=== PATIENT | female | born 1940 | race Caucasian/White ===

== ENCOUNTER 2017-03-30 12:37 | Emergency (ER) | payer MEDICARE, BC ==
[~2017-03-30] VITALS: Ht 172.7 cm; Wt 75.0 kg
[~2017-03-30 12:37] MED LIST: CALC200S; CALC500 PO; CARB200T16 PO; FLUR30CA12 PO; KCL10C PO; LACT PO; METR-1 PO; PREG25 PO; SYNT25TA PO; VITA20003 PO
[2017-03-30 12:43] VITALS: BP 139/84; PULSE 91; RESP 16; TEMP 97.7; O2SAT 99
--- NOTE | 2017-03-30 13:33 | PD ---
HPI Chief Complaint: Dizziness Time Seen by Provider: 12:55 Travel History International Travel<30 days: No Contact w/Intl Traveler<30days: No Traveled to known affect area: No History of Present Illness HPI This 76-year-old female is complaining of some pain in her neck. She says that she feels like the blood in her neck is not getting to her brain. He has been evaluated for blockage in her neck in the past. She has a history of dystonia and at the age of 21 had brain surgery for the dystonia. She had some left- sided headache earlier. She feels like her left ear is blocked. There is no history of trauma PFSH Past Medical History Arthritis: Yes Asthma: No Blood Disorders: No Cancer: No Cardiovascular Problems: Yes (CHF) High Cholesterol: Yes Congestive Heart Failure: Yes COPD: Yes Cerebrovascular Accident: No Diabetes: No Diminished Hearing: No Endocrine: Yes Gastrointestinal Disorders: Yes (GERD) GERD: No Glaucoma: No Genitourinary: No Headaches: No Hepatitis: No Hiatal Hernia: Yes Hypertension: No Immune Disorder: No Implanted Vascular Access Dvce: Yes Musculoskeletal: Yes (OA, NECK PAIN) Neurologic: Yes (DYSTONIA, NEUROPATHY FINGERS, RIGHT ARM & LEFT FOOT, VERTIGO) Psychiatric: No Reproductive: No Respiratory: Yes (COPD) Migraines: No Seizures: No Sleep Apnea: No Thyroid Disease: Yes Ulcer: No Past Surgical History Abdominal Surgery: Yes (APPY 63 years ago) AICD: No Appendectomy: Yes Arteriovenous Shunt: No Body Medical Devices: HARDWARE LEFT HAND, LEFT FOOT Cardiac Surgery: No Cholecystectomy: Yes Ear Surgery: No Endocrine Surgery: No Eye Surgery: No Genitourinary Surgery: No Gynecologic Surgery: Yes (C SECTION) Insulin Pump: No Joint Replacement: Yes (RIGHT AND LEFT HIP, RIGHTT SHOULDER) Neurologic Surgery: Yes (BRAIN SURGERY FOR DYSTONIA X 2) Oral Surgery: No Pacemaker: No Thoracic Surgery: No Tonsillectomy: Yes Other Surgery: Yes Social History Alcohol Use: No Tobacco Use: No Substance Use: No Allergies-Medications (Allergen,Severity, Reaction): Coded Allergies: Penicillin (Verified Allergy, Severe, , 03/30/17) ANAPHYLAXIS Reported Meds & Prescriptions Reported Meds & Active Scripts Active Active Prescriptions or Reported Medications Unobtainable Review of Systems General / Constitutional: No: Fever, Chills Eyes: No: Diploplia, Blurred Vision HENT: Positive: Headaches, No: Lightheadedness Cardiovascular: No: Chest Pain or Discomfort, Palpitations Respiratory: No: Shortness of Breath Gastrointestinal: No: Nausea, Vomiting Genitourinary: No: Urgency Musculoskeletal: No: Myalgias Neurologic: No: Focal Abnormalities Hematologic/Lymphatic: No: Easy Bruising Physical Exam Narrative GENERAL: Well-developed female SKIN: Focused skin assessment warm/dry. HEAD: Atraumatic. Normocephalic. EYES: Pupils equal and round. No scleral icterus. No injection or drainage. ENT: No nasal bleeding or discharge. Mucous membranes pink and moist. NECK: Trachea midline. No JVD. There are no carotid bruits. She complains of some pain with palpation on the left side of the neck CARDIOVASCULAR: Regular rate and rhythm. No murmur appreciated. RESPIRATORY: No accessory muscle use. Clear to auscultation. Breath sounds equal bilaterally. GASTROINTESTINAL: Abdomen soft, non-tender, nondistended. Hepatic and splenic margins not palpable. MUSCULOSKELETAL: No obvious deformities. No clubbing. No cyanosis. No edema. NEUROLOGICAL: Awake and alert. No obvious cranial nerve deficits. Motor grossly within normal limits. Normal speech. PSYCHIATRIC: Appropriate mood and affect; insight and judgment normal. Data Data Last Documented VS Vital Signs Date Time Temp Pulse Resp B/P Pulse Ox O2 Delivery O2 Flow Rate FiO2 03/30/17 15:32 63 20 146/67 99 03/30/17 14:45 Room Air 03/30/17 12:43 97.7 Orders Complete Blood Count With Diff (03/30/17 13:18) Basic Metabolic Panel (Bmp) (03/30/17 13:18) Ct Brain W/O Iv Contrast(Rout) (03/30/17 13:18) Cta Neck W Iv Contrast W 3d (03/30/17 ) Iohexol 350 Inj (Omnipaque 350 Inj) (03/30/17 14:33) Labs Laboratory Tests Test 03/30/17 13:30 White Blood Count 6.3 TH/MM3 Red Blood Count 4.31 MIL/MM3 Hemoglobin 13.8 GM/DL Hematocrit 40.2 % Mean Corpuscular Volume 93.3 FL Mean Corpuscular Hemoglobin 31.9 PG Mean Corpuscular Hemoglobin 34.2 % Concent Red Cell Distribution Width 13.2 % Platelet Count 236 TH/MM3 Mean Platelet Volume 8.6 FL Neutrophils (%) (Auto) 63.7 % Lymphocytes (%) (Auto) 22.5 % Monocytes (%) (Auto) 8.3 % Eosinophils (%) (Auto) 1.2 % Basophils (%) (Auto) 4.3 % Neutrophils # (Auto) 4.0 TH/MM3 Lymphocytes # (Auto) 1.4 TH/MM3 Monocytes # (Auto) 0.5 TH/MM3 Eosinophils # (Auto) 0.1 TH/MM3 Basophils # (Auto) 0.3 TH/MM3 CBC Comment DIFF FINAL Differential Comment Sodium Level 142 MEQ/L Potassium Level 5.0 MEQ/L Chloride Level 107 MEQ/L Carbon Dioxide Level 28.2 MEQ/L Anion Gap 7 MEQ/L Blood Urea Nitrogen 18 MG/DL Creatinine 0.79 MG/DL Estimat Glomerular Filtration 71 ML/MIN Rate Random Glucose 98 MG/DL Calcium Level 9.0 MG/DL MDM Medical Decision Making Medical Screen Exam Complete: Yes Emergency Medical Condition: Yes Medical Record Reviewed: Yes Differential Diagnosis Patient had had some left-sided headache and says that she feels like her blood vessel on the left side of the neck is blocked. I don't find any acute neurologic findings and will do a CT of the brain and CTA of the neck. Narrative Course CT scan of the brain shows postoperative changes which are stable when compared with previous scans. There is no acute intracranial abnormality. CTA of the carotids was obtained. He is noted to have critical stenosis at the origin of the left internal carotid string sign throughout the remainder of the internal carotid. There is reconstitution at the level of the skull base. The left vertebral originates directly from the arch. There is minimal atherosclerotic plaquing of the bifurcation on the right but no hemodynamically significant stenosis. I have reviewed previous charts. In 2002 there is a carotid ultrasound which suggests that she has total occlusion of the left internal carotid. She has seen Dr. Galdamez in the past and said she had seen Dr. Carrera at one time. Dr. Galdamez had told her that the stenosis was too severe for surgery. My plan was to discuss the case with vascular surgery. I discussed this with the patient and she does not wish to have surgery as she is aware of the risk of stroke. I have stressed to her the importance that she take aspirin. She will be released and she says she will probably follow-up with Dr. Carrera. Diagnosis Primary Impression: Carotid stenosis Qualified Code: I65.22 - Stenosis of left carotid artery Additional Instructions: take aspirin daily Scripts Unable to Obtain Active Prescriptions or Reported Meds Disposition: 01 DISCHARGE HOME Condition: Stable Lion Sage MD Mar 30, 2017 13:33
[2017-03-30 13:35] VITALS: BP 147/74; PULSE 73; RESP 20; O2SAT 97
[2017-03-30 13:44] LABS: BASOPHIL # 0.3 TH/MM3 (0-0.2); BASOPHIL % 4.3 % (0.0-2.0); EOSINOPHIL # 0.1 TH/MM3 (0-0.4); EOSINOPHIL % 1.2 % (0.0-4.0); HEMATOCRIT 40.2 % (35.0-46.0); HEMO FLAGS DIFF FINAL; LYMPH % 22.5 % (9.0-44.0); LYMPHOCYTE # 1.4 TH/MM3 (1.0-4.8); MEAN CELL VOLUME 93.3 FL (80.0-100.0); MEAN CORPUSCULAR HEMOGLOBIN 31.9 PG (27.0-34.0); MEAN CORPUSCULAR HGB CONC 34.2 % (32.0-36.0); MONO % 8.3 % (0.0-8.0); NEUT % 63.7 % (16.0-70.0); PLATELET COUNT 236 TH/MM3 (150-450); RED BLOOD COUNT 4.31 MIL/MM3 (4.00-5.30); RED CELL DISTRIBUTION WIDTH 13.2 % (11.6-17.2); WHITE BLOOD COUNT 6.3 TH/MM3 (4.0-11.0)
[2017-03-30 13:53] LABS: BICARBONATE 28.2 MEQ/L (21.0-32.0)
[2017-03-30] MEDS ORDERED: IOHEXOL 350 MG/ML 10 ML VIAL (for RAD DIAG) IV ONE (14:33)
[2017-03-30 14:45] VITALS: BP 140/74; PULSE 74; RESP 16; O2SAT 99
--- NOTE | 2017-03-30 14:46 | RADRPT ---
EXAM DATE/TIME: 03/30/2017 14:12 [facility] COMPARISON: CT BRAIN W/O CONTRAST, November 20, 2010, 13:45. INDICATIONS : Cephalgia. Dizziness. RADIATION DOSE: 59.65 CTDIvol (mGy) MEDICAL HISTORY : Chronic obstructive pulmonary disease. Congestive heart failure. Gastroesophageal reflux disease.Dyst onia. SURGICAL HISTORY : Appendectomy. Cholecystectomy. section.Brain surgery for dystonia. ENCOUNTER: Initial ACUITY: 1 day PAIN SCALE: 4/10 LOCATION: cranial TECHNIQUE: Multiple contiguous axial images were obtained of the head. Using automated exposure control and adj ustment of the mA and/or kV according to patient size, radiation dose was kept as low as reasonably a chievable to obtain optimal diagnostic quality images. FINDINGS: CEREBRUM: Postsurgical features with clips noted near the left frontal horn along the left midbrain perimesence phalic region. Left frontoparietal insufflation defect or with bilateral basal ganglia lacunar infarc ts unchanged from prior exam. Winston-white matter differentiation is otherwise maintained. The ventricl es are stable and slightly asymmetrical. No evidence of midline shift, mass lesion, hemorrhage or ac [place] infarction. No extra-axial fluid collections are seen. POSTERIOR FOSSA: The cerebellum and brainstem are intact. The 4th ventricle is midline. The cerebellopontine angle i s unremarkable. EXTRACRANIAL: The visualized portion of the orbits is intact. SKULL: Stable postsurgical changes of left high parietal craniectomy. CONCLUSION: 1. Stable postoperative changes, as above. 2. No acute intracranial abnormality. Luis Enrique Weaver MD on March 30, 2017 at 14:37 Board Certified Radiologist. This report was verified electronically.
--- NOTE | 2017-03-30 15:28 | RADRPT ---
EXAM DATE/TIME: 03/30/2017 14:12 [facility] COMPARISON: CT BRAIN W/O CONTRAST, March 30, 2017, 14:12. CT ABDOMEN & PELVIS W CONTRAST, November 03, 2015, 12:20 . INDICATIONS : Left neck pain. Evaluate for occlusion. IV CONTRAST: 75 cc Omnipaque 350 (iohexol) IV RADIATION DOSE: 42.89 CTDIvol (mGy) MEDICAL HISTORY : Chronic obstructive pulmonary disease. Congestive heart failure. Gastroesophageal reflux disease. Dys jamaal. SURGICAL HISTORY : Appendectomy. Cholecystectomy. section. Brain surgery for dystonia. ENCOUNTER: Initial ACUITY: 4 - 6 days PAIN SCALE: 4/10 LOCATION: Left neck Elevated flow velocities and ICA/CCA ratios have been found to correlate with increased degrees of vessel stenosis, calculated as percentage of diameter relative to a normal segment of distal ICA/CCA. TECHNIQUE: Volumetric scanning was performed using a multirow detector CT scanner. The data was post processed with a variety of visualization algorithms including full-volume maximum intensity projection, multip lanar sliding thin-slab reformation, curved-planar reformation, and surface-rendering techniques. Us ing automated exposure control and adjustment of the mA and/or kV according to patient size, radiatio n dose was kept as low as reasonably achievable to obtain optimal diagnostic quality images. FINDINGS: AORTIC ARCH: The left vertebral originates directly from the arch. The origins of the great vessels are widely pat ent. RIGHT CAROTID: The common carotid is widely patent. There is mild atherosclerotic plaquing at the bifurcation. The i nternal carotid is widely patent throughout its course. LEFT CAROTID: The common carotid is widely patent. The examination demonstrates a critical stenosis at the origin o f the left internal carotid. There is essentially a string sign throughout the entire remainder of th e internal carotid. There is reconstitution at the level the skull base. VERTEBRALS: The left vertebral originates directly from the arch and is somewhat smaller than the right. The righ t is a sizable vessel. Both are widely patent. CONCLUSION: 1. Left carotid: 2. There is critical stenosis at the origin of the left internal carotid. The entire left internal ca rotid up to the skull base is diminutive in size. There is reconstitution at the level of the skull b ase with a patent left MCA. 3. The left vertebral originates directly from the arch. 4. Minimal atherosclerotic plaquing of the bifurcation on the right with no hemodynamically significa nt stenosis. Harpreet Melchor MD on March 30, 2017 at 15:17 Board Certified Radiologist. This report was verified electronically.
[2017-03-30 15:32] VITALS: BP 146/67; PULSE 63; RESP 20; O2SAT 99
[2017-03-30] MEDS ORDERED: ASPIRIN 325 MG TAB PO ONE (16:00)
== END 2017-03-30 17:01 | disposition home or self-care (01) ==
LOC: PHED 12:37
DX: I65.22 Occlusion and stenosis of left carotid artery (principal); R51 Headache; E78.00 Pure hypercholesterolemia, unspecified; I50.9 Heart failure, unspecified; J44.9 Chronic obstructive pulmonary disease, unspecified; K21.9 Gastro-esophageal reflux disease without esophagitis
CPT/HCPCS: 70450; 70498; 80048; 85025; 99285; Q9967

== ENCOUNTER 2018-01-23 18:22 | Inpatient (IN) | payer MEDICARE, BC ==
[~2018-01-23] VITALS: Ht 177.8 cm; Wt 78.0 kg
[2018-01-23] VITALS (12 sets, daily range): BP systolic 138–210; BP diastolic 60–110; PULSE 68–115; RESP 16–20; TEMP 98.9; O2SAT 95–100
[2018-01-23] MEDS ORDERED: IODIXANOL 320 MG/ML 10 ML VIAL (for Rad CT) IVCONTRAST ONE (18:23)
[2018-01-23] MEDS ORDERED: SODIUM CHLOR 0.9% 1000 ML INJ 1,000 ML IV ONE (18:27)
[2018-01-23 18:47] LABS: AUTOMATED NEUTROPHIL # 6.4 TH/MM3 (1.8-7.7); BASOPHIL # 0.1 TH/MM3 (0-0.2); BASOPHIL % 1.1 % (0.0-2.0); EOSINOPHIL # 0.3 TH/MM3 (0-0.4); EOSINOPHIL % 2.2 % (0.0-4.0); HEMATOCRIT 39.5 % (35.0-46.0); HEMOGLOBIN 13.7 GM/DL (11.6-15.3); LYMPH % 36.6 % (9.0-44.0); LYMPHOCYTE # 4.5 TH/MM3 (1.0-4.8); MEAN CELL VOLUME 96.1 FL (80.0-100.0); MEAN CORPUSCULAR HEMOGLOBIN 33.3 PG (27.0-34.0); MEAN CORPUSCULAR HGB CONC 34.7 % (32.0-36.0); MEAN PLATELET VOLUME 9.5 FL (7.0-11.0); MONO % 8.1 % (0.0-8.0); PLATELET COUNT 256 TH/MM3 (150-450); RED BLOOD COUNT 4.11 MIL/MM3 (4.00-5.30); RED CELL DISTRIBUTION WIDTH 14.3 % (11.6-17.2); WHITE BLOOD COUNT 12.3 TH/MM3 (4.0-11.0)
--- NOTE | 2018-01-23 18:48 | PD ---
HPI Chief Complaint: Stroke Alert Time Seen by Provider: 18:27 Travel History International Travel<30 days: No Contact w/Intl Traveler<30days: No Traveled to known affect area: No History of Present Illness HPI 77-year-old female was brought to the emergency room by EMS for a stroke alert emergently. She was last seen normal at 5:15 PM. The son noticed after that that she was having some slurred speech. When this did not get better he called 911. EMS arrived and noticed dysarthria as well. Blood pressure was 170 /70. Patient was complaining of headache. She is awake and GCS is 15. Patient was also noticed to have a left-sided facial droop but as per the patient she has had a facial droop in the past. Patient is following commands. Headache is generalized. Patient is not on any blood thinners. PFSH Past Medical History Narrative Medical List of her past medical, surgical, social and family history reviewed from the nursing note. Arthritis: Yes Asthma: No Blood Disorders: No Cancer: No Cardiovascular Problems: Yes (CHF) High Cholesterol: Yes Congestive Heart Failure: Yes COPD: Yes Cerebrovascular Accident: No Diabetes: No Diminished Hearing: No Endocrine: Yes Gastrointestinal Disorders: Yes (GERD) GERD: No Glaucoma: No Genitourinary: No Headaches: No Hepatitis: No Hiatal Hernia: Yes Hypertension: No Immune Disorder: No Implanted Vascular Access Dvce: Yes Musculoskeletal: Yes (OA, NECK PAIN) Neurologic: Yes (DYSTONIA, NEUROPATHY FINGERS, RIGHT ARM & LEFT FOOT, VERTIGO) Psychiatric: No Reproductive: No Respiratory: Yes (COPD) Migraines: No Seizures: No Sleep Apnea: No Thyroid Disease: Yes Ulcer: No Past Surgical History Abdominal Surgery: Yes (APPY 63 years ago) AICD: No Appendectomy: Yes Arteriovenous Shunt: No Body Medical Devices: HARDWARE LEFT HAND, LEFT FOOT Cardiac Surgery: No Cholecystectomy: Yes Ear Surgery: No Endocrine Surgery: No Eye Surgery: No Genitourinary Surgery: No Gynecologic Surgery: Yes (C SECTION) Insulin Pump: No Joint Replacement: Yes (RIGHT AND LEFT HIP, RIGHTT SHOULDER) Neurologic Surgery: Yes (BRAIN SURGERY FOR DYSTONIA X 2) Oral Surgery: No Pacemaker: No Thoracic Surgery: No Tonsillectomy: Yes Other Surgery: Yes Social History Alcohol Use: No Tobacco Use: No Substance Use: No Allergies-Medications (Allergen,Severity, Reaction): Coded Allergies: penicillin G (Unverified Allergy, Severe, , 05/24/17) ANAPHYLAXIS Comments List of her allergies reviewed from the nursing note. Reported Meds & Prescriptions Reported Meds & Active Scripts Active Reported Tramadol (Tramadol HCl) 50 Mg Tab 50 Mg PO Q8H PRN Temazepam 15 Mg Cap 15 Mg PO HS PRN Prednisone 2.5 Mg Tab 2.5 Mg PO DAILY Narrative Medication List of her home medications reviewed from the nursing note. Review of Systems Except as stated in HPI: all other systems reviewed are Neg Neurologic: Positive: Weakness, Headache Physical Exam Narrative GENERAL: Awake, alert, anxious, elderly, moderate to SKIN: Focused skin assessment warm/dry. HEAD: Atraumatic. Normocephalic. EYES: Pupils equal and round. No scleral icterus. No injection or drainage. ENT: No nasal bleeding or discharge. Mucous membranes pink and moist. NECK: Trachea midline. No JVD. CARDIOVASCULAR: Regular rate and rhythm. No murmur appreciated. RESPIRATORY: No accessory muscle use. Clear to auscultation. Breath sounds equal bilaterally. GASTROINTESTINAL: Abdomen soft, non-tender, nondistended. Hepatic and splenic margins not palpable. MUSCULOSKELETAL: No obvious deformities. No clubbing. No cyanosis. No edema. NEUROLOGICAL: Awake and alert. No obvious cranial nerve deficits. NIH stroke score of 5 for left-sided facial droop and left lower extremity weakness. Patient also has dysarthria. PSYCHIATRIC: Appropriate mood and affect; insight and judgment normal. Data Data Last Documented VS Vital Signs Date Time Temp Pulse Resp B/P (MAP) Pulse Ox O2 Delivery O2 Flow Rate FiO2 01/23/18 18:46 69 16 155/72 (99) 99 Room Air 01/23/18 18:38 21 Orders Orders Diet Npo (01/23/18 Dinner) Activity Bed Rest (01/23/18 ) Electrocardiogram (01/23/18 ) I-Stat Profile (01/23/18 18:27) Prothrombin Time / Inr (Pt) (01/23/18 18:27) Act Partial Throm Time (Ptt) (01/23/18 18:27) Complete Blood Count With Diff (01/23/18 18:27) Fibrinogen (01/23/18 18:27) Creatine Kinase (Cpk) (01/23/18 18:27) Troponin I (01/23/18 18:27) Ua Includes Microscopic (01/23/18 18:27) Drug Screen, Random Urine (01/23/18:) Type And Screen (01/23/18:) Ct Brain W/O Iv Contrast(Rout) (01/23/18 ) Cta Brain W Iv Contrast W 3d (01/23/18 18:27) Beta Hcg (Quant/Titer) (01/23/18 18:) Consult Neurology (01/23/18 ) Blood Glucose (01/23/18 18:) Ecg Monitoring (01/23/18:) Neuro Checks Q2HX12,Q4H (01/23/18 18:) Nursing Bedside Swallow Assess .ONCE (01/23/18:) Iv Access Insert/Monitor (01/23/18:) NPO (01/23/18 18:) Oximetry (01/23/18 18:) Resp Oxygen Nc Stroke (01/23/18 ) Sodium Chlor 0.9% 1000 Ml Inj (Ns 1000 M (01/23/18 18:27) Cath For Specimen (01/23/18 18:) Nicardipine Inj (Cardene Inj) (01/23/18 18:45) (Hub Use Only)Inp Phy Cons/Ref (01/23/18 ) Ondansetron Inj (Zofran Inj) (01/23/18 19:00) Ondansetron Inj (Zofran Inj) (01/23/18 19:00) Propofol 1000 Mg/100 Ml Inj (Diprivan 10 (01/23/18 19:00) Succinylcholine Inj (Quelicin Inj) (01/23/18 19:00) Etomidate Inj (Amidate Inj) (01/23/18 19:00) Etomidate Inj (Amidate Inj) (01/23/18 19:02) Propofol 500 Mg/50 Ml Inj (Diprivan 500 (01/23/18 19:03) Rebecca-Gastric Tube Insert/Mon (01/23/18 19:02) Urinary Catheter Insert/Apply (01/23/18 19:02) Admit Order (Ed Use Only) (01/23/18 19:02) Labs Laboratory Tests Test 01/23/18 18:30 White Blood Count 12.3 TH/MM3 Red Blood Count 4.11 MIL/MM3 Hemoglobin 13.7 GM/DL Bedside Hemoglobin 13.3 G/DL Hematocrit 39.5 % Bedside Hematocrit 39.0 % Mean Corpuscular Volume 96.1 FL Mean Corpuscular Hemoglobin 33.3 PG Mean Corpuscular Hemoglobin Concent 34.7 % Red Cell Distribution Width 14.3 % Platelet Count 256 TH/MM3 Mean Platelet Volume 9.5 FL Neutrophils (%) (Auto) 52.0 % Lymphocytes (%) (Auto) 36.6 % Monocytes (%) (Auto) 8.1 % Eosinophils (%) (Auto) 2.2 % Basophils (%) (Auto) 1.1 % Neutrophils # (Auto) 6.4 TH/MM3 Lymphocytes # (Auto) 4.5 TH/MM3 Monocytes # (Auto) 1.0 TH/MM3 Eosinophils # (Auto) 0.3 TH/MM3 Basophils # (Auto) 0.1 TH/MM3 CBC Comment AUTO DIFF Differential Comment AUTO DIFF CONFIRMED Platelet Estimate NORMAL Platelet Morphology Comment NORMAL Prothrombin Time 9.9 SEC Prothromb Time International Ratio 1.0 RATIO Activated Partial Thromboplast Time 21.4 SEC Fibrinogen 361 mg/dL Bedside Sodium 140 MMOL/L Bedside Potassium 3.7 MMOL/L Bedside Chloride 108 MMOL/L Bedside Blood Urea Nitrogen 22 MG/DL Bedside Creatinine 0.7 MG/DL Bedside Glucose 130 MG/DL Total Creatine Kinase 47 U/L Troponin I LESS THAN 0.02 NG/ML Human Chorionic Gonadotropin, Quant 3 MIU/ML MDM Medical Decision Making Medical Screen Exam Complete: Yes Emergency Medical Condition: Yes Medical Record Reviewed: Yes Differential Diagnosis Acute CVA, intracranial bleed Narrative Course 6:45 PM I discussed with the case with Dr. Mirza after the stroke alert was called. He wanted me to call him back after the CT scan report. I was just told that patient is in the CT scanner and she has a large head bleed. She is getting a CT angiogram of the brain as well. I put a call out for the geographic information system surveyor and the neurosurgeon. The nurse told me that patient had a large emesis in the CT scan. 6:53 PM I discussed the case with Dr. Johns from neurosurgery. Awaiting for the geographic information system surveyor to call back. 7:37 PM I decided to intubate the patient when she came back from the CT since she continues to be nauseous and I was concerned off a possibility of declining GCS and aspiration. Please refer to my procedure note. Patient tolerated the procedure well. Her son was in the room and I discussed the case with her son and let him know about the test results and the plan. I discussed the case with the radiologist and as per him he does not see any aneurysmal bleed on the CTA. There is some metal in the brain that he can see which he does not think is aneurysm coils. I discussed it with her son who is here and he said she had a vein surgery for her dystonia when she was 19 or 20 years old at [facility]. He does not know any details more than that about it. I have let Dr. Frederick know about the CTA findings. Patient has a blood pressure 158/60 at this point on Cardene drip. Critical Care Narrative Aggregate critical care time was 75 minutes. Time to perform other separately billable procedures was not included in the critical care time. My time did not include minutes spent treating any other patients simultaneously or on activities that did not directly contribute to the patient's treatment. The services I provided to this patient were to treat and/or prevent clinically significant deterioration that could result in: Neurologic deficit, intracranial bleed, nicardipine drip I provided critical care services requiring my management, as noted below: Chart data review, documentation time, medication orders and management, vital sign assessments/reviewing monitor data, ordering and reviewing lab tests, ordering and interpreting/reviewing x-rays and diagnostic studies, care of the patient and discussion of the patient with the admitting physicians. Procedures Procedure Narrative After the risks and benefits were discussed the following procedure was performed: INTUBATION: The patient was put in optimal position for the procedure. Rapid sequence intubation was initiated by me using 20 milligrams of etomidate IV and 100 milligrams of succinylcholine IV. The patient was intubated with a 7.5 cuffed endotracheal tube. Tube placement was confirmed by visualization of the tube and balloon passing through the cords, capnometry and subsequent chest x-ray. Breath sounds were equal and well aerated bilaterally postintubation. No breath sounds over stomach. Patient tolerated procedure well. EKG Prior to Arrival: No Physician Communication Physician Communication Dr. Mirza Diagnosis Primary Impression: Intracranial bleed Additional Impression: Hypertensive emergency Admitting Information Admitting Physician Requests: it Cristiano Zhao MD Jan 23, 2018 18:48
--- NOTE | 2018-01-23 18:52 | RADRPT ---
EXAM DATE/TIME: 01/23/2018 18:33 [facility] COMPARISON: CT BRAIN W/O CONTRAST, March 30, 2017, 14:12. INDICATIONS : Slurred speech RADIATION DOSE: 56.35 CTDIvol (mGy) This report was called to Dr. Zhao at 1845 MEDICAL HISTORY : Unable to obtain SURGICAL HISTORY : Unable to obtain ENCOUNTER: Initial ACUITY: 1 day PAIN SCALE: 0/10 LOCATION: cranial TECHNIQUE: Multiple contiguous axial images were obtained of the head. Using automated exposure control and adj ustment of the mA and/or kV according to patient size, radiation dose was kept as low as reasonably a chievable to obtain optimal diagnostic quality images. DICOM format image data is available electro nically for review and comparison. FINDINGS: There is parenchymal hemorrhage in the nasal cisterns involving the vermis of the cerebellum. The bl ood is combined to the subdural space, subarachnoid space and some parenchymal. This is suspicious f or a vascular bleed . Hemorrhagic stroke is the consideration. CT is pending to exclude avascular s ource. The fourth ventricle is midline. In the supratentorial brain there are some surgical clips evident. There is mild central and cortica l atrophy. CONCLUSION: Vermian Hemorrhage midline posterior fossa as described above without blood in the fourth ventricle. This could be hemorrhagic stroke. Vascular bleed is another consideration. CTA is pending. Juan Melchor MD FACR on January 23, 2018 at 18:44 Board Certified Radiologist. This report was verified electronically.
[2018-01-23] MEDS ORDERED: ETOMIDATE 20 MG/10 ML VIAL IV PUSH ONE (19:00)
[2018-01-23] MEDS ORDERED: PROPOFOL 1000 MG/100 ML INJ 100 ML IV PRN (19:00)
[2018-01-23] MEDS ORDERED: ONDANSETRON HCL 4 MG/2 ML VIAL ONE (19:00)
[2018-01-23] MEDS ORDERED: ONDANSETRON HCL 4 MG/2 ML VIAL IV PUSH ONE (19:00)
[2018-01-23] MEDS ORDERED: SUCCINYLCHOLINE CHLORIDE 100 MG/5 ML SYRINGE IV PUSH ONE (19:00)
[2018-01-23] MEDS ORDERED: ETOMIDATE 40 MG/20 ML VIAL ONE (19:02)
[2018-01-23] MEDS ORDERED: PROPOFOL 500 MG/50 ML INJ 50 ML ONE (19:03)
[2018-01-23 19:04] LABS: TROPONIN I LESS THAN 0.02 NG/ML (0.02-0.05)
[2018-01-23 19:06] LABS: PROTHROMBIN TIME - PATIENT 9.9 SEC (9.8-11.6)
--- NOTE | 2018-01-23 19:38 | RADRPT ---
EXAM DATE/TIME: 01/23/2018 18:47 [facility] COMPARISON: CT BRAIN W/O CONTRAST, March 30, 2017, 14:12. CT BRAIN W/O CONTRAST, January 23, 2018, 18:33. INDICATIONS : Slurred speech IV CONTRAST: 99 cc Visipaque (iodixanol) IV ; Cumulative dose for multiple exams. RADIATION DOSE: 9.94 CTDIvol (mGy) ; Combined studies MEDICAL HISTORY : Unable to obtain SURGICAL HISTORY : Unable to obtain ENCOUNTER: Initial ACUITY: 1 day PAIN SCALE: 0/10 LOCATION: CTA brai TECHNIQUE: Volumetric scanning was performed using a multi-row detector CT scanner. The data was post processed with a variety of visualization algorithms including full volume maximum intensity projection, multi -planar sliding thin slab reformation, curved planar reformation, and surface rendering techniques. Using automated exposure control and adjustment of the mA and/or kV according to patient size, radiat ion dose was kept as low as reasonably achievable to obtain optimal diagnostic quality images. DICO M format image data is available electronically for review and comparison. FINDINGS: There is occlusion of the left internal carotid artery. The right internal carotid artery is patent. There is a patent anterior communicating artery. The anterior and middle cerebral arteries on the lef t are filled via collaterals. There is asymmetry to the vertebral arteries with the right vertebral a rtery being the dominant vertebral artery. The basilar artery is seen to normally bifurcate into the posterior cerebral arteries. There is patent posterior communicating artery on the left. An aneurysm is not seen. CONCLUSION: Occlusion of the left internal carotid artery. An aneurysm is not seen. Brayan Marion MD on January 23, 2018 at 19:28 Board Certified Radiologist. This report was verified electronically.
[2018-01-23] MEDS: niCARdipine INJ 25 MG in SODIUM CHLOR 0.9% 250 ML INJ 240 ML IV PRN (19:43)
[2018-01-23] MEDS ORDERED: GLUCAGON 1 MG/ML VIAL OTHER PRN (19:45)
[2018-01-23] MEDS ORDERED: CHLORHEXIDINE GLUCONATE 2 % 1 PACK (2 CLOTHS) TOP PRN (20:00)
[2018-01-23] MEDS ORDERED: LACTULOSE SYRUP 20 GM/30 ML CUP PO PRN (20:00)
[2018-01-23] MEDS ORDERED: MAGNESIUM HYDROXIDE SUSP 30 ML CUP PO PRN (20:00)
[2018-01-23] MEDS ORDERED: SENNOSIDES 8.6 MG TAB PO PRN (20:00)
[2018-01-23] MEDS ORDERED: SODIUM CHLORIDE 0.9% FLUSH 10 ML FLUSH IV FLUSH PRN (20:00)
[2018-01-23] MEDS ORDERED: BISACODYL 10 MG SUPP RECTAL PRN (20:00)
[2018-01-23] MEDS ORDERED: NURSING INFORMATION XX SCH (20:00)
[2018-01-23] MEDS ORDERED: ACETAMINOPHEN 325 MG TAB NG PRN (20:00)
[2018-01-23] MEDS: CHLORHEXIDINE 0.12% (ORAL KIT) 15 ML CUP MT SCH (20:00)
--- NOTE | 2018-01-23 20:05 | RADRPT ---
EXAM DATE/TIME: 01/23/2018 18:47 [facility] COMPARISON: CTA CAROTID ARTERIES W 3D RECON, January 23, 2018, 14:30. INDICATIONS : Stroke alert. IV CONTRAST: 99 cc Visipaque (iodixanol) IV ; Cumulative dose for multiple exams. RADIATION DOSE: 9.89 CTDIvol (mGy) ; Combined studies MEDICAL HISTORY : Non-responsive. SURGICAL HISTORY : Non-responsive. ENCOUNTER: Initial ACUITY: 1 day PAIN SCALE: Non-responsive LOCATION: Bilateral neck Elevated flow velocities and ICA/CCA ratios have been found to correlate with increased degrees of vessel stenosis, calculated as percentage of diameter relative to a normal segment of distal ICA/CCA. TECHNIQUE: Volumetric scanning was performed using a multirow detector CT scanner. The data was post processed with a variety of visualization algorithms including full-volume maximum intensity projection, multip lanar sliding thin-slab reformation, curved-planar reformation, and surface-rendering techniques. Us ing automated exposure control and adjustment of the mA and/or kV according to patient size, radiatio n dose was kept as low as reasonably achievable to obtain optimal diagnostic quality images. DICOM f ormat image data is available electronically for review and comparison. FINDINGS: AORTIC ARCH: There is a three-vessel origin of the great vessels from the aorta. No evidence of ostial narrowing. Calcifications are seen aortic arch. The left vertebral artery arises from the base of the left subc lavian artery. RIGHT CAROTID: The common carotid artery is intact. There is calcifications in the carotid bulb region. The internal carotid artery lumen is smooth without stenosis. The external carotid artery is intact. LEFT CAROTID: The common carotid artery is intact. There is plaque at the carotid bulb region. There is occlusion of the left internal carotid artery. The external carotid artery is intact. VERTEBRALS: The vertebral arteries have a symmetric diameter. No stenotic lesions are seen. CONCLUSION: Occlusion of the left internal carotid artery. Brayan Marion MD on January 23, 2018 at 19:58 Board Certified Radiologist. This report was verified electronically.
--- NOTE | 2018-01-23 20:14 | RADRPT ---
EXAM DATE/TIME: 01/23/2018 19:17 [facility] COMPARISON: CHEST SINGLE AP, November 05, 2015, 11:05. INDICATIONS : Post intubation. MEDICAL HISTORY : Unobtainable. SURGICAL HISTORY : Unobtainable. ENCOUNTER: Initial ACUITY: 1 day PAIN SCORE: Non-responsive. LOCATION: Bilateral chest FINDINGS: The patient is intubated with the tip of ET tube 1 cm from the gordon. NG tube tip is directed into t he stomach. The heart size is normal. The lungs are grossly clear. There is a right shoulder prosthes is. CONCLUSION: ET tube 1 cm from the gordon. Brayan Marion MD on January 23, 2018 at 20:10 Board Certified Radiologist. This report was verified electronically.
--- NOTE | 2018-01-23 20:16 | HHI.HP ---
[facility] Service Critical Care Medicine Primary Care Physician Shant Stringer MD Admission Diagnosis Intracranial bleed, hypertensive crisis Diagnosis: (1) Acute respiratory failure Diagnosis: Principal (2) Intracranial hemorrhage Diagnosis: Principal (3) Hypertensive emergency Diagnosis: Principal (4) Hypothyroidism Diagnosis: Secondary (5) Dystonia Diagnosis: Secondary (6) Leukocytosis Diagnosis: Secondary Chief Complaint: Altered mental status a stroke alert with left-sided weakness and aphasia Travel History International Travel<30 Days: No Contact w/Intl Traveler <30 Da: No Traveled to Known Affected Are: No History of Present Illness This is a 77-year-old female. Date of admission 01/23/2018. Past medical history includes dystonia status post brain surgery 2, chronic left carotid stenosis since 2004, hypertension, sciatica, hypothyroidism, depression , dyslipidemia, IBS, peripheral neuropathy, gastroesophageal disease, COPD with no history of tobaccoism? chronic pericardial effusion?, Osteoarthritis with chronic respiratory weakness due to dystonia. She presents to [facility] as a stroke alert. She was last seen normal at 5:15 PM. Her son noticed slurred speech. EMS was called. Dysarthria and left-sided weakness was noted as well. She was hypertensive with systolic blood pressure in the 170s. She is complaining of generalized headache. Initially, awake and GCS is 15. Patient was also noticed to have a left-sided facial droop but as per the patient she has had a facial droop in the past. Patient is following commands. Headache is generalized. Patient is not on any blood thinners. But occasionally takes ibuprofen CT brain revealed midline posterior hemorrhage involving the vermis/cerebellar bleed. This involves the subdural, subarachnoid and intra-parenchymal space. CT angiogram of the brain revealed no signs of aneurysm. Chronic left internal carotid occlusion. Patient had decline in mental status/was not protecting her airway due to secretions and was emergently intubated by the ED physician using etomidate and succinylcholine. She is currently hypertensive in spontaneously moving her right upper extremity and lower extremity on the ventilator on 50 mg/ mg/min of propofol. Discussed with Dr. Anderson. Recommended systolic blood pressure between 110-140. No hypertonic saline. No seizure prophylaxis. Repeat brain CT in a.m. Review of Systems ROS Limitations: Intubated Past Family Social History Allergies: Coded Allergies: penicillin G (Unverified Allergy, Severe, , 8/15/17) ANAPHYLAXIS Past Medical History Dystonia Chronic left carotid stenosis since 2004 complete occlusion Sciatica Hyperlipidemia Hypothyroidism Osteoporosis/osteoarthritis peripheral neuropathy Chronic right upper extremity weakness/chronic due to her dystonia Depression History of rheumatoid fevers childhood Chronic pericardial effusion Insomnia Allergic rhinitis Past Surgical History T&A Appendectomy Left ankle ORIF Right total hip replacement Left total hip replacement Right rotator cuff repair Right carpal tunnel release Brain surgery 2 clippings for dystonia at [place] Left arm unknown type Reported Medications Unknown. Active Ordered Medications Reviewed in EMR Family History Because her father with hypertension. Mother with osteoarthritis, asthma and cataracts, diverticulosis, COPD, hemorrhoids, dyslipidemia, anxiety, osteoporosis ulcer disease stroke and hypothyroidism. Social History . 2 sons. Does not use alcohol use. No tobacco use ever. No illicit drug use Physical Exam Vital Signs Vital Signs Date Time Temp Pulse Resp B/P (MAP) Pulse Ox O2 Delivery O2 Flow Rate FiO2 01/23/18 19:45 98.9 89 16 155/67 (96) 100 Ventilator 50 01/23/18 19:43 100 01/23/18 19:37 92 20 158/60 (92) 100 Ventilator 50 01/23/18 19:10 115 20 210/110 (143) 98 Ventilator 50 01/23/18 18:46 69 16 155/72 (99) 99 Room Air 01/23/18 18:45 99 Room Air 01/23/18 18:38 95 Room Air 21 01/23/18 18:33 98 21 01/23/18 18:26 68 18 148/72 (97) 99 Room Air Physical Exam GENERAL: 77-year-old female currently orotracheally intubated SKIN: Warm and dry. No rash HEAD: Atraumatic. Normocephalic. EYES: Pupils equal and round about 3 mm bilaterally and reactive. No scleral icterus. No injection or drainage. ENT: No nasal bleeding or discharge. Mucous membranes pink and moist. NECK: Trachea midline. No JVD. CARDIOVASCULAR: Regular rate and rhythm. S1, S2 no S4. Without murmurs, clicks gallops or rubs RESPIRATORY: No accessory muscle use. Clear to auscultation. Breath sounds equal bilaterally. GASTROINTESTINAL: Abdomen soft, non-tender, nondistended. Hypoactive bowel sounds are appreciated MUSCULOSKELETAL: Extremities without significant peripheral edema. No obvious deformities. NEUROLOGICAL: Arousable on the ventilator. Pointing to ET tube. Strength is 5 out of 5 right upper lobe 30. 3 out of 5 left upper lower extremity. Prior to admission positive for aphasia/dysarthria. Laboratory Laboratory Tests Test 01/23/18 18:30 White Blood Count 12.3 Red Blood Count 4.11 Hemoglobin 13.7 Bedside Hemoglobin 13.3 Hematocrit 39.5 Bedside Hematocrit 39.0 Mean Corpuscular Volume 96.1 Mean Corpuscular Hemoglobin 33.3 Mean Corpuscular Hemoglobin Concent 34.7 Red Cell Distribution Width 14.3 Platelet Count 256 Mean Platelet Volume 9.5 Neutrophils (%) (Auto) 52.0 Lymphocytes (%) (Auto) 36.6 Monocytes (%) (Auto) 8.1 Eosinophils (%) (Auto) 2.2 Basophils (%) (Auto) 1.1 Neutrophils # (Auto) 6.4 Lymphocytes # (Auto) 4.5 Monocytes # (Auto) 1.0 Eosinophils # (Auto) 0.3 Basophils # (Auto) 0.1 CBC Comment AUTO DIFF Differential Comment AUTO DIFF CONFIRMED Platelet Estimate NORMAL Platelet Morphology Comment NORMAL Prothrombin Time 9.9 Prothromb Time International Ratio 1.0 Activated Partial Thromboplast Time 21.4 Fibrinogen 361 Bedside Sodium 140 Bedside Potassium 3.7 Bedside Chloride 108 Bedside Blood Urea Nitrogen 22 Bedside Creatinine 0.7 Bedside Glucose 130 Total Creatine Kinase 47 Troponin I LESS THAN 0.02 Human Chorionic Gonadotropin, Quant 3 Result Diagram: 01/23/18 1830 Imaging Last Impressions Head CTA 01/23/18 1827 Signed Impressions: Service Date/Time: Tuesday, January 23, 2018 18:47 - CONCLUSION: Occlusion of the left internal carotid artery. An aneurysm is not seen. Brayan Marion MD Head CT 01/23/18 0000 Signed Impressions: Service Date/Time: Tuesday, January 23, 2018 18:33 - CONCLUSION: Vermian Hemorrhage midline posterior fossa as described above without blood in the fourth ventricle. This could be hemorrhagic stroke. Vascular bleed is another consideration. CTA is pending. Juan Melchor MD FACR Septic Shock Reassessment Septic shock perfusion: reassessment completed Caprini VTE Risk Assessment Caprini VTE Risk Assessment: Mod/High Risk (score >= 2) VTE Pharm Contraindication: Hemorrhage Caprini Risk Assessment Model Point Value = 1 Point Value = 2 Point Value = 3 Point Value = 5 Age 41-60 Minor surgery BMI > 25 kg/m2 Swollen legs Varicose veins or History of unexplained or recurrent spontaneous Oral contraceptives or hormone replacement Sepsis (< 1 month) Serious lung disease, including pneumonia (< 1 month) Abnormal pulmonary function Acute myocardial infarction Congestive heart failure (< 1 month) History of inflammatory bowel disease Medical patient at bed rest Age 61-74 Arthroscopic surgery Major open surgery (> 45 min) Laparoscopic surgery (> 45 min) Malignancy Confined to bed (> 72 hours) Immobilizing plaster cast Central venous access Age >= 75 History of VTE Family history of VTE Factor V Leiden Prothrombin [id number] Lupus anticoagulant Anticardiolipin antibodies Elevated serum homocysteine Heparin-induced thrombocytopenia Other congenital or acquired thrombophilia Stroke (< 1 month) Elective arthroplasty Hip, pelvis, or leg fracture Acute spinal cord injury (< 1 month) Prophylaxis Regimen Total Risk Factor Score Risk Level Prophylaxis Regimen 0-1 Low Early ambulation 2 Moderate Order ONE of the following: *Sequential Compression Device (SCD) *Heparin 5000 units SQ BID 3-4 Higher Order ONE of the following medications: *Heparin 5000 units SQ TID *Enoxaparin/Lovenox 40 mg SQ daily (WT < 150 kg, CrCl > 30 mL/min) *Enoxaparin/Lovenox 30 mg SQ daily (WT < 150 kg, CrCl > 10-29 mL/min) *Enoxaparin/Lovenox 30 mg SQ BID (WT < 150 kg, CrCl > 30 mL/min) AND/OR *Sequential Compression Device (SCD) 5 or more Highest Order ONE of the following medications: *Heparin 5000 units SQ TID (Preferred with Epidurals) *Enoxaparin/Lovenox 40 mg SQ daily (WT < 150 kg, CrCl > 30 mL/min) *Enoxaparin/Lovenox 30 mg SQ daily (WT < 150 kg, CrCl > 10-29 mL/min) *Enoxaparin/Lovenox 30 mg SQ BID (WT < 150 kg, CrCl > 30 mL/min) AND *Sequential Compression Device (SCD) Assessment and Plan Assessment and Plan Neuro/Psych: 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 CT angiogram of the brain revealed a chronically occluded left internal carotid artery with appropriate collateralization. Keep SPB 110-[address] in a.m. NSRG consultation - Dr. Johns Continue home medications. Previously on pregabalin and carbamazepine and tramadol Acetaminophen 650 mg by tube every 6 hours. Fever CV: Hypertensive emergency History of dyslipidemia Currently on nicardipine drip with as needed labetalol to keep systolic blood pressure between 110 140 Arterial line will be placed Currently on normal saline at 84 cc an hour Unknown home medication Check 2D echocardiogram and lipid panel Resp: Acute respiratory failure secondary to altered mental status COPD? No history of tobaccoism [facility] / Ventilator bundle Albuterol/ipratropium aerosols every 6 hours with albuterol aerosols every 2 hours as needed dyspnea Spontaneous breathing trials when clinically indicated Follow-up on postintubation ABG/chest x-ray GI: N.p.o. NGT to LIWS Pantoprazole for GI prophylaxis Docusate sodium/senna 1 tablet twice daily for bowel regimen : George catheter for accurate I's and O's in a critically ill patient Endo: History of hypothyroidism Sliding scale insulin with Accu-Cheks to maintain euglycemia/medium regimen of Novulin R Accu-Cheks every 6 hours Check TSH. Previously on levothyroxine 25 mcg daily. Obtain home medications prior to initiation Renal: Monitor urine output Accurate I's and O's Follow-up follow up on BMP in AM Heme: Leukocytosis Likely leukemoid type stress related. Recheck CBC in a.m. Coags within normal limits ID: Monitor for infection MSK: PT evaluate and treat FEN: Replace electrolytes as clinically indicated per ICU electrolyte protocol Access -Utilize peripheral IV. Central line if indicated Prophylaxis -GI -pantoprazole -DVT -SCD/no pharmacologic prophylaxis with acute intracerebral hemorrhage until okayed with neurosurgery Critical Care: The total critical care time was 35 minutes. Time to perform other separately billable procedures was not included in the critical care time. Code Status Full code Discussed Condition With Dr. Zhao/ED physician. Son. Dr. Johns/neurosurgery. Care plan discussed and all questions answered. Problem Qualifiers (1) Acute respiratory failure: Qualified Codes: J96.00 - Acute respiratory failure, unspecified whether with hypoxia or hypercapnia (2) Hypothyroidism: Qualified Codes: E03.9 - Hypothyroidism, unspecified (3) Leukocytosis: Qualified Codes: D72.829 - Elevated white blood cell count, unspecified Audi Frederick MD Jan 23, 2018 20:16
[2018-01-23] MEDS: RESP: ALBUTEROL 2.5 MG/IPRATROPIUM 0.5 MG NEB (SCH) INH (20:25)
[2018-01-23] MEDS ORDERED: fentaNYL DRIP 250 ML ONE (20:43)
[2018-01-23] MEDS ORDERED: MIDAZOLAM 100 MG/100 ML INJ 100 ML ONE (20:43)
[2018-01-23] MEDS ORDERED: POTASSIUM PHOSPHATE INJ 30 MMOL in SODIUM CHLOR 0.9% 250 ML INJ 250 ML IV PRN (20:45)
[2018-01-23] MEDS ORDERED: POTASSIUM CHLORIDE 25 MEQ EFFERVESCENT TAB PO PRN (20:45)
[2018-01-23] MEDS ORDERED: POTASSIUM CHLOR 20 MEQ PREMIX 100 ML IV PRN (20:45)
[2018-01-23] MEDS ORDERED: MAGNESIUM OXIDE 400 MG TAB PO PRN (20:45)
[2018-01-23] MEDS ORDERED: POTASSIUM CHLOR 40 MEQ PREMIX 100 ML IV PRN ×2 (20:45)
[2018-01-23] MEDS ORDERED: MAGNESIUM SULFATE INJ 2 GM in SODIUM CHLORIDE 0.9% INJ 96 ML IV PRN (20:45)
[2018-01-23] MEDS ORDERED: MAGNESIUM SULFATE INJ 4 GM in SODIUM CHLORIDE 0.9% INJ 92 ML IV PRN (20:45)
[2018-01-23] MEDS ORDERED: POTASSIUM PHOSPHATE MONOBASIC 500 MG TAB PO PRN (20:45)
[2018-01-23] MEDS ORDERED: POTASSIUM PHOSPHATE MONOBASIC 500 MG TAB PO/TUBE PRN (20:45)
[2018-01-23] MEDS ORDERED: SODIUM PHOSPHATE INJ 30 MMOL in SODIUM CHLOR 0.9% 250 ML INJ 240 ML IV PRN (20:45)
--- NOTE | 2018-01-23 20:49 | RADRPT ---
EXAM DATE/TIME: 01/23/2018 20:19 [facility] COMPARISON: CT ABDOMEN & PELVIS W CONTRAST, November 03, 2015, 12:20. INDICATIONS : Evaluate oral gastric tube MEDICAL HISTORY : None. SURGICAL HISTORY : None. ENCOUNTER: Initial ACUITY: 1 day PAIN SCORE: 0/10 LOCATION: chest FINDINGS: The NG tube tip is in the upper stomach. Examination of the abdomen demonstrates a normal bowel gas p attern. No free air is identified. No organomegaly is evident. Surgical screws are seen in the left pelvis. Contrast is seen in the kidneys and ureters. CONCLUSION: No evidence of obstruction. NG tube tip in the proximal stomach. Brayan Marion MD on January 23, 2018 at 20:45 Board Certified Radiologist. This report was verified electronically.
[2018-01-23] MEDS: MIDAZOLAM 100 MG/100 ML INJ 100 ML IV PRN (20:50)
[2018-01-23] MEDS: PROPOFOL 1000 MG/100 ML INJ 100 ML IV PRN (20:50)
[2018-01-23] MEDS: fentaNYL DRIP 250 ML IV PRN (20:50)
[2018-01-23] MEDS: SODIUM CHLORIDE 0.9% FLUSH 10 ML FLUSH IV FLUSH SCH (21:00)
[2018-01-23] MEDS: DOCUSATE SODIUM 50 MG/SENNA 8.6 MG TAB PO SCH (21:00)
[2018-01-23] MEDS ORDERED: TRAM50TA PO (21:09)
[2018-01-23] MEDS ORDERED: TEMA15CA PO (21:09)
[2018-01-23] MEDS ORDERED: PRED2.5T PO (21:09)
[2018-01-23] MEDS ORDERED: SODIUM CHLOR 0.9% 250 ML INJ 250 ML ONE (23:40)
--- NOTE | 2018-01-23 23:52 | PD.CONS ---
History of Present Illness Service Neurosurgery Consult Requested By Emergency room-Dr. Zhao Reason for Consult Intracranial hemorrhage Primary Care Physician Shant Stringer MD Diagnoses: History of Present Illness The patient is a 77-year-old female who was found earlier this evening with slurred speech and altered mental status by her family. She was brought to the emergency room by EMS as a stroke alert. Initial blood pressure in the 170s. Systolic blood pressure has been up as high as 210. No definite seizure activity reported. No emesis. Patient intubated in the emergency room. The patient has a history of dystonia, previous brain surgery 2 in [place]. Review of Systems Unable to obtain review of systems from the patient. Her son indicates that she has had no recent medical complaints. 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 History of carotid stenosis Osteoporosis Depression Past Surgical History Brain surgery 2 Bilateral hip arthroplasty Right rotator cuff surgery Left ankle surgery Right carpal tunnel release Reported Medications Current Medications Medications (Trade) Dose Ordered Sig/Vicente Route Start Time Stop Time Status Last Admin Nicardipine HCl 25 mg/Sodium Chloride 250 ml @ 50 mls/hr TITRATE PRN IV 01/23/18 18:45 01/24/18 00:00 (D50w (Vial) Inj) 50 ml UNSCH PRN IV PUSH 01/23/18 19:45 01/25/18 04:16 (Glucagon Inj) 1 mg UNSCH PRN OTHER 01/23/18 19:45 (NovoLIN R SUPPLEMENTAL SCALE) 1 Q6HR SQ 01/24/18 00:00 (Peridex 0.12% Liq) 15 ml BID@08,20 MT 01/23/18 20:00 01/25/18 20:00 Propofol 100 ml @ 0 mls/hr TITRATE PRN IV 01/23/18 19:45 01/25/18 16:58 Midazolam HCl 100 ml @ 2 mls/hr TITRATE PRN IV 01/23/18 19:45 01/24/18 11:50 Fentanyl Citrate 250 ml @ 0 mls/hr TITRATE PRN IV 01/23/18 19:45 01/24/18 11:49 (Trandate Inj) 10 mg Q1HR PRN IV PUSH 01/23/18 20:00 01/25/18 14:04 Sodium Chloride 1,000 ml @ 84 mls/hr [id number] IV 01/23/18 20:00 01/25/18 19:40 (NS Flush) 2 ml UNSCH PRN IV FLUSH 01/23/18 20:00 (NS Flush) 2 ml BID IV FLUSH 01/23/18 21:00 01/25/18 21:00 (Tylenol) 650 mg Q6H PRN NG 01/23/18 20:00 (Protonix Inj) 40 mg DAILY IV PUSH 01/24/18 09:00 01/25/18 08:18 (Tears Naturale Opth Soln) 1 drop TID EACH EYE 01/24/18 09:00 01/25/18 18:00 (Zofran Inj) 4 mg Q6H PRN IV PUSH 01/23/18 20:00 (Duoneb Neb) 1 ampule Q6HR NEB INH 01/23/18 22:00 01/25/18 19:31 (Albuterol Neb) 2.5 mg Q2HR NEB PRN INH 01/23/18 20:00 Miscellaneous Information 1 Q361D XX 01/23/18 20:00 (Chlorhexidine 2% Cloth) 3 pack Taper DAILY@04 TOP 01/24/18 04:00 01/20/19 03:59 (Chlorhexidine 2% Cloth) 3 pack UNSCH PRN TOP 01/23/18 20:00 (Mary-Colace) 1 tab BID PO 01/23/18 21:00 01/25/18 21:00 (Milk Of Magnesia Liq) 30 ml Q12H PRN PO 01/23/18 20:00 (Senokot) 17.2 mg Q12H PRN PO 01/23/18 20:00 (Dulcolax Supp) 10 mg DAILY PRN RECTAL 01/23/18 20:00 (Lactulose Liq) 30 ml DAILY PRN PO 01/23/18 20:00 Potassium Chloride 100 ml @ 50 mls/hr Q2H PRN IV 01/23/18 20:45 Potassium Chloride 100 ml @ 50 mls/hr Q2H PRN IV 01/23/18 20:45 (K-Lyte Cl Eff) 50 meq UNSCH PRN PO 01/23/18 20:45 Potassium Chloride 100 ml @ 25 mls/hr UNSCH PRN IV 01/23/18 20:45 Potassium Chloride 100 ml @ 50 mls/hr Q2H PRN IV 01/23/18 20:45 Magnesium Sulfate 4 gm/Sodium Chloride 100 ml @ 50 mls/hr UNSCH PRN IV 01/23/18 20:45 (Mag-Ox) 800 mg UNSCH PRN PO 01/23/18 20:45 Magnesium Sulfate 2 gm/Sodium Chloride 100 ml @ 50 mls/hr UNSCH PRN IV 01/23/18 20:45 (K-Phos) 2,000 mg Q4H PRN PO 01/23/18 20:45 Sodium Phosphate 30 mmol/Sodium Chloride 250 ml @ 42 mls/hr UNSCH PRN IV 01/23/18 20:45 (K-Phos) 2,000 mg UNSCH PRN PO/TUBE 01/23/18 20:45 Potassium Phosphate 30 mmol/ Sodium Chloride 260 ml @ 42 mls/hr UNSCH PRN IV 01/23/18 20:45 Family History According to patient's son, positive stroke in the patient's mother. Social History Does not smoke cigarettes No alcohol use Physical Exam Vital Signs Vital Signs Date Time Temp Pulse Resp B/P (MAP) Pulse Ox O2 Delivery O2 Flow Rate FiO2 01/23/18 22:45 82 01/23/18 22:43 100 100 01/23/18 22:15 01/23/18 21:07 82 16 138/72 (94) 100 Ventilator 40 01/23/18 20:47 89 16 158/72 (100) 100 Ventilator 35 01/23/18 20:45 100 35 01/23/18 19:45 98.9 89 16 155/67 (96) 100 Ventilator 50 01/23/18 19:43 100 01/23/18 19:37 92 20 158/60 (92) 100 Ventilator 50 01/23/18 19:10 115 20 210/110 (143) 98 Ventilator 50 01/23/18 19:10 100 50 01/23/18 19:08 50 01/23/18 18:46 69 16 155/72 (99) 99 Room Air 01/23/18 18:45 99 Room Air 01/23/18 18:38 95 Room Air 21 01/23/18 18:33 98 21 01/23/18 18:26 68 18 148/72 (97) 99 Room Air Physical Exam GENERAL: This is a well-nourished, well-developed patient, intubated. SKIN: No rashes, ecchymoses or lesions. Cool and dry. HEAD: Atraumatic. Normocephalic. EYES: Pupils equal round and reactive. Extraocular motions intact. No scleral icterus. ENT: No facial edema or contusion NECK: No nuchal rigidity. CARDIOVASCULAR: Regular rate and rhythm without murmurs, gallops, or rubs. RESPIRATORY: Clear to auscultation. Breath sounds equal bilaterally. No wheezes , rales, or rhonchi. GASTROINTESTINAL: Abdomen soft, nondistended. No hepato-splenomegaly, or palpable masses. No guarding. MUSCULOSKELETAL: Extremities without clubbing, cyanosis, or edema. No joint effusion, or edema noted. No calf tenderness. Negative Homans sign bilaterally. NEUROLOGICAL: Intubated and sedated. Pupils are 2 mm nonreactive. Mildly disconjugate oculocephalic movements. Does not track with her eyes or focus. Mild eye opening to sternal rub. Does not follow commands Withdraws upper and lower extremities moderate to deep pain response. Lezama's response absent bilateral No ankle clonus Laboratory Laboratory Tests Test 01/23/18 18:30 01/23/18 20:00 01/23/18 20:31 01/23/18 22:30 White Blood Count 12.3 Red Blood Count 4.11 Hemoglobin 13.7 Bedside Hemoglobin 13.3 Hematocrit 39.5 Bedside Hematocrit 39.0 Mean Corpuscular Volume 96.1 Mean Corpuscular Hemoglobin 33.3 Mean Corpuscular Hemoglobin Concent 34.7 Red Cell Distribution Width 14.3 Platelet Count 256 Mean Platelet Volume 9.5 Neutrophils (%) (Auto) 52.0 Lymphocytes (%) (Auto) 36.6 Monocytes (%) (Auto) 8.1 Eosinophils (%) (Auto) 2.2 Basophils (%) (Auto) 1.1 Neutrophils # (Auto) 6.4 Lymphocytes # (Auto) 4.5 Monocytes # (Auto) 1.0 Eosinophils # (Auto) 0.3 Basophils # (Auto) 0.1 CBC Comment AUTO DIFF Differential Comment AUTO DIFF CONFIRMED Platelet Estimate NORMAL Platelet Morphology Comment NORMAL Prothrombin Time 9.9 Prothromb Time International Ratio 1.0 Activated Partial Thromboplast Time 21.4 Fibrinogen 361 Bedside Sodium 140 Bedside Potassium 3.7 Bedside Chloride 108 Bedside Blood Urea Nitrogen 22 Bedside Creatinine 0.7 Bedside Glucose 130 Total Creatine Kinase 47 Troponin I LESS THAN 0.02 Human Chorionic Gonadotropin, Quant 3 Urine Opiates Screen NEG Urine Barbiturates Screen NEG Urine Amphetamines Screen NEG Urine Benzodiazepines Screen NEG Urine Cocaine Screen NEG Urine Cannabinoids Screen NEG Blood Gas Puncture Site RT RADIAL Blood Gas Patient Temperature 98.6 Blood Gas HCO3 22 Blood Gas Base Excess -1.4 Blood Gas Oxygen Saturation 98 Arterial Blood pH 7.45 Arterial Blood Partial Pressure CO2 32 Arterial Blood Partial Pressure O2 214 Arterial Blood Oxygen Content 19.5 Arterial Blood Carboxyhemoglobin 0.8 Arterial Blood Methemoglobin 0.8 Blood Gas Hemoglobin 13.8 Oxygen Delivery Device VENTILATOR Blood Gas Ventilator Setting PRVC / AC / Blood Gas Inspired Oxygen 50 Result Diagram: 01/23/18 1830 Imaging 01/23/2018 CT scan head images are reviewed and reveal moderate cerebellar vermis extending towards the right perimesencephalic cistern and fourth ventricle. No significant overall mass-effect. No hydrocephalus. 01/23/2018 CT angiogram of the head and neck reveals complete left carotid occlusion. No aneurysm or vascular malformation noted. Assessment and Plan Assessment and Plan Spontaneous ICH cerebellar vermis. No evidence aneurysm on CTA HTN Plan: Discussed with son on ED Discussed with floral department specialist. ISC HTN control-nicardipine drip as needed Vent support F/U CT Head Henok Johns MD Jan 23, 2018 23:52
[2018-01-24] VITALS (18 sets, daily range): BP systolic 108–128; BP diastolic 56–68; PULSE 60–74; RESP 16–21; TEMP 97.6–98.6; O2SAT 100
[2018-01-24] MEDS: niCARdipine INJ 25 MG in SODIUM CHLOR 0.9% 250 ML INJ 240 ML IV PRN ×2
[2018-01-24] MEDS: SODIUM CHLOR 0.9% 1000 ML INJ 1,000 ML IV SCH ×2 (00:08→09:04)
[2018-01-24] MEDS: PROPOFOL 1000 MG/100 ML INJ 100 ML IV PRN ×4 (00:59→17:54)
[2018-01-24 01:46] LABS: BILIRUBIN, URINE NEG (NEG); BLOOD, URINE NEG (NEG); GLUCOSE,URINE NEG (NEG); KETONE, URINE TRACE mg/dL (NEG); MUCUS URINE FEW /lpf (OCC); NITRITE,URINE NEG (NEG); PH, URINE 8.5 (5.0-8.5); URINE COLOR LIGHT-YELLOW (YELLW/STRAW); URINE LEUKOCYTE ESTERASE NEG (NEG)
[2018-01-24 03:27] LABS: AUTOMATED NEUTROPHIL # 8.7 TH/MM3 (1.8-7.7); BASOPHIL # 0.1 TH/MM3 (0-0.2); BASOPHIL % 0.8 % (0.0-2.0); EOSINOPHIL % 0.4 % (0.0-4.0); HEMOGLOBIN 14.1 GM/DL (11.6-15.3); LYMPH % 11.5 % (9.0-44.0); LYMPHOCYTE # 1.2 TH/MM3 (1.0-4.8); MEAN CELL VOLUME 96.2 FL (80.0-100.0); MEAN CORPUSCULAR HEMOGLOBIN 32.4 PG (27.0-34.0); MEAN CORPUSCULAR HGB CONC 33.7 % (32.0-36.0); MEAN PLATELET VOLUME 8.2 FL (7.0-11.0); MONO % 6.2 % (0.0-8.0); MONOCYTE # 0.7 TH/MM3 (0-0.9); NEUT % 81.1 % (16.0-70.0); PLATELET COUNT 200 TH/MM3 (150-450); RED BLOOD COUNT 4.36 MIL/MM3 (4.00-5.30); RED CELL DISTRIBUTION WIDTH 14.2 % (11.6-17.2); WHITE BLOOD COUNT 10.7 TH/MM3 (4.0-11.0)
[2018-01-24 03:40] LABS: ALBUMIN 3.3 GM/DL (3.4-5.0); AST (GOT) 30 U/L (15-37); BICARBONATE 24.1 MEQ/L (21.0-32.0); BLOOD UREA NITROGEN 15 MG/DL (7-18); CALCIUM 8.3 MG/DL (8.5-10.1); CHLORIDE 109 MEQ/L (98-107); CHOLESTEROL 211 MG/DL (120-200); CREATININE 0.66 MG/DL (0.50-1.00); GLOMERULAR FILTRATION RATE 87 ML/MIN (>89); GLUCOSE,RANDOM 114 MG/DL (74-106); MAGNESIUM 2.2 MG/DL (1.5-2.5); SODIUM (NA) 141 MEQ/L (136-145)
[2018-01-24 03:49] LABS: ALKALINE PHOSPHATASE 158 U/L (45-117); ALT (GPT) 24 U/L (10-53); CHOLESTEROL/ HDL RATIO 3.45 RATIO; HDL CHOLESTEROL 61.1 MG/DL (40.0-60.0); LDL CHOLESTEROL 128 MG/DL (0-99); TOTAL BILIRUBIN ADULT 0.2 MG/DL (0.2-1.0); TOTAL PROTEIN 6.4 GM/DL (6.4-8.2); TRIGLYCERIDES 108 MG/DL (42-150)
[2018-01-24] MEDS: CHLORHEXIDINE GLUCONATE 2 % 1 PACK (2 CLOTHS) TOP SCH (04:00)
[2018-01-24] MEDS: RESP: ALBUTEROL 2.5 MG/IPRATROPIUM 0.5 MG NEB (SCH) INH ×4 (04:55→22:45)
--- NOTE | 2018-01-24 05:28 | RADRPT ---
EXAM DATE/TIME: 01/24/2018 03:27 [facility] COMPARISON: 01/23/2018. INDICATIONS : Respiratory distress. MEDICAL HISTORY : None. SURGICAL HISTORY : None. ENCOUNTER: Subsequent ACUITY: 2 days PAIN SCORE: Non-responsive. LOCATION: Bilateral chest FINDINGS: Mild consolidation of the left mid and lower lung again noted, not significantly changed. Right lung remains clear. No pneumothorax. Normal, stable heart size. Endotracheal tube tip is approximately 1.3 cm above the gordon, unchanged. Nasogastric tube courses i nto the stomach. CONCLUSION: No significant change mild patchy airspace opacities of the left mid and lower lung. Brayan Ann MD on January 24, 2018 at 5:25 Board Certified Radiologist. This report was verified electronically.
--- NOTE | 2018-01-24 05:42 | RADRPT ---
EXAM DATE/TIME: 01/24/2018 04:36 [facility] COMPARISON: CTA BRAIN W 3D RECON, January 23, 2018, 18:47. CT BRAIN W/O CONTRAST, January 23, 2018, 18:33. INDICATIONS : Follow up hemorrhage. RADIATION DOSE: 70.12 CTDIvol (mGy) ; Tabletop CT Head MEDICAL HISTORY : Cardiovascular disease. Hypercholesterolemia. Chronic obstructive pulmonary disease.GERD SURGICAL HISTORY : Appendectomy. Cholecystectomy. ENCOUNTER: Subsequent ACUITY: 1 day PAIN SCALE: Non-responsive LOCATION: cranial TECHNIQUE: Multiple contiguous axial images were obtained of the head. Using automated exposure control and adj ustment of the mA and/or kV according to patient size, radiation dose was kept as low as reasonably a chievable to obtain optimal diagnostic quality images. DICOM format image data is available electro nically for review and comparison. FINDINGS: Posterior fossa hemorrhage again noted that involves the fourth ventricle and the vermis region of th e cerebellum. The amount of blood is not significantly changed. There remains no ventricular dilatati on. No supratentorial blood. No mass, mass effect or midline shift is seen. There are apparent vascular c lips in the basal cistern and near the left lateral ventricle. CONCLUSION: No significant change posterior fossa blood as described. No supratentorial blood. No midline shift. Brayan Ann MD on January 24, 2018 at 5:37 Board Certified Radiologist. This report was verified electronically.
[2018-01-24] MEDS: INSULIN NovoLIN REGULAR SUPPLEMENTAL SCALE SQ SCH ×4 (06:00→17:07)
[2018-01-24] MEDS: DOCUSATE SODIUM 50 MG/SENNA 8.6 MG TAB PO SCH ×2 (09:05→21:00)
[2018-01-24] MEDS: SODIUM CHLORIDE 0.9% FLUSH 10 ML FLUSH IV FLUSH SCH ×2 (09:05→21:00)
[2018-01-24] MEDS: PANTOPRAZOLE SODIUM 40 MG VIAL IV PUSH SCH (09:05)
[2018-01-24] MEDS: CHLORHEXIDINE 0.12% (ORAL KIT) 15 ML CUP MT SCH ×2 (09:05→20:00)
[2018-01-24] MEDS: ARTIFICIAL TEARS OPTH SOLN 15 ML BTL EACH EYE SCH ×3 (09:05→17:07)
--- NOTE | 2018-01-24 09:34 | HHI.CCPN ---
Subjective Remarks/Hospital Course 01/23: This is a 77-year-old female. Date of admission 01/23/2018. Past medical history includes dystonia status post brain surgery 2, chronic left carotid stenosis since 2005, hypertension, sciatica, hypothyroidism, depression , dyslipidemia, IBS, peripheral neuropathy, gastroesophageal disease, COPD with no history of tobaccoism? chronic pericardial effusion?, Osteoarthritis with chronic respiratory weakness due to dystonia. She presents to [facility] as a stroke alert. She was last seen normal at 5:15 PM. Her son noticed slurred speech. EMS was called. Dysarthria and left-sided weakness was noted as well. She was hypertensive with systolic blood pressure in the 170s. She is complaining of generalized headache. Initially, awake and GCS is 15. Patient was also noticed to have a left-sided facial droop but as per the patient she has had a facial droop in the past. Patient is following commands. Headache is generalized. Patient is not on any blood thinners. But occasionally takes ibuprofen CT brain revealed midline posterior hemorrhage involving the vermis/cerebellar bleed. This involves the subdural, subarachnoid and intra-parenchymal space. CT angiogram of the brain revealed no signs of aneurysm. Chronic left internal carotid occlusion. Patient had decline in mental status/was not protecting her airway due to secretions and was emergently intubated by the ED physician using etomidate and succinylcholine. She is currently hypertensive in spontaneously moving her right upper extremity and lower extremity on the ventilator on 50 mg/ mg/min of propofol. Dr. Johns recommended systolic blood pressure between 110-140. No hypertonic saline. No seizure prophylaxis. Repeat brain CT in a.m. 01/24: Remains sedated, orally intubated on mechanical ventilation. Objective Vital Signs Date Time Temp Pulse Resp B/P (MAP) Pulse Ox O2 Delivery O2 Flow Rate FiO2 01/24/18 08:50 100 40 01/24/18 06:00 69 01/24/18 04:00 98.6 16 115/65 (82) 01/23/18 21:07 Ventilator Intake and Output 01/24/18 01/24/18 01/25/18 08:00 16:00 00:00 Intake Total 100 ml Output Total 1150 ml Balance -1050 ml Result Diagram: 01/24/18 0314 01/24/18 0314 Other Results Laboratory Tests Test 01/23/18 20:31 Blood Gas Puncture Site RT RADIAL Blood Gas Patient Temperature 98.6 Blood Gas HCO3 22 mmol/L (22-26) Blood Gas Base Excess -1.4 mmol/L (-2-2) Blood Gas Oxygen Saturation 98 % (90-100) Arterial Blood pH 7.45 (7.380-7.420) Arterial Blood Partial Pressure CO2 32 mmHg (38-42) Arterial Blood Partial Pressure O2 214 mmHG (61-120) Arterial Blood Oxygen Content 19.5 Vol % (12.0-20.0) Arterial Blood Carboxyhemoglobin 0.8 % (0-4) Arterial Blood Methemoglobin 0.8 % (0-2) Blood Gas Hemoglobin 13.8 G/DL (12.0-16.0) Oxygen Delivery Device VENTILATOR Blood Gas Ventilator Setting PRVC / AC / Blood Gas Inspired Oxygen 50 % Imaging Last Impressions Head CTA 01/23/18 1827 Signed Impressions: Service Date/Time: Tuesday, January 23, 2018 18:47 - CONCLUSION: Occlusion of the left internal carotid artery. An aneurysm is not seen. Brayan Marion MD Head CT 01/23/18 0000 Signed Impressions: Service Date/Time: Tuesday, January 23, 2018 18:33 - CONCLUSION: Vermian Hemorrhage midline posterior fossa as described above without blood in the fourth ventricle. This could be hemorrhagic stroke. Vascular bleed is another consideration. CTA is pending. Juan Melchor MD FACR Objective Remarks GENERAL: 77-year-old female currently orotracheally intubated SKIN: Warm and dry. No rash HEAD: Atraumatic. Normocephalic. EYES: Pupils equal and round about 3 mm bilaterally and reactive. No scleral icterus. No injection or drainage. ENT: No nasal bleeding or discharge. Mucous membranes pink and moist. NECK: Trachea midline. No JVD. CARDIOVASCULAR: Regular rate and rhythm. S1, S2 no S4. Without murmurs, clicks gallops or rubs RESPIRATORY: No accessory muscle use. Clear to auscultation. Breath sounds equal bilaterally. GASTROINTESTINAL: Abdomen soft, non-tender, nondistended. Hypoactive bowel sounds are appreciated MUSCULOSKELETAL: Extremities without significant peripheral edema. No obvious deformities. NEUROLOGICAL: Sedated, orally intubated on mechanical ventilation. Arouses off sedation. Strength is 5 out of 5 right upper extremity. 3 out of 5 left upper lower extremity. Prior to admission positive for aphasia/dysarthria. 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 CT angiogram of the brain revealed a chronically occluded left internal carotid artery with appropriate collateralization. Keep SPB 110-[address] in a.m. NSRG consultation - Dr. Johns Continue home medications. Previously on pregabalin and carbamazepine and tramadol Acetaminophen 650 mg by tube every 6 hours. Fever CV: Hypertensive emergency History of dyslipidemia nicardipine drip, with as needed labetalol to keep systolic blood pressure between 110 140 Currently on normal saline at 84 cc an hour Unknown home medication Check 2D echocardiogram and lipid panel Resp: Acute respiratory failure secondary to altered mental status COPD? No history of tobaccoism [facility] 16/ Ventilator bundle Albuterol/ipratropium aerosols every 6 hours with albuterol aerosols every 2 hours as needed dyspnea Spontaneous breathing trials when clinically indicated GI: Start tube feeds and advance to goal as tolerated if okay with neurosurgery Pantoprazole for GI prophylaxis Docusate sodium/senna 1 tablet twice daily for bowel regimen : George catheter for accurate I's and O's in a critically ill patient Endo: History of hypothyroidism Sliding scale insulin with Accu-Cheks to maintain euglycemia/medium regimen of Novulin R Accu-Cheks every 6 hours Check TSH. Previously on levothyroxine 25 mcg daily. Obtain home medications prior to initiation Renal: Strict intake output, monitor and replete electrolytes, follow BUN/creatinine Heme: Leukocytosis Likely leukemoid type stress related. Follow CBC. Coags within normal limits ID: Monitor for infection MSK: PT evaluate and treat FEN: Replace electrolytes as clinically indicated per ICU electrolyte protocol Access -Utilize peripheral IV. Central line if indicated Prophylaxis -GI -pantoprazole -DVT -SCD/no pharmacologic prophylaxis with acute intracerebral hemorrhage until okayed with neurosurgery Critical Care: The total critical care time was 35 minutes. Time to perform other separately billable procedures was not included in the critical care time. Robert Gibson MD Jan 24, 2018 09:34
[2018-01-24] MEDS: DEXTROSE 50% IN WATER 50 ML VIAL(D50) IV PUSH PRN (11:31)
--- NOTE | 2018-01-24 11:44 | HHI.NSPN ---
(Walter San) History Chief Complaint: Unable to obtain due to patient's clinical condition. (Walter San) Interval History 01/23: Patient admitted with midline posterior haemorrhage involving the vermis/ cerebellar subdural, subarachnoid & intraparenchymal spaces. No aneurysm. Neurosurgery consulted and evaluated patient. No indication for neurosurgical intervention. 01/24: The patient is intubated and mechanically ventilated. She is sedated with propofol and midazolam. She did partially open the right eye to voice and weakly followed commands with all extremities. A repeat CT brain this morning demonstrated a stable haemorrhage. Nursing does report that the patient's propofol was increased this morning due to agitation. (Waletr San) System Review Comments Unable to obtain due to patient's clinical condition. (Walter San) Exam Results 01/22/18 01/22/18 01/23/18 01/23/18 01/24/18 01/24/18 06:00 18:00 06:00 18:00 06:00 18:00 Intake Total 350 ml Output Total 2250 ml Balance -1900 ml Intake IV Total 350 ml Output Urine Total 2150 ml Stool Total 0 ml Gastric Drainage Total 0 ml Emesis 100 ml # Bowel Movements 0 Vital Signs Date Time Temp Pulse Resp B/P (MAP) Pulse Ox O2 Delivery O2 Flow Rate FiO2 01/24/18 10:00 68 01/24/18 08:50 100 40 01/24/18 08:00 60 01/24/18 08:00 97.6 60 16 108/59 (75) 100 01/24/18 08:00 40 01/24/18 07:00 100 Mechanical Ventilator 01/24/18 06:00 69 01/24/18 06:00 40 01/24/18 04:55 100 40 01/24/18 04:00 50 01/24/18 04:00 98.6 65 16 115/65 (82) 100 01/24/18 04:00 65 01/24/18 02:00 65 01/24/18 01:01 100 50 01/24/18 00:00 100 01/24/18 00:00 97.6 74 16 128/60 (82) 100 01/24/18 00:00 74 01/24/18 00:00 74 124/58 01/23/18 22:45 82 01/23/18 22:45 100 01/23/18 22:45 82 01/23/18 22:43 100 100 01/23/18 22:15 01/23/18 21:07 82 16 138/72 (94) 100 Ventilator 40 01/23/18 20:47 89 16 158/72 (100) 100 Ventilator 35 01/23/18 20:45 100 35 01/23/18 19:45 98.9 89 16 155/67 (96) 100 Ventilator 50 01/23/18 19:43 100 01/23/18 19:37 92 20 158/60 (92) 100 Ventilator 50 01/23/18 19:10 115 20 210/110 (143) 98 Ventilator 50 01/23/18 19:10 100 50 01/23/18 19:08 50 01/23/18 18:46 69 16 155/72 (99) 99 Room Air 01/23/18 18:45 99 Room Air 01/23/18 18:38 95 Room Air 21 01/23/18 18:33 98 21 01/23/18 18:26 68 18 148/72 (97) 99 Room Air (Walter San) Physical Examination GENERAL: The patient is drowsy when seen. She is intubated & mechanically ventilated. She is sedated w/propofol 50 mcg/kg/min and midazolam 3 mg/hr infusing. She has fentanyl 90 mcg/hr infusing for pain control. She is in no apparent distress. HEENT: Normocephalic, atraumatic. PERRLA 2 mm brisk. Orally intubated. OGT. MUSCULOSKELETAL: She moves all extremities to command although weakly. No evident clubbing or deformity. NEUROLOGICAL: Drowsy, sedated w/propofol & midazolam. Partial right eye opening to voice. Nonverbal, intubated. Follows simple commands & weakly moves all extremities. (Walter San) Lab, Micro, Other Results Recent Impressions Head CT 01/24/18 0600 Signed Impressions: Service Date/Time: Wednesday, January 24, 2018 04:36 - CONCLUSION: No significant change posterior fossa blood as described. No supratentorial blood. No midline shift. Brayan Ann MD Chest X-Ray 01/24/18 0000 Signed Impressions: Service Date/Time: Wednesday, January 24, 2018 03:27 - CONCLUSION: No significant change mild patchy airspace opacities of the left mid and lower lung. Brayan Ann MD Neck CTA 01/23/18 1933 Signed Impressions: Service Date/Time: Tuesday, January 23, 2018 18:47 - CONCLUSION: Occlusion of the left internal carotid artery. Brayan Marion MD Head CTA 01/23/18 1827 Signed Impressions: Service Date/Time: Tuesday, January 23, 2018 18:47 - CONCLUSION: Occlusion of the left internal carotid artery. An aneurysm is not seen. Brayan Marion MD Head CT 01/23/18 0000 Signed Impressions: Service Date/Time: Tuesday, January 23, 2018 18:33 - CONCLUSION: Vermian Hemorrhage midline posterior fossa as described above without blood in the fourth ventricle. This could be hemorrhagic stroke. Vascular bleed is another consideration. CTA is pending. Juan Melchor MD FACR Chest X-Ray 01/23/18 0000 Signed Impressions: Service Date/Time: Tuesday, January 23, 2018 19:17 - CONCLUSION: ET tube 1 cm from the gordon. Brayan Marion MD Abdomen X-Ray 01/23/18 0000 Signed Impressions: Service Date/Time: Tuesday, January 23, 2018 20:19 - CONCLUSION: No evidence of obstruction. NG tube tip in the proximal stomach. Brayan Marion MD Laboratory Tests Test 01/23/18 18:30 01/23/18 20:00 01/23/18 20:31 01/23/18 22:30 White Blood Count 12.3 TH/MM3 Red Blood Count 4.11 MIL/MM3 Hemoglobin 13.7 GM/DL Bedside Hemoglobin 13.3 G/DL Hematocrit 39.5 % Bedside Hematocrit 39.0 % Mean Corpuscular Volume 96.1 FL Mean Corpuscular Hemoglobin 33.3 PG Mean Corpuscular Hemoglobin Concent 34.7 % Red Cell Distribution Width 14.3 % Platelet Count 256 TH/MM3 Mean Platelet Volume 9.5 FL Neutrophils (%) (Auto) 52.0 % Lymphocytes (%) (Auto) 36.6 % Monocytes (%) (Auto) 8.1 % Eosinophils (%) (Auto) 2.2 % Basophils (%) (Auto) 1.1 % Neutrophils # (Auto) 6.4 TH/MM3 Lymphocytes # (Auto) 4.5 TH/MM3 Monocytes # (Auto) 1.0 TH/MM3 Eosinophils # (Auto) 0.3 TH/MM3 Basophils # (Auto) 0.1 TH/MM3 CBC Comment AUTO DIFF Differential Comment AUTO DIFF CONFIRMED Platelet Estimate NORMAL Platelet Morphology Comment NORMAL Prothrombin Time 9.9 SEC Prothromb Time International Ratio 1.0 RATIO Activated Partial Thromboplast Time 21.4 SEC Fibrinogen 361 mg/dL Bedside Sodium 140 MMOL/L Bedside Potassium 3.7 MMOL/L Bedside Chloride 108 MMOL/L Bedside Blood Urea Nitrogen 22 MG/DL Bedside Creatinine 0.7 MG/DL Bedside Glucose 130 MG/DL Total Creatine Kinase 47 U/L Troponin I LESS THAN 0.02 NG/ML Human Chorionic Gonadotropin, Quant 3 MIU/ML Urine Color LIGHT-YELLOW Urine Turbidity CLEAR Urine pH 8.5 Urine Specific [place] 1.047 Urine Protein 30 mg/dL Urine Glucose (UA) NEG mg/dL Urine Ketones TRACE mg/dL Urine Occult Blood NEG Urine Nitrite NEG Urine Bilirubin NEG Urine Urobilinogen LESS THAN 2.0 MG/DL Urine Leukocyte Esterase NEG Urine RBC 12 /hpf Urine WBC LESS THAN 1 /hpf Urine Mucus FEW /lpf Microscopic Urinalysis Comment CULT NOT INDICATED Urine Opiates Screen NEG Urine Barbiturates Screen NEG Urine Amphetamines Screen NEG Urine Benzodiazepines Screen NEG Urine Cocaine Screen NEG Urine Cannabinoids Screen NEG Blood Gas Puncture Site RT RADIAL Blood Gas Patient Temperature 98.6 Blood Gas HCO3 22 mmol/L Blood Gas Base Excess -1.4 mmol/L Blood Gas Oxygen Saturation 98 % Arterial Blood pH 7.45 Arterial Blood Partial Pressure CO2 32 mmHg Arterial Blood Partial Pressure O2 214 mmHG Arterial Blood Oxygen Content 19.5 Vol % Arterial Blood Carboxyhemoglobin 0.8 % Arterial Blood Methemoglobin 0.8 % Blood Gas Hemoglobin 13.8 G/DL Oxygen Delivery Device VENTILATOR Blood Gas Ventilator Setting PRVC / AC / Blood Gas Inspired Oxygen 50 % Nasal Screen MRSA (PCR) MRSA NOT DETECTED Test 01/24/18 03:14 White Blood Count 10.7 TH/MM3 Red Blood Count 4.36 MIL/MM3 Hemoglobin 14.1 GM/DL Hematocrit 42.0 % Mean Corpuscular Volume 96.2 FL Mean Corpuscular Hemoglobin 32.4 PG Mean Corpuscular Hemoglobin Concent 33.7 % Red Cell Distribution Width 14.2 % Platelet Count 200 TH/MM3 Mean Platelet Volume 8.2 FL Neutrophils (%) (Auto) 81.1 % Lymphocytes (%) (Auto) 11.5 % Monocytes (%) (Auto) 6.2 % Eosinophils (%) (Auto) 0.4 % Basophils (%) (Auto) 0.8 % Neutrophils # (Auto) 8.7 TH/MM3 Lymphocytes # (Auto) 1.2 TH/MM3 Monocytes # (Auto) 0.7 TH/MM3 Eosinophils # (Auto) 0.0 TH/MM3 Basophils # (Auto) 0.1 TH/MM3 CBC Comment DIFF FINAL Differential Comment Blood Urea Nitrogen 15 MG/DL Creatinine 0.66 MG/DL Random Glucose 114 MG/DL Total Protein 6.4 GM/DL Albumin 3.3 GM/DL Calcium Level 8.3 MG/DL Phosphorus Level 3.0 MG/DL Magnesium Level 2.2 MG/DL Alkaline Phosphatase 158 U/L Aspartate Amino Transf (AST/SGOT) 30 U/L Alanine Aminotransferase (ALT/SGPT) 24 U/L Total Bilirubin 0.2 MG/DL Sodium Level 141 MEQ/L Potassium Level 4.1 MEQ/L Chloride Level 109 MEQ/L Carbon Dioxide Level 24.1 MEQ/L Anion Gap 8 MEQ/L Estimat Glomerular Filtration Rate 87 ML/MIN Lactic Acid Level 1.8 mmol/L Triglycerides Level 108 MG/DL Cholesterol Level 211 MG/DL LDL Cholesterol 128 MG/DL HDL Cholesterol 61.1 MG/DL Cholesterol/HDL Ratio 3.45 RATIO Thyroid Stimulating Hormone 3rd Gen 2.720 uIU/ML (Walter San) Medical Decision Making Impression and Plan Impression: Spontaneous ICH cerebellar vermis. No evidence aneurysm on CTA HTN The patient is sedated when seen but does open her eyes to voice. She follows commands, although weakly, with all extremities. Reviewed labs for today. Resolution of leukocytosis. Sodium 141. Mild renal insufficiency. Elevated alk phos. Lactic acid WNL. CT brain w/o significant change in posterior fossa haemorrhage, no supratentorial blood or midline shift. Per Dr Johns mild increase in cerebellum bleed. Plan: Primary & critical care management per [employer]. Neuro checks. Stat CT brain for any decline in neuro status. Maintain SBP between 110 and 150 mm Hg. Try to avoid any straining or excessive coughing. Wean ventilatory support & sedation as tolerated. Hold pharmacologic DVT prophylaxis. Mechanical DVT prophylaxis. Stress ulcer prophylaxis. (Walter San) Attending Statement The exam, history, and the medical decision-making described in the above note were completed with the assistance of the mid-level provider. I reviewed and agree with the findings presented. I attest that I had a [id number] encounter with the patient on the same day, and personally performed and documented my assessment and findings in the medical record. On my examination 01/24/2018, the patient is intubated and on propofol. She is off Cardene drip. She opens her eyes and moves all extremities with mild to moderate agitation with decreased sedation. 01/24/2018 CT scan head images are reviewed. There is slight increased hemorrhage in the anterior cerebellar vermis extending towards the right CP angle. No hydrocephalus. Stable neurologic exam. Minimal increase in posterior fossa hemorrhage compared to initial CT scan. May wean sedation cautiously, monitor systolic blood pressure closely, 110-140 systolic range goal. (Henok Johns MD) Walter San Jan 24, 2018 11:44 Henok Johns MD Jan 25, 2018 22:17
[2018-01-24] MEDS: fentaNYL DRIP 250 ML IV PRN (11:49)
[2018-01-24] MEDS: MIDAZOLAM 100 MG/100 ML INJ 100 ML IV PRN (11:50)
--- NOTE | 2018-01-24 15:38 | EKG ---
Date Performed: 01/23/2018 Time Performed: 19:31:46 PTAGE: 77 years EKG: SINUS TACHYCARDIA POSSIBLE LEFT ATRIAL ENLARGEMENT NONSPECIFIC ST & T-WAVE ABNORMALITY ABNO RMAL RHYTHM ECG PREVIOUS TRACING : 03/30/2013 09.59 Consider anterolateral ischemia. DOCTOR: Marcellus Romero Interpretating Date/Time 01/24/2018 15:28:52
--- NOTE | 2018-01-24 17:07 | MB ---
cc: Sejal Condon MD, Dalia MD DATE: 01/24/2018 REASON FOR CONSULTATION: Intracerebral hemorrhage HISTORY OF PRESENT ILLNESS: This a 77-year-old woman admitted on 01/23 with a history of brain surgery, has dystonia, chronic left carotid stenosis, hypertension, sciatica, hypothyroidism, depression, hyperlipidemia, IBS, peripheral neuropathy, reflux, COPD. She presented as a stroke alert, seen normal at 5:15 p.m., some slurred speech, left-sided weakness. She was hypertensive with a blood pressure 170 systolic, headache, GCS of 15. They noted a facial droop on the left. She is intubated on the ventilator, on Diprivan but is following commands undergoing a 2-D echo currently. She is not on any blood thinners. CT of the head did reveal midline posterior hemorrhage involving the vermis cerebellum with some subdural subarachnoid intraparenchymal space involvement. CT angiogram of the brain revealed no signs of an aneurysm. She has a chronic left internal carotid occlusion. Neurosurgery already saw the patient. PHYSICAL EXAMINATION: VITAL SIGNS: Temperature 98.5, pulse 66, respiratory rate 18, blood pressure 110/56, saturating at 100, FIO2 40%. NEUROLOGIC: She is intubated on the ventilator, following commands. Pupils are reactive. Facial asymmetry difficult to test at this time. Withdraws to pain, squeezes my hand, wiggles her toes on commands. Gait and cerebellar cannot be assessed. LABORATORY DATA: Reviewed. Cholesterol was 211 with triglycerides of 108, LDL 128, HDL 61.1. TSH 2.720. UDS was negative for any substances. Urine showed a protein of 30. Culture was not indicated. Other bottle shows MRSA was not detected. IMAGING STUDIES: She did have a CT of the head this morning that shows no change in the posterior fossa bleed. No supratentorial blood, no midline shift. She had a neck CTA with occlusion of left ICA. Head CTA without any aneurysm. It just showed the occlusion of the left ICA above the neck. IMPRESSION: A 77-year-old woman with an intracerebral hemorrhage involving the cerebellar vermis. Continue to monitor her neuro status. Avoid any antiplatelets, anticoagulants, sequential compression devices for deep vein thrombosis prophylaxis, stress ulcer prophylaxis. Maintain her blood pressure per neurosurgical recommendation. No other testing at this time neurology. Her echo has been done and that is pending report. She will need to be extubated when she meets criteria with followup evaluation by speech, occupational and physical therapy. MD BOOGIE Ramirez/ , 04:48 PM , 05:07 PM
--- NOTE | 2018-01-24 18:07 | ECHRPT ---
Indication: Hypertensive Heart Disease CONCLUSIONS The left ventricular systolic function is normal with an estimated ejection fraction in the range of 55-60%. Mild concentric left ventricular hypertrophy. Normal left ventricular size. The left atrial size is mildly dilated. Mitral annular calcification is present. Mild mitral valve regurgitation. Diffuse calcification of the aortic valve. Mild aortic valve stenosis. There is trace tricuspid valve regurgitation. The estimated pulmonary arterial pressure is 37 mmHg. BP: 115 / 65 HR: 78 Rhythm: Sinus MEASUREMENTS (Male / Female) Normal Values Technical Quality:Fair 2D ECHO LV Diastolic Diameter PLAX 4.9 cm 4.2 - 5.9 / 3.9 - 5.3 cm LV Systolic Diameter PLAX 3.4 cm IVS Diastolic Thickness 1.0 cm 0.6 - 1.0 / 0.6 - 0.9 cm LVPW Diastolic Thickness 1.0 cm 0.6 - 1.0 / 0.6 - 0.9 cm LV Relative Wall Thickness 0.4 RV Internal Dim ED PLAX 3.2 cm LVOT Diameter 1.7 cm LA Systolic Diameter LX 4.1 cm 3.0 - 4.0 / 2.7 - 3.8 cm M-MODE Aortic Root Diameter MM 2.4 cm LA Systolic Diameter MM 4.4 cm LA Ao Ratio MM 1.9 AV Cusp Separation MM 1.0 cm DOPPLER AV Peak Velocity 267.0 cm/s AV Peak Gradient 28.5 mmHg AV Mean Gradient 12.0 mmHg AV Velocity Time Integral 47.6 cm LVOT Peak Velocity 115.0 cm/s LVOT Peak Gradient 5.3 mmHg LVOT Velocity Time Integral 26.4 cm LVOT Cardiac Index 2395.1 cm/minm AV Area Cont Eq vti 1.3 cm AV Area Cont Eq pk 1.0 cm MV Area PHT 2.9 cm Mitral E Point Velocity 91.8 cm/s Mitral A Point Velocity 125.0 cm/s Mitral E to A Ratio 0.7 LV E' Lateral Velocity 10.5 cm/s Mitral E to LV E' Lateral Ratio 8.7 LV E' Septal Velocity 5.1 cm/s Mitral E to LV E' Septal Ratio 18.1 TR Peak Velocity 258.0 cm/s TR Peak Gradient 26.6 mmHg Right Atrial Pressure 10.0 mmHg Pulmonary Artery Systolic Pressu 36.6 mmHg Right Ventricular Systolic Press 36.6 mmHg FINDINGS LEFT VENTRICLE The left ventricular systolic function is normal with an estimated ejection fraction in the range of 55-60%. Mild concentric left ventricular hypertrophy. Normal left ventricular size. RIGHT VENTRICLE Normal right ventricular size and systolic function. LEFT ATRIUM The left atrial size is mildly dilated. RIGHT ATRIUM The right atrial size is normal. ATRIAL SEPTUM Normal atrial septal thickness without atrial level shunting by limited color doppler interrogation. AORTA The aortic root and proximal ascending aorta are normal in size on limited imaging. MITRAL VALVE Mitral annular calcification is present. Mild mitral valve regurgitation. AORTIC VALVE Trileaflet aortic valve. Diffuse calcification of the aortic valve. Mild aortic valve stenosis. Aortic valve area is 1.3 cm. Aortic valve mean gradient is 12 mmHg. TRICUSPID VALVE Structurally normal tricuspid valve. There is trace tricuspid valve regurgitation. The estimated pulmonary arterial pressure is 36.6 mmHg. PULMONARY VALVE No pulmonary valve regurgitation or stenosis. VESSELS The inferior vena cava is normal in size. PERICARDIUM No pericardial effusion. Steven Betancourt MD, FACC (Electronically Signed) Final Date:24 January 2018 18:06
[2018-01-25] VITALS (19 sets, daily range): BP systolic 108–167; BP diastolic 53–72; PULSE 62–94; RESP 16; TEMP 98.1–100; O2SAT 97–100
[2018-01-25] MEDS: SODIUM CHLOR 0.9% 1000 ML INJ 1,000 ML IV SCH ×3 (00:49→19:40)
[2018-01-25] MEDS: CHLORHEXIDINE GLUCONATE 2 % 1 PACK (2 CLOTHS) TOP SCH (04:00)
[2018-01-25] MEDS: RESP: ALBUTEROL 2.5 MG/IPRATROPIUM 0.5 MG NEB (SCH) INH ×4 (04:00→19:31)
[2018-01-25] MEDS: DEXTROSE 50% IN WATER 50 ML VIAL(D50) IV PUSH PRN (04:16)
[2018-01-25] MEDS: PROPOFOL 1000 MG/100 ML INJ 100 ML IV PRN ×3 (04:31→16:58)
[2018-01-25] MEDS: INSULIN NovoLIN REGULAR SUPPLEMENTAL SCALE SQ SCH ×4 (06:00→18:00)
[2018-01-25] MEDS: CHLORHEXIDINE 0.12% (ORAL KIT) 15 ML CUP MT SCH ×2 (08:09→20:00)
[2018-01-25] MEDS: ARTIFICIAL TEARS OPTH SOLN 15 ML BTL EACH EYE SCH ×3 (08:09→18:00)
[2018-01-25] MEDS: SODIUM CHLORIDE 0.9% FLUSH 10 ML FLUSH IV FLUSH SCH ×2 (08:09→21:00)
[2018-01-25] MEDS: PANTOPRAZOLE SODIUM 40 MG VIAL IV PUSH SCH (08:18)
[2018-01-25] MEDS: DOCUSATE SODIUM 50 MG/SENNA 8.6 MG TAB PO SCH ×2 (08:18→21:00)
--- NOTE | 2018-01-25 10:01 | HHI.NSPN ---
(Walter San) History Chief Complaint: Unable to obtain due to patient's clinical condition. (Walter San) Interval History 01/23: Patient admitted with midline posterior haemorrhage involving the vermis/ cerebellar subdural, subarachnoid & intraparenchymal spaces. No aneurysm. Neurosurgery consulted and evaluated patient. No indication for neurosurgical intervention. 01/24: The patient is intubated and mechanically ventilated. She is sedated with propofol and midazolam. She did partially open the right eye to voice and weakly followed commands with all extremities. A repeat CT brain this morning demonstrated a stable haemorrhage. Nursing does report that the patient's propofol was increased this morning due to agitation. 01/25: This morning the patient remains intubated and mechanically ventilated. She continues to be sedated with propofol and midazolam. With her sedation held she did follow commands with all extremities and opened her eyes. (Walter San) System Review Comments Unable to obtain due to patient's clinical condition. (Walter San) Exam Results 01/23/18 01/23/18 01/24/18 01/24/18 01/25/18 01/25/18 06:00 18:00 06:00 18:00 06:00 18:00 Intake Total 350 ml 1450 ml 1100 ml 1100 ml Output Total 2250 ml 350 ml 400 ml Balance -1900 ml 1100 ml 700 ml 1100 ml Intake IV Total 350 ml 1450 ml 1100 ml 1100 ml Output Urine Total 2150 ml 350 ml 400 ml Stool Total 0 ml Gastric Drainage Total 0 ml 0 ml Emesis 100 ml # Bowel Movements 0 0 0 Vital Signs Date Time Temp Pulse Resp B/P (MAP) Pulse Ox O2 Delivery O2 Flow Rate FiO2 01/25/18 08:37 100 40 01/25/18 08:00 40 01/25/18 08:00 98.4 64 16 108/53 (71) 100 01/25/18 08:00 89 01/25/18 07:00 100 Mechanical Ventilator 40 01/25/18 06:00 73 01/25/18 04:00 73 4/18/18 04:00 40 1818 04:00 98.6 77 16 142/60 (87) 100 1818 04:00 100 40 18/18 02:00 73 18 01:23 100 40 18/18 00:00 40 18/18 00:00 73 1818 00:00 98.7 71 16 112/56 (74) 100 18 22:46 100 40 01/24/18 22:00 73 01/24/18 20:00 73 17/18 20:00 40 18 20:00 98.4 72 16 123/58 (79) 100 01/24/18 19:00 100 Mechanical Ventilator 01/24/18 18:00 70 01/24/18 16:00 72 18 16:00 98.6 72 21 125/68 (87) 100 18 16:00 40 18 15:29 100 40 18 14:00 66 18 12:13 100 40 01/24/18 12:00 98.5 68 18 110/56 (74) 100 18 12:00 40 18 12:00 68 18 10:00 68 18 08:50 100 40 01/24/18 08:00 60 18 08:00 97.6 60 16 108/59 (75) 100 18 08:00 40 18 07:00 100 Mechanical Ventilator 01/24/18 06:00 69 18 06:00 40 18 04:55 100 40 01/24/18 04:00 50 18 04:00 98.6 65 16 115/65 (82) 100 18 04:00 65 01/24/18 02:00 65 18 01:01 100 50 01/24/18 00:00 100 18 00:00 97.6 74 16 128/60 (82) 100 01/24/18 00:00 74 18 00:00 74 124/58 16/18 22:45 82 16/18 22:45 100 4/16/18 22:45 82 18 22:43 100 100 18 22:15 18 21:07 82 16 138/72 (94) 100 Ventilator 40 18 20:47 89 16 158/72 (100) 100 Ventilator 35 18 20:45 100 35 18 19:45 98.9 89 16 155/67 (96) 100 Ventilator 50 01/23/18 19:43 100 18 19:37 92 20 158/60 (92) 100 Ventilator 50 18 19:10 115 20 210/110 (143) 98 Ventilator 50 18 19:10 100 50 01/23/18 19:08 50 18 18:46 69 16 155/72 (99) 99 Room Air 01/23/18 18:45 99 Room Air 01/23/18 18:38 95 Room Air 21 01/23/18 18:33 98 21 01/23/18 18:26 68 18 148/72 (97) 99 Room Air (Walter San) Physical Examination GENERAL: The patient is drowsy when seen. She is intubated & mechanically ventilated. She is sedated w/propofol 30 mcg/kg/min and midazolam 3 mg/hr infusing. She has fentanyl 80 mcg/hr infusing for pain control. She is in no apparent distress. Sedation held for assessment. HEENT: Normocephalic, atraumatic. PERRLA 3 mm brisk. Orally intubated. OGT. MUSCULOSKELETAL: She moves all extremities to command although weakly. No evident clubbing or deformity. NEUROLOGICAL: Drowsy, sedation held for assessment. Partial eye opening to voice. PERRLA 3 mm brisk. Nonverbal, intubated. Follows simple commands & weakly moves all extremities. (Walter San) Lab, Micro, Other Results Recent Impressions Head CT 01/24/18 0600 Signed Impressions: Service Date/Time: Wednesday, January 24, 2018 04:36 - CONCLUSION: No significant change posterior fossa blood as described. No supratentorial blood. No midline shift. Brayan Ann MD Chest X-Ray 01/24/18 0000 Signed Impressions: Service Date/Time: Wednesday, January 24, 2018 03:27 - CONCLUSION: No significant change mild patchy airspace opacities of the left mid and lower lung. Brayan Ann MD Neck CTA 01/23/18 1933 Signed Impressions: Service Date/Time: Tuesday, January 23, 2018 18:47 - CONCLUSION: Occlusion of the left internal carotid artery. Brayan Marion MD Head CTA 01/23/18 1827 Signed Impressions: Service Date/Time: Tuesday, January 23, 2018 18:47 - CONCLUSION: Occlusion of the left internal carotid artery. An aneurysm is not seen. Brayan Marion MD Head CT 01/23/18 0000 Signed Impressions: Service Date/Time: Tuesday, January 23, 2018 18:33 - CONCLUSION: Vermian Hemorrhage midline posterior fossa as described above without blood in the fourth ventricle. This could be hemorrhagic stroke. Vascular bleed is another consideration. CTA is pending. Juan Melchor MD FACR Chest X-Ray 01/23/18 0000 Signed Impressions: Service Date/Time: Tuesday, January 23, 2018 19:17 - CONCLUSION: ET tube 1 cm from the gordon. Brayan Marion MD Abdomen X-Ray 01/23/18 0000 Signed Impressions: Service Date/Time: Tuesday, January 23, 2018 20:19 - CONCLUSION: No evidence of obstruction. NG tube tip in the proximal stomach. Brayan Marion MD Laboratory Tests Test 01/23/18 18:30 01/23/18 20:00 01/23/18 20:31 01/23/18 22:30 White Blood Count 12.3 TH/MM3 Red Blood Count 4.11 MIL/MM3 Hemoglobin 13.7 GM/DL Bedside Hemoglobin 13.3 G/DL Hematocrit 39.5 % Bedside Hematocrit 39.0 % Mean Corpuscular Volume 96.1 FL Mean Corpuscular Hemoglobin 33.3 PG Mean Corpuscular Hemoglobin Concent 34.7 % Red Cell Distribution Width 14.3 % Platelet Count 256 TH/MM3 Mean Platelet Volume 9.5 FL Neutrophils (%) (Auto) 52.0 % Lymphocytes (%) (Auto) 36.6 % Monocytes (%) (Auto) 8.1 % Eosinophils (%) (Auto) 2.2 % Basophils (%) (Auto) 1.1 % Neutrophils # (Auto) 6.4 TH/MM3 Lymphocytes # (Auto) 4.5 TH/MM3 Monocytes # (Auto) 1.0 TH/MM3 Eosinophils # (Auto) 0.3 TH/MM3 Basophils # (Auto) 0.1 TH/MM3 CBC Comment AUTO DIFF Differential Comment AUTO DIFF CONFIRMED Platelet Estimate NORMAL Platelet Morphology Comment NORMAL Prothrombin Time 9.9 SEC Prothromb Time International Ratio 1.0 RATIO Activated Partial Thromboplast Time 21.4 SEC Fibrinogen 361 mg/dL Bedside Sodium 140 MMOL/L Bedside Potassium 3.7 MMOL/L Bedside Chloride 108 MMOL/L Bedside Blood Urea Nitrogen 22 MG/DL Bedside Creatinine 0.7 MG/DL Bedside Glucose 130 MG/DL Total Creatine Kinase 47 U/L Troponin I LESS THAN 0.02 NG/ML Human Chorionic Gonadotropin, Quant 3 MIU/ML Urine Color LIGHT-YELLOW Urine Turbidity CLEAR Urine pH 8.5 Urine Specific [place] 1.047 Urine Protein 30 mg/dL Urine Glucose (UA) NEG mg/dL Urine Ketones TRACE mg/dL Urine Occult Blood NEG Urine Nitrite NEG Urine Bilirubin NEG Urine Urobilinogen LESS THAN 2.0 MG/DL Urine Leukocyte Esterase NEG Urine RBC 12 /hpf Urine WBC LESS THAN 1 /hpf Urine Mucus FEW /lpf Microscopic Urinalysis Comment CULT NOT INDICATED Urine Opiates Screen NEG Urine Barbiturates Screen NEG Urine Amphetamines Screen NEG Urine Benzodiazepines Screen NEG Urine Cocaine Screen NEG Urine Cannabinoids Screen NEG Blood Gas Puncture Site RT RADIAL Blood Gas Patient Temperature 98.6 Blood Gas HCO3 22 mmol/L Blood Gas Base Excess -1.4 mmol/L Blood Gas Oxygen Saturation 98 % Arterial Blood pH 7.45 Arterial Blood Partial Pressure CO2 32 mmHg Arterial Blood Partial Pressure O2 214 mmHG Arterial Blood Oxygen Content 19.5 Vol % Arterial Blood Carboxyhemoglobin 0.8 % Arterial Blood Methemoglobin 0.8 % Blood Gas Hemoglobin 13.8 G/DL Oxygen Delivery Device VENTILATOR Blood Gas Ventilator Setting PRVC / AC / Blood Gas Inspired Oxygen 50 % Nasal Screen MRSA (PCR) MRSA NOT DETECTED Test 01/24/18 03:14 White Blood Count 10.7 TH/MM3 Red Blood Count 4.36 MIL/MM3 Hemoglobin 14.1 GM/DL Hematocrit 42.0 % Mean Corpuscular Volume 96.2 FL Mean Corpuscular Hemoglobin 32.4 PG Mean Corpuscular Hemoglobin Concent 33.7 % Red Cell Distribution Width 14.2 % Platelet Count 200 TH/MM3 Mean Platelet Volume 8.2 FL Neutrophils (%) (Auto) 81.1 % Lymphocytes (%) (Auto) 11.5 % Monocytes (%) (Auto) 6.2 % Eosinophils (%) (Auto) 0.4 % Basophils (%) (Auto) 0.8 % Neutrophils # (Auto) 8.7 TH/MM3 Lymphocytes # (Auto) 1.2 TH/MM3 Monocytes # (Auto) 0.7 TH/MM3 Eosinophils # (Auto) 0.0 TH/MM3 Basophils # (Auto) 0.1 TH/MM3 CBC Comment DIFF FINAL Differential Comment Blood Urea Nitrogen 15 MG/DL Creatinine 0.66 MG/DL Random Glucose 114 MG/DL Total Protein 6.4 GM/DL Albumin 3.3 GM/DL Calcium Level 8.3 MG/DL Phosphorus Level 3.0 MG/DL Magnesium Level 2.2 MG/DL Alkaline Phosphatase 158 U/L Aspartate Amino Transf (AST/SGOT) 30 U/L Alanine Aminotransferase (ALT/SGPT) 24 U/L Total Bilirubin 0.2 MG/DL Sodium Level 141 MEQ/L Potassium Level 4.1 MEQ/L Chloride Level 109 MEQ/L Carbon Dioxide Level 24.1 MEQ/L Anion Gap 8 MEQ/L Estimat Glomerular Filtration Rate 87 ML/MIN Lactic Acid Level 1.8 mmol/L Triglycerides Level 108 MG/DL Cholesterol Level 211 MG/DL LDL Cholesterol 128 MG/DL HDL Cholesterol 61.1 MG/DL Cholesterol/HDL Ratio 3.45 RATIO Thyroid Stimulating Hormone 3rd Gen 2.720 uIU/ML (Walter San) Medical Decision Making Impression and Plan Impression: Spontaneous ICH cerebellar vermis. No evidence aneurysm on CTA HTN The patient is sedated which was held for her assessment. She opens her eyes to voice and follows commands, although weakly, with all extremities. SBP occasionally below desired range CT brain w/o significant change in posterior fossa haemorrhage, no supratentorial blood or midline shift. Per Dr Johns mild increase in cerebellum bleed. Plan: Primary & critical care management per [employer]. Neuro checks. Stat CT brain for any decline in neuro status. Maintain SBP between 110 and 150 mm Hg. Try to avoid any straining or excessive coughing. Wean ventilatory support & sedation as tolerated. Hold pharmacologic DVT prophylaxis. Mechanical DVT prophylaxis. Stress ulcer prophylaxis. (Walter San) Attending Statement The exam, history, and the medical decision-making described in the above note were completed with the assistance of the mid-level provider. I reviewed and agree with the findings presented. I attest that I had a [id number] encounter with the patient on the same day, and personally performed and documented my assessment and findings in the medical record. On examination 01/25/2018, patient remains sedated, on ventilator. She opens her eyes spontaneous and moves all extremities with moderate strength , upper extremity to command. Sodium satisfactory Continue to wean sedation and ventilator as tolerated. Continue systolic blood pressure 110-140 Follow-up CT scan head towards the end of the week depending on clinical course (Henok Johns MD) Walter San Jan 25, 2018 10:01 Henok Johns MD Jan 25, 2018 22:19
[2018-01-25 10:32] LABS: AUTOMATED NEUTROPHIL # 7.2 TH/MM3 (1.8-7.7); BASOPHIL % 0.4 % (0.0-2.0); EOSINOPHIL # 0.1 TH/MM3 (0-0.4); EOSINOPHIL % 0.7 % (0.0-4.0); HEMATOCRIT 39.3 % (35.0-46.0); HEMOGLOBIN 13.2 GM/DL (11.6-15.3); LYMPHOCYTE # 1.8 TH/MM3 (1.0-4.8); MEAN CELL VOLUME 96.3 FL (80.0-100.0); MEAN CORPUSCULAR HEMOGLOBIN 32.3 PG (27.0-34.0); MEAN CORPUSCULAR HGB CONC 33.5 % (32.0-36.0); MEAN PLATELET VOLUME 8.7 FL (7.0-11.0); MONOCYTE # 0.8 TH/MM3 (0-0.9); NEUT % 72.9 % (16.0-70.0); PLATELET COUNT 217 TH/MM3 (150-450); RED BLOOD COUNT 4.08 MIL/MM3 (4.00-5.30); WHITE BLOOD COUNT 9.9 TH/MM3 (4.0-11.0)
[2018-01-25 10:57] LABS: ALBUMIN 2.8 GM/DL (3.4-5.0); AST (GOT) 23 U/L (15-37); BLOOD UREA NITROGEN 16 MG/DL (7-18); CALCIUM 8.1 MG/DL (8.5-10.1); CHLORIDE 113 MEQ/L (98-107); CREATININE 0.64 MG/DL (0.50-1.00); GLOMERULAR FILTRATION RATE 90 ML/MIN (>89); GLUCOSE,RANDOM 76 MG/DL (74-106); SODIUM (NA) 143 MEQ/L (136-145)
[2018-01-25 11:00] LABS: ALKALINE PHOSPHATASE 137 U/L (45-117); ALT (GPT) 20 U/L (10-53); TOTAL BILIRUBIN ADULT 0.4 MG/DL (0.2-1.0); TOTAL PROTEIN 6.1 GM/DL (6.4-8.2)
[2018-01-25] MEDS: LABETALOL HCL 100 MG/20 ML VIAL IV PUSH PRN (14:04)
--- NOTE | 2018-01-25 14:55 | HHI.CCPN ---
Subjective Remarks/Hospital Course 01/23: This is a 77-year-old female. Date of admission 01/23/2018. Past medical history includes dystonia status post brain surgery 2, chronic left carotid stenosis since 2005, hypertension, sciatica, hypothyroidism, depression , dyslipidemia, IBS, peripheral neuropathy, gastroesophageal disease, COPD with no history of tobaccoism? chronic pericardial effusion?, Osteoarthritis with chronic respiratory weakness due to dystonia. She presents to [facility] as a stroke alert. She was last seen normal at 5:15 PM. Her son noticed slurred speech. EMS was called. Dysarthria and left-sided weakness was noted as well. She was hypertensive with systolic blood pressure in the 170s. She is complaining of generalized headache. Initially, awake and GCS is 15. Patient was also noticed to have a left-sided facial droop but as per the patient she has had a facial droop in the past. Patient is following commands. Headache is generalized. Patient is not on any blood thinners. But occasionally takes ibuprofen CT brain revealed midline posterior hemorrhage involving the vermis/cerebellar bleed. This involves the subdural, subarachnoid and intra-parenchymal space. CT angiogram of the brain revealed no signs of aneurysm. Chronic left internal carotid occlusion. Patient had decline in mental status/was not protecting her airway due to secretions and was emergently intubated by the ED physician using etomidate and succinylcholine. She is currently hypertensive in spontaneously moving her right upper extremity and lower extremity on the ventilator on 50 mg/ mg/min of propofol. Dr. Johns recommended systolic blood pressure between 110-140. No hypertonic saline. No seizure prophylaxis. Repeat brain CT in a.m. 01/24: Remains sedated, orally intubated on mechanical ventilation. 01/25: Remains sedated, orally intubated on mechanical ventilation. Arouses unenlightening sedation. Objective Vital Signs Date Time Temp Pulse Resp B/P (MAP) Pulse Ox O2 Delivery O2 Flow Rate FiO2 01/25/18 14:00 94 01/25/18 13:14 100 40 01/25/18 12:00 98.1 16 155/72 (99) 01/25/18 07:00 Mechanical Ventilator Intake and Output 01/25/18 01/25/18 01/25/18 07:59 15:59 23:59 Intake Total 1100 ml 1100 ml Output Total 400 ml Balance 700 ml 1100 ml Result Diagram: 01/25/18 0852 01/25/18 0852 Imaging Last Impressions Head CTA 01/23/18 1827 Signed Impressions: Service Date/Time: Tuesday, January 23, 2018 18:47 - CONCLUSION: Occlusion of the left internal carotid artery. An aneurysm is not seen. Brayan Marion MD Head CT 01/23/18 0000 Signed Impressions: Service Date/Time: Tuesday, January 23, 2018 18:33 - CONCLUSION: Vermian Hemorrhage midline posterior fossa as described above without blood in the fourth ventricle. This could be hemorrhagic stroke. Vascular bleed is another consideration. CTA is pending. Juan Melchor MD FACR Objective Remarks GENERAL: 77-year-old female currently orotracheally intubated SKIN: Warm and dry. No rash HEAD: Atraumatic. Normocephalic. EYES: Pupils equal and round about 3 mm bilaterally and reactive. No scleral icterus. No injection or drainage. ENT: No nasal bleeding or discharge. Mucous membranes pink and moist. NECK: Trachea midline. No JVD. CARDIOVASCULAR: Regular rate and rhythm. S1, S2 no S4. Without murmurs, clicks gallops or rubs RESPIRATORY: No accessory muscle use. Clear to auscultation. Breath sounds equal bilaterally. GASTROINTESTINAL: Abdomen soft, non-tender, nondistended. Hypoactive bowel sounds are appreciated MUSCULOSKELETAL: Extremities without significant peripheral edema. No obvious deformities. NEUROLOGICAL: Sedated, orally intubated on mechanical ventilation. Arouses off sedation. Strength is 5 out of 5 right upper extremity. 3 out of 5 left upper lower extremity. Prior to admission positive for aphasia/dysarthria. A/P Assessment and Plan Neuro/Psych: Posterior intracerebral hemorrhage involving the vermis/cerebellum Depression disorder NOS History of dystonia status post surgery 2 at [facility] Lumbar sciatica Right upper extremity chronic peripheral neuropathy secondary dystonia Currently on propofol midazolam and fentanyl drips for sedation/analgesia while intubated Goal of RASS -[address] brain revealed a midline posterior hemorrhage along the vermis/cerebellum which developed a subdural, subarachnoid and rectal space. CT angiogram of the brain revealed a chronically occluded left internal carotid artery with appropriate collateralization. Keep SPB 110-[address] in a.m. 01/24 with slight worsening of bleed per neurosurgery NSRG consultation - Dr. Johns Continue home medications. Previously on pregabalin and carbamazepine and tramadol Acetaminophen 650 mg by tube every 6 hours. Fever CV: Hypertensive emergency History of dyslipidemia nicardipine drip as needed, with as needed labetalol to keep systolic blood pressure between 110 140 Currently on normal saline at 84 cc an hour Unknown home medication Check 2D echocardiogram and lipid panel Resp: Acute respiratory failure secondary to altered mental status COPD? No history of tobaccoism [facility] 16/500/40 Ventilator bundle Albuterol/ipratropium aerosols every 6 hours with albuterol aerosols every 2 hours as needed dyspnea Spontaneous breathing trials to decide extubation GI: Start tube feeds and advance to goal as tolerated Pantoprazole for GI prophylaxis Docusate sodium/senna 1 tablet twice daily for bowel regimen : George catheter for accurate I's and O's in a critically ill patient Endo: History of hypothyroidism Sliding scale insulin with Accu-Cheks to maintain euglycemia/medium regimen of Novulin R Accu-Cheks every 6 hours Check TSH. Previously on levothyroxine 25 mcg daily. Obtain home medications prior to initiation Renal: Strict intake output, monitor and replete electrolytes, follow BUN/creatinine Heme: Leukocytosis Likely leukemoid type stress related. Follow CBC. Coags within normal limits ID: Monitor for infection MSK: PT evaluate and treat FEN: Replace electrolytes as clinically indicated per ICU electrolyte protocol Access -Utilize peripheral IV. Central line if indicated Prophylaxis -GI -pantoprazole -DVT -SCD/no pharmacologic prophylaxis with acute intracerebral hemorrhage until okayed with neurosurgery Critical Care: The total critical care time was 35 minutes. Time to perform other separately billable procedures was not included in the critical care time. Robert Gibson MD Jan 25, 2018 14:55
[2018-01-26] VITALS (15 sets, daily range): BP systolic 107–165; BP diastolic 55–79; PULSE 59–93; RESP 16–22; TEMP 97.7–99; O2SAT 96–100
[2018-01-26] MEDS: PROPOFOL 1000 MG/100 ML INJ 100 ML IV PRN ×2 (00:34→07:04)
[2018-01-26] MEDS: RESP: ALBUTEROL 2.5 MG/IPRATROPIUM 0.5 MG NEB (SCH) INH ×4 (03:09→20:48)
[2018-01-26] MEDS: CHLORHEXIDINE GLUCONATE 2 % 1 PACK (2 CLOTHS) TOP SCH (04:00)
[2018-01-26] MEDS: INSULIN NovoLIN REGULAR SUPPLEMENTAL SCALE SQ SCH ×4 (06:00→18:00)
[2018-01-26] MEDS: CHLORHEXIDINE 0.12% (ORAL KIT) 15 ML CUP MT SCH ×2 (08:00→20:00)
--- NOTE | 2018-01-26 08:44 | HHI.CCPN ---
Subjective Remarks/Hospital Course 01/23: This is a 77-year-old female. Date of admission 01/23/2018. Past medical history includes dystonia status post brain surgery 2, chronic left carotid stenosis since 2005, hypertension, sciatica, hypothyroidism, depression , dyslipidemia, IBS, peripheral neuropathy, gastroesophageal disease, COPD with no history of tobaccoism? chronic pericardial effusion?, Osteoarthritis with chronic respiratory weakness due to dystonia. She presents to [facility] as a stroke alert. She was last seen normal at 5:15 PM. Her son noticed slurred speech. EMS was called. Dysarthria and left-sided weakness was noted as well. She was hypertensive with systolic blood pressure in the 170s. She is complaining of generalized headache. Initially, awake and GCS is 15. Patient was also noticed to have a left-sided facial droop but as per the patient she has had a facial droop in the past. Patient is following commands. Headache is generalized. Patient is not on any blood thinners. But occasionally takes ibuprofen CT brain revealed midline posterior hemorrhage involving the vermis/cerebellar bleed. This involves the subdural, subarachnoid and intra-parenchymal space. CT angiogram of the brain revealed no signs of aneurysm. Chronic left internal carotid occlusion. Patient had decline in mental status/was not protecting her airway due to secretions and was emergently intubated by the ED physician using etomidate and succinylcholine. She is currently hypertensive in spontaneously moving her right upper extremity and lower extremity on the ventilator on 50 mg/ mg/min of propofol. Dr. Johns recommended systolic blood pressure between 110-140. No hypertonic saline. No seizure prophylaxis. Repeat brain CT in a.m. 01/24: Remains sedated, orally intubated on mechanical ventilation. 01/25: Remains sedated, orally intubated on mechanical ventilation. Arouses on lightening sedation. 01/26: Sedated, orally intubated on mechanical ventilation. Daily CPAP trials to decide extubation. Objective Vital Signs Date Time Temp Pulse Resp B/P (MAP) Pulse Ox O2 Delivery O2 Flow Rate FiO2 01/26/18 08:13 99 Ventilator 40 01/26/18 06:00 66 01/26/18 04:00 98.1 17 164/73 (103) Intake and Output 01/26/18 01/26/18 01/27/18 08:00 16:00 00:00 Intake Total 1086 ml Output Total 550 ml Balance 536 ml Result Diagram: 01/25/18 0852 01/25/18 0852 Imaging Last Impressions Head CTA 01/23/18 1827 Signed Impressions: Service Date/Time: Tuesday, January 23, 2018 18:47 - CONCLUSION: Occlusion of the left internal carotid artery. An aneurysm is not seen. Brayan Marion MD Head CT 01/23/18 0000 Signed Impressions: Service Date/Time: Tuesday, January 23, 2018 18:33 - CONCLUSION: Vermian Hemorrhage midline posterior fossa as described above without blood in the fourth ventricle. This could be hemorrhagic stroke. Vascular bleed is another consideration. CTA is pending. Juan Melchor MD FACR Objective Remarks GENERAL: 77-year-old female currently orotracheally intubated SKIN: Warm and dry. No rash HEAD: Atraumatic. Normocephalic. EYES: Pupils equal and round about 3 mm bilaterally and reactive. No scleral icterus. No injection or drainage. ENT: No nasal bleeding or discharge. Mucous membranes pink and moist. NECK: Trachea midline. No JVD. CARDIOVASCULAR: Regular rate and rhythm. S1, S2 no S4. Without murmurs, clicks gallops or rubs RESPIRATORY: No accessory muscle use. Clear to auscultation. Breath sounds equal bilaterally. GASTROINTESTINAL: Abdomen soft, non-tender, nondistended. Hypoactive bowel sounds are appreciated MUSCULOSKELETAL: Extremities without significant peripheral edema. No obvious deformities. NEUROLOGICAL: Sedated, orally intubated on mechanical ventilation. Arouses off sedation. Strength is 5 out of 5 right upper extremity. 3 out of 5 left upper and lower extremity. Prior to admission positive for aphasia/dysarthria. A/P Assessment and Plan Neuro/Psych: Posterior intracerebral hemorrhage involving the vermis/cerebellum Depression disorder NOS History of dystonia status post surgery 2 at [place] Lumbar sciatica Right upper extremity chronic peripheral neuropathy secondary dystonia Currently on propofol midazolam and fentanyl drips for sedation/analgesia while intubated. Stop Versed and fentanyl. Goal of RASS -[address] brain revealed a midline posterior hemorrhage along the vermis/cerebellum which developed a subdural, subarachnoid and rectal space. CT angiogram of the brain revealed a chronically occluded left internal carotid artery with appropriate collateralization. Keep SPB 110-[address] in a.m. 01/24 with slight worsening of bleed per neurosurgery NSRG consultation - Dr. Johns Continue home medications. Previously on pregabalin and carbamazepine and tramadol Acetaminophen 650 mg by tube every 6 hours. Fever CV: Hypertensive emergency History of dyslipidemia nicardipine drip as needed, with as needed labetalol to keep systolic blood pressure between 110 140 Currently on normal saline at 84 cc an hour Unknown home medication Check 2D echocardiogram and lipid panel Resp: Acute respiratory failure secondary to altered mental status COPD? No history of tobaccoism [facility] /10/14/39 Ventilator bundle Albuterol/ipratropium aerosols every 6 hours with albuterol aerosols every 2 hours as needed dyspnea Spontaneous breathing trials to decide extubation GI: Start tube feeds and advance to goal as tolerated Pantoprazole for GI prophylaxis Docusate sodium/senna 1 tablet twice daily for bowel regimen : George catheter for accurate I's and O's in a critically ill patient Endo: History of hypothyroidism Sliding scale insulin with Accu-Cheks to maintain euglycemia/medium regimen of Novulin R Accu-Cheks every 6 hours Check TSH. Previously on levothyroxine 25 mcg daily. Obtain home medications prior to initiation Renal: Strict intake output, monitor and replete electrolytes, follow BUN/creatinine Heme: Leukocytosis Likely leukemoid type stress related. Follow CBC. Coags within normal limits ID: Monitor for infection MSK: PT evaluate and treat FEN: Replace electrolytes as clinically indicated per ICU electrolyte protocol Access -Utilize peripheral IV. Central line if indicated Prophylaxis -GI -pantoprazole -DVT -SCD/no pharmacologic prophylaxis with acute intracerebral hemorrhage until okayed with neurosurgery Critical Care: The total critical care time was 35 minutes. Time to perform other separately billable procedures was not included in the critical care time. Robert Gibson MD Jan 26, 2018 08:44
[2018-01-26] MEDS ORDERED: PILL SPLITTER OTHER PRN (08:45)
[2018-01-26] MEDS: SODIUM CHLORIDE 0.9% FLUSH 10 ML FLUSH IV FLUSH SCH ×2 (09:00→21:00)
[2018-01-26] MEDS: DOCUSATE SODIUM 50 MG/SENNA 8.6 MG TAB PO SCH ×2 (09:14→21:00)
[2018-01-26] MEDS: PANTOPRAZOLE SODIUM 40 MG VIAL IV PUSH SCH (09:14)
[2018-01-26] MEDS: LISINOPRIL 5 MG TAB OG-TUBE SCH (09:14)
--- NOTE | 2018-01-26 09:44 | HHI.NSPN ---
(Walter San) History Chief Complaint: Unable to obtain due to patient's clinical condition. (Walter San) Interval History 01/23: Patient admitted with midline posterior haemorrhage involving the vermis/ cerebellar subdural, subarachnoid & intraparenchymal spaces. No aneurysm. Neurosurgery consulted and evaluated patient. No indication for neurosurgical intervention. 01/24: The patient is intubated and mechanically ventilated. She is sedated with propofol and midazolam. She did partially open the right eye to voice and weakly followed commands with all extremities. A repeat CT brain this morning demonstrated a stable haemorrhage. Nursing does report that the patient's propofol was increased this morning due to agitation. 01/25: This morning the patient remains intubated and mechanically ventilated. She continues to be sedated with propofol and midazolam. With her sedation held she did follow commands with all extremities and opened her eyes. 01/26: The patient's midazolam and fentanyl have been stopped since last seen. Her propofol has also been decreased. The patient partially opened her eyes to voice and followed commands with her sedation held. (Walter San) System Review Comments Unable to obtain due to patient's clinical condition. (Walter San) Exam Results 01/24/18 01/24/18 01/25/18 01/25/18 01/26/18 01/26/18 06: 18:00 06:00 18:00 06:00 18:00 Intake Total 350 ml 1450 ml 1100 ml 2313 ml 1086 ml Output Total 2250 ml 350 ml 400 ml 350 ml 550 ml Balance -1900 ml 1100 ml 700 ml 1963 ml 536 ml Intake IV Total 350 ml 1450 ml 1100 ml 2313 ml 1086 ml Output Urine Total 2150 ml 350 ml 400 ml 350 ml 550 ml Stool Total 0 ml Gastric Drainage Total 0 ml 0 ml 0 ml Emesis 100 ml # Bowel Movements 0 0 0 0 0 Vital Signs Date Time Temp Pulse Resp B/P (MAP) Pulse Ox O2 Delivery O2 Flow Rate FiO2 01/26/18 09:34 40 4/19/18 08:13 99 Ventilator 40 18 08:13 99 40 4/18 06:00 66 18 04:00 98.1 66 17 164/73 (103) 100 18 04:00 60 4/18 04:00 40 01/26/18 03:10 100 40 01/26/18 02:00 60 01/26/18 00:00 99.0 60 16 107/55 (72) 100 18 00:00 59 18 00:00 40 18/18 23:23 100 40 18/18 22:00 62 18/18 20:00 40 18 20:00 100.0 75 16 167/72 (103) 100 18 20:00 75 01/25/18 19:25 100 40 01/25/18 19:00 100 Mechanical Ventilator 40 01/25/18 18:00 78 18 16:00 66 18 16:00 98.4 68 16 155/68 (97) 100 18 16:00 40 01/25/18 15:17 99 40 01/25/18 14:00 94 01/25/18 13:14 100 40 18 12:00 84 18 12:00 98.1 84 16 155/72 (99) 100 1818 12:00 40 01/25/18 10:00 85 18/18 08:37 100 40 18/18 08:00 40 18 08:00 98.4 64 16 108/53 (71) 100 1818 08:00 89 41818 07:00 100 Mechanical Ventilator 40 18 06:00 73 4/18/18 04:00 73 418/18 04:00 40 18/18 04:00 98.6 77 16 142/60 (87) 100 18/18 04:00 100 40 18/18 02:00 73 418/18 01:23 100 40 4/18/18 00:00 40 18/18 00:00 73 18/18 00:00 98.7 71 16 112/56 (74) 100 18 22:46 100 40 4/17/18 22:00 73 18 20:00 73 18 20:00 40 18 20:00 98.4 72 16 123/58 (79) 100 18 19:00 100 Mechanical Ventilator 01/24/18 18:00 70 18 16:00 72 18 16:00 98.6 72 21 125/68 (87) 100 18 16:00 40 18 15:29 100 40 18 14:00 66 18 12:13 100 40 18 12:00 98.5 68 18 110/56 (74) 100 01/24/18 12:00 40 18 12:00 68 18 10:00 68 18 08:50 100 40 18 08:00 60 18 08:00 97.6 60 16 108/59 (75) 100 01/24/18 08:00 40 01/24/18 07:00 100 Mechanical Ventilator 01/24/18 06:00 69 01/24/18 06:00 40 18 04:55 100 40 18 04:00 50 18 04:00 98.6 65 16 115/65 (82) 100 18 04:00 65 18 02:00 65 18 01:01 100 50 18 00:00 100 18 00:00 97.6 74 16 128/60 (82) 100 18 00:00 74 18 00:00 74 124/58 18 22:45 82 /16/18 22:45 100 16/18 22:45 82 /16/18 22:43 100 100 16/18 22:15 16/18 21:07 82 16 138/72 (94) 100 Ventilator 40 16/18 20:47 89 16 158/72 (100) 100 Ventilator 35 16/18 20:45 100 35 16/18 19:45 98.9 89 16 155/67 (96) 100 Ventilator 50 4/16/18 19:43 100 4/16/18 19:37 92 20 158/60 (92) 100 Ventilator 50 01/23/18 19:10 115 20 210/110 (143) 98 Ventilator 50 01/23/18 19:10 100 50 01/23/18 19:08 50 01/23/18 18:46 69 16 155/72 (99) 99 Room Air 01/23/18 18:45 99 Room Air 01/23/18 18:38 95 Room Air 21 01/23/18 18:33 98 21 01/23/18 18:26 68 18 148/72 (97) 99 Room Air (Walter San) Physical Examination GENERAL: The patient is drowsy when seen. She is intubated & mechanically ventilated. She is sedated w/propofol 5 mcg/kg/min. She is in no apparent distress. Sedation held for assessment. HEENT: Normocephalic, atraumatic. PERRLA 3 mm brisk. Orally intubated. OGT. MUSCULOSKELETAL: She moves all extremities to command although weakly. No evident clubbing or deformity. NEUROLOGICAL: Drowsy, sedation held for assessment. Partial eye opening to voice. PERRLA 3 mm brisk. Nonverbal, intubated. Follows simple commands & weakly moves all extremities. Was not able to give a thumbs up but appeared to try, did lift all extremities off bed and moved feet to command. (Walter San) Lab, Micro, Other Results Recent Impressions Head CT 01/24/18 0600 Signed Impressions: Service Date/Time: Wednesday, January 24, 2018 04:36 - CONCLUSION: No significant change posterior fossa blood as described. No supratentorial blood. No midline shift. Brayan Ann MD Chest X-Ray 01/24/18 0000 Signed Impressions: Service Date/Time: Wednesday, January 24, 2018 03:27 - CONCLUSION: No significant change mild patchy airspace opacities of the left mid and lower lung. Brayan Ann MD Neck CTA 01/23/18 1933 Signed Impressions: Service Date/Time: Tuesday, January 23, 2018 18:47 - CONCLUSION: Occlusion of the left internal carotid artery. Brayan Marion MD Head CTA 01/23/18 1827 Signed Impressions: Service Date/Time: Tuesday, January 23, 2018 18:47 - CONCLUSION: Occlusion of the left internal carotid artery. An aneurysm is not seen. Brayan Marion MD Laboratory Tests Test 01/23/18 18:30 01/23/18 20:00 01/23/18 20:31 01/23/18 22:30 White Blood Count 12.3 TH/MM3 Red Blood Count 4.11 MIL/MM3 Hemoglobin 13.7 GM/DL Bedside Hemoglobin 13.3 G/DL Hematocrit 39.5 % Bedside Hematocrit 39.0 % Mean Corpuscular Volume 96.1 FL Mean Corpuscular Hemoglobin 33.3 PG Mean Corpuscular Hemoglobin Concent 34.7 % Red Cell Distribution Width 14.3 % Platelet Count 256 TH/MM3 Mean Platelet Volume 9.5 FL Neutrophils (%) (Auto) 52.0 % Lymphocytes (%) (Auto) 36.6 % Monocytes (%) (Auto) 8.1 % Eosinophils (%) (Auto) 2.2 % Basophils (%) (Auto) 1.1 % Neutrophils # (Auto) 6.4 TH/MM3 Lymphocytes # (Auto) 4.5 TH/MM3 Monocytes # (Auto) 1.0 TH/MM3 Eosinophils # (Auto) 0.3 TH/MM3 Basophils # (Auto) 0.1 TH/MM3 CBC Comment AUTO DIFF Differential Comment AUTO DIFF CONFIRMED Platelet Estimate NORMAL Platelet Morphology Comment NORMAL Prothrombin Time 9.9 SEC Prothromb Time International Ratio 1.0 RATIO Activated Partial Thromboplast Time 21.4 SEC Fibrinogen 361 mg/dL Bedside Sodium 140 MMOL/L Bedside Potassium 3.7 MMOL/L Bedside Chloride 108 MMOL/L Bedside Blood Urea Nitrogen 22 MG/DL Bedside Creatinine 0.7 MG/DL Bedside Glucose 130 MG/DL Total Creatine Kinase 47 U/L Troponin I LESS THAN 0.02 NG/ML Human Chorionic Gonadotropin, Quant 3 MIU/ML Urine Color LIGHT-YELLOW Urine Turbidity CLEAR Urine pH 8.5 Urine Specific [place] 1.047 Urine Protein 30 mg/dL Urine Glucose (UA) NEG mg/dL Urine Ketones TRACE mg/dL Urine Occult Blood NEG Urine Nitrite NEG Urine Bilirubin NEG Urine Urobilinogen LESS THAN 2.0 MG/DL Urine Leukocyte Esterase NEG Urine RBC 12 /hpf Urine WBC LESS THAN 1 /hpf Urine Mucus FEW /lpf Microscopic Urinalysis Comment CULT NOT INDICATED Urine Opiates Screen NEG Urine Barbiturates Screen NEG Urine Amphetamines Screen NEG Urine Benzodiazepines Screen NEG Urine Cocaine Screen NEG Urine Cannabinoids Screen NEG Blood Gas Puncture Site RT RADIAL Blood Gas Patient Temperature 98.6 Blood Gas HCO3 22 mmol/L Blood Gas Base Excess -1.4 mmol/L Blood Gas Oxygen Saturation 98 % Arterial Blood pH 7.45 Arterial Blood Partial Pressure CO2 32 mmHg Arterial Blood Partial Pressure O2 214 mmHG Arterial Blood Oxygen Content 19.5 Vol % Arterial Blood Carboxyhemoglobin 0.8 % Arterial Blood Methemoglobin 0.8 % Blood Gas Hemoglobin 13.8 G/DL Oxygen Delivery Device VENTILATOR Blood Gas Ventilator Setting PRVC / AC / Blood Gas Inspired Oxygen 50 % Nasal Screen MRSA (PCR) MRSA NOT DETECTED Test 01/24/18 03:14 01/25/18 08:52 White Blood Count 10.7 TH/MM3 9.9 TH/MM3 Red Blood Count 4.36 MIL/MM3 4.08 MIL/MM3 Hemoglobin 14.1 GM/DL 13.2 GM/DL Hematocrit 42.0 % 39.3 % Mean Corpuscular Volume 96.2 FL 96.3 FL Mean Corpuscular Hemoglobin 32.4 PG 32.3 PG Mean Corpuscular Hemoglobin Concent 33.7 % 33.5 % Red Cell Distribution Width 14.2 % 14.0 % Platelet Count 200 TH/MM3 217 TH/MM3 Mean Platelet Volume 8.2 FL 8.7 FL Neutrophils (%) (Auto) 81.1 % 72.9 % Lymphocytes (%) (Auto) 11.5 % 18.0 % Monocytes (%) (Auto) 6.2 % 8.0 % Eosinophils (%) (Auto) 0.4 % 0.7 % Basophils (%) (Auto) 0.8 % 0.4 % Neutrophils # (Auto) 8.7 TH/MM3 7.2 TH/MM3 Lymphocytes # (Auto) 1.2 TH/MM3 1.8 TH/MM3 Monocytes # (Auto) 0.7 TH/MM3 0.8 TH/MM3 Eosinophils # (Auto) 0.0 TH/MM3 0.1 TH/MM3 Basophils # (Auto) 0.1 TH/MM3 0.0 TH/MM3 CBC Comment DIFF FINAL DIFF FINAL Differential Comment Blood Urea Nitrogen 15 MG/DL 16 MG/DL Creatinine 0.66 MG/DL 0.64 MG/DL Random Glucose 114 MG/DL 76 MG/DL Total Protein 6.4 GM/DL 6.1 GM/DL Albumin 3.3 GM/DL 2.8 GM/DL Calcium Level 8.3 MG/DL 8.1 MG/DL Phosphorus Level 3.0 MG/DL Magnesium Level 2.2 MG/DL Alkaline Phosphatase 158 U/L 137 U/L Aspartate Amino Transf (AST/SGOT) 30 U/L 23 U/L Alanine Aminotransferase (ALT/SGPT) 24 U/L 20 U/L Total Bilirubin 0.2 MG/DL 0.4 MG/DL Sodium Level 141 MEQ/L 143 MEQ/L Potassium Level 4.1 MEQ/L 3.9 MEQ/L Chloride Level 109 MEQ/L 113 MEQ/L Carbon Dioxide Level 24.1 MEQ/L 20.0 MEQ/L Anion Gap 8 MEQ/L 10 MEQ/L Estimat Glomerular Filtration Rate 87 ML/MIN 90 ML/MIN Lactic Acid Level 1.8 mmol/L Triglycerides Level 108 MG/DL Cholesterol Level 211 MG/DL LDL Cholesterol 128 MG/DL HDL Cholesterol 61.1 MG/DL Cholesterol/HDL Ratio 3.45 RATIO Thyroid Stimulating Hormone 3rd Gen 2.720 uIU/ML (Walter San) Medical Decision Making Impression and Plan Impression: Spontaneous ICH cerebellar vermis. No evidence aneurysm on CTA HTN The patient is sedated which was held for her assessment. She opens her eyes to voice and follows commands, although weakly, with all extremities. T max 100.0 yesterday evening. SBP intermittently outside desired range. CT brain w/o significant change in posterior fossa haemorrhage, no supratentorial blood or midline shift. Per Dr Johns mild increase in cerebellum bleed. Plan: Primary & critical care management per [facility]. Neuro checks. Stat CT brain for any decline in neuro status. Maintain SBP between 110 and 140 mm Hg. Try to avoid any straining or excessive coughing. Wean ventilatory support & sedation as tolerated. Hold pharmacologic DVT prophylaxis. Mechanical DVT prophylaxis. Stress ulcer prophylaxis. (Walter San) Attending Statement The exam, history, and the medical decision-making described in the above note were completed with the assistance of the mid-level provider. I reviewed and agree with the findings presented. I attest that I had a [id number] encounter with the patient on the same day, and personally performed and documented my assessment and findings in the medical record. On my examination of 01/26/2018, the patient was noted to be extubated, mild upper airway congestion. Awake, moving all extremities to command with good strength. Stable following cerebellar intracranial hemorrhage Mobilize out of bed, increase diet per speech therapy. (Henok Johns MD) Walter San Jan 26, 2018 09:44 Henok Johns MD Jan 30, 2018 17:29
[2018-01-26] MEDS: ARTIFICIAL TEARS OPTH SOLN 15 ML BTL EACH EYE SCH ×3 (10:00→18:00)
[2018-01-26] MEDS: SODIUM CHLOR 0.9% 1000 ML INJ 1,000 ML IV SCH ×2 (10:00→19:30)
[2018-01-26] MEDS: LABETALOL HCL 100 MG/20 ML VIAL IV PUSH PRN (12:00)
[2018-01-26] MEDS: RESP: ALBUTEROL 2.5 MG/3 ML NEB (PRN) INH (12:16)
[2018-01-26] MEDS: ONDANSETRON HCL 4 MG/2 ML VIAL IV PUSH PRN (21:09)
[2018-01-27] VITALS (14 sets, daily range): BP systolic 134–191; BP diastolic 58–87; PULSE 72–110; RESP 19–31; TEMP 97.8–98.4; O2SAT 93–99
[2018-01-27] MEDS: CHLORHEXIDINE GLUCONATE 2 % 1 PACK (2 CLOTHS) TOP SCH (04:00)
[2018-01-27] MEDS: RESP: ALBUTEROL 2.5 MG/IPRATROPIUM 0.5 MG NEB (SCH) INH ×4 (04:11→20:17)
[2018-01-27] MEDS: INSULIN NovoLIN REGULAR SUPPLEMENTAL SCALE SQ SCH ×4 (06:00→18:00)
[2018-01-27] MEDS: SODIUM CHLOR 0.9% 1000 ML INJ 1,000 ML IV SCH ×2 (07:25→18:04)
[2018-01-27] MEDS: CHLORHEXIDINE 0.12% (ORAL KIT) 15 ML CUP MT SCH ×2 (08:00→20:00)
[2018-01-27] MEDS: SODIUM CHLORIDE 0.9% FLUSH 10 ML FLUSH IV FLUSH SCH ×2 (08:46→21:00)
[2018-01-27] MEDS: ARTIFICIAL TEARS OPTH SOLN 15 ML BTL EACH EYE SCH ×3 (08:46→18:00)
[2018-01-27] MEDS: DOCUSATE SODIUM 50 MG/SENNA 8.6 MG TAB PO SCH ×2 (09:00→21:00)
[2018-01-27] MEDS: LISINOPRIL 5 MG TAB OG-TUBE SCH (09:00)
[2018-01-27] MEDS: PANTOPRAZOLE SODIUM 40 MG VIAL IV PUSH SCH (09:08)
--- NOTE | 2018-01-27 09:37 | HHI.NSPN ---
(Martin Sanarianna VAZQUEZ) History Chief Complaint: Dizziness (Martin Sanby HarveyLulú VAZQUEZ) Interval History 01/23: Patient admitted with midline posterior haemorrhage involving the vermis/ cerebellar subdural, subarachnoid & intraparenchymal spaces. No aneurysm. Neurosurgery consulted and evaluated patient. No indication for neurosurgical intervention. 01/24: The patient is intubated and mechanically ventilated. She is sedated with propofol and midazolam. She did partially open the right eye to voice and weakly followed commands with all extremities. A repeat CT brain this morning demonstrated a stable haemorrhage. Nursing does report that the patient's propofol was increased this morning due to agitation. 01/25: This morning the patient remains intubated and mechanically ventilated. She continues to be sedated with propofol and midazolam. With her sedation held she did follow commands with all extremities and opened her eyes. 01/26: The patient's midazolam and fentanyl have been stopped since last seen. Her propofol has also been decreased. The patient partially opened her eyes to voice and followed commands with her sedation held. 01/27: The Molecular Spectroscopist extubated the patient this morning. When seen the patient is asleep but awakens to voice. She does say she has dizziness and blurry vision. She also has pain to the neck. She denies any headache or any pain, numbness or tingling to the extremities. She states that she uses a walker for ambulation. No sensorimotor deficits noted upon examination. (Martin Sanarianna VAZQUEZ) Exam Results 01/25/18 01/25/18 01/26/18 01/26/18 01/27/18 01/27/18 06: 18:00 06:00 18:00 06:00 18:00 Intake Total 1100 ml 2313 ml 1086 ml 1100 ml Output Total 400 ml 350 ml 550 ml 1050 ml 550 ml Balance 700 ml 1963 ml 536 ml -1050 ml 550 ml Intake IV Total 1100 ml 2313 ml 1086 ml 1100 ml Output Urine Total 400 ml 350 ml 550 ml 1000 ml 550 ml Gastric Drainage Total 0 ml 0 ml 50 ml # Bowel Movements 0 0 0 0 0 Vital Signs Date Time Temp Pulse Resp B/P (MAP) Pulse Ox O2 Delivery O2 Flow Rate FiO2 01/27/18 08:00 84 01/27/18 08:00 98.4 79 28 134/66 (88) 97 01/27/18 07:00 95 Nasal Cannula 2.00 01/27/18 06:00 79 01/27/18 04:00 98.0 74 24 153/72 (99) 94 01/27/18 04:00 89 01/27/18 02:00 80 01/27/18 00:00 97.8 79 24 144/58 (86) 93 01/27/18 00:00 79 01/26/18 22:00 93 01/26/18 20:50 97 Nasal Cannula 3.00 01/26/18 20:00 81 01/26/18 20:00 97.7 81 20 154/67 (96) 96 01/26/18 19:00 97 Nasal Cannula 01/26/18 18:00 85 01/26/18 16:00 85 01/26/18 16:00 97.8 85 22 165/79 (107) 96 01/26/18 14:00 84 01/26/18 12:00 96 Nasal Cannula 4.00 01/26/18 12:00 82 01/26/18 12:00 98.4 82 18 160/71 (100) 99 01/26/18 10:00 86 01/26/18 09:34 Nasal Cannula 40 01/26/18 09:25 40 01/26/18 08:13 99 Ventilator 40 01/26/18 08:13 99 40 01/26/18 08:00 98.8 93 16 159/68 (98) 100 01/26/18 08:00 93 01/26/18 08:00 40 01/26/18 07:00 100 Mechanical Ventilator 40 01/26/18 06:00 66 01/26/18 04:00 98.1 66 17 164/73 (103) 100 01/26/18 04:00 60 01/26/18 04:00 40 01/26/18 03:10 100 40 01/26/18 02:00 60 01/26/18 00:00 99.0 60 16 107/55 (72) 100 01/26/18 00:00 59 01/26/18 00:00 40 4/18/18 23:23 100 40 1818 22:00 62 1818 20:00 40 18 20:00 100.0 75 16 167/72 (103) 100 18 20:00 75 18 19:25 100 40 18/18 19:00 100 Mechanical Ventilator 40 01/25/18 18:00 78 18 16:00 66 18 16:00 98.4 68 16 155/68 (97) 100 18 16:00 40 18 15:17 99 40 18 14:00 94 18 13:14 100 40 18 12:00 84 18 12:00 98.1 84 16 155/72 (99) 100 18 12:00 40 18 10:00 85 18 08:37 100 40 18 08:00 40 18 08:00 98.4 64 16 108/53 (71) 100 18 08:00 89 18 07:00 100 Mechanical Ventilator 40 18 06:00 73 1818 04:00 73 1818 04:00 40 18 04:00 98.6 77 16 142/60 (87) 100 18 04:00 100 40 18 02:00 73 18/18 01:23 100 40 1818 00:00 40 1818 00:00 73 1818 00:00 98.7 71 16 112/56 (74) 100 18 22:46 100 40 18 22:00 73 01/24/18 20:00 73 18 20:00 40 18 20:00 98.4 72 16 123/58 (79) 100 18 19:00 100 Mechanical Ventilator 18 18:00 70 18 16:00 72 01/24/18 16:00 98.6 72 21 125/68 (87) 100 18 16:00 40 18 15:29 100 40 4/17/18 14:00 66 01/24/18 12:13 100 40 01/24/18 12:00 98.5 68 18 110/56 (74) 100 01/24/18 12:00 40 01/24/18 12:00 68 01/24/18 10:00 68 (Walter San) Physical Examination GENERAL: The patient is asleep when seen. She awakens to voice. She does drift back to sleep & intermittently requires coaxing to interact. She is in no apparent distress. HEENT: Normocephalic, atraumatic. PERRLA 4 mm brisk. On nasal cannula. MUSCULOSKELETAL: She moves all extremities to command. No evident clubbing or deformity. NEUROLOGICAL: Asleep but awakens to voice. Oriented to person, place & time. Readily drifts back off to sleep & required intermittent coaxing to interact. Eye opening to voice. PERRLA 4 mm brisk. Speech slightly garbled, answers in 2 or 3 words. Follows simple commands. CN II through XII appear to be grossly intact. Sensation appears to be intact to light touch to all extremities. Muscle strength appears to be normal to all major flexion & extension muscle groups. (Walter San) Lab, Micro, Other Results Laboratory Tests Test 01/25/18 08:52 White Blood Count 9.9 TH/MM3 Red Blood Count 4.08 MIL/MM3 Hemoglobin 13.2 GM/DL Hematocrit 39.3 % Mean Corpuscular Volume 96.3 FL Mean Corpuscular Hemoglobin 32.3 PG Mean Corpuscular Hemoglobin Concent 33.5 % Red Cell Distribution Width 14.0 % Platelet Count 217 TH/MM3 Mean Platelet Volume 8.7 FL Neutrophils (%) (Auto) 72.9 % Lymphocytes (%) (Auto) 18.0 % Monocytes (%) (Auto) 8.0 % Eosinophils (%) (Auto) 0.7 % Basophils (%) (Auto) 0.4 % Neutrophils # (Auto) 7.2 TH/MM3 Lymphocytes # (Auto) 1.8 TH/MM3 Monocytes # (Auto) 0.8 TH/MM3 Eosinophils # (Auto) 0.1 TH/MM3 Basophils # (Auto) 0.0 TH/MM3 CBC Comment DIFF FINAL Differential Comment Blood Urea Nitrogen 16 MG/DL Creatinine 0.64 MG/DL Random Glucose 76 MG/DL Total Protein 6.1 GM/DL Albumin 2.8 GM/DL Calcium Level 8.1 MG/DL Alkaline Phosphatase 137 U/L Aspartate Amino Transf (AST/SGOT) 23 U/L Alanine Aminotransferase (ALT/SGPT) 20 U/L Total Bilirubin 0.4 MG/DL Sodium Level 143 MEQ/L Potassium Level 3.9 MEQ/L Chloride Level 113 MEQ/L Carbon Dioxide Level 20.0 MEQ/L Anion Gap 10 MEQ/L Estimat Glomerular Filtration Rate 90 ML/MIN (Walter San) Medical Decision Making Impression and Plan Impression: Spontaneous ICH cerebellar vermis. No evidence aneurysm on CTA HTN The patient is asleep but awakens to voice. She is oriented x3. She follows commands and there are no evident sensorimotor deficits. Afebrile the past 24 hrs. SBP intermittently outside desired range. CT brain w/o significant change in posterior fossa haemorrhage, no supratentorial blood or midline shift. Per Dr Johns mild increase in cerebellum bleed. Plan: Discussed the plan of care w/patient. Discussed the plan of care w/the Molecular Spectroscopist & Nursing. Primary & critical care management per Molecular Spectroscopist. Neuro checks. Stat CT brain for any decline in neuro status. Maintain SBP between 110 and 140 mm Hg. Try to avoid any straining or excessive coughing. Hold pharmacologic DVT prophylaxis. Mechanical DVT prophylaxis. Stress ulcer prophylaxis. Physical, Occupational & Speech Therapy eval & tx. Mobilise patient w/assistance. CT brain w/o contrast in AM. (Walter San) Attending Statement On my examination of 01/27/2018, the patient was still awake and alert. Moving all extremities with moderate strength to command. N.p.o. per speech therapy. May require feeding tube. Check CT scan of the head in the a.m. Out of bed with therapy (Henok Johns MD) Walter San Jan 27, 2018 09:37 Henok Johns MD Jan 30, 2018 17:32
--- NOTE | 2018-01-27 10:08 | HHI.CCPN ---
Subjective Remarks/Hospital Course 01/23: This is a 77-year-old female. Date of admission 01/23/2018. Past medical history includes dystonia status post brain surgery 2, chronic left carotid stenosis since 2005, hypertension, sciatica, hypothyroidism, depression , dyslipidemia, IBS, peripheral neuropathy, gastroesophageal disease, COPD with no history of tobaccoism? chronic pericardial effusion?, Osteoarthritis with chronic respiratory weakness due to dystonia. She presents to [facility] as a stroke alert. She was last seen normal at 5:15 PM. Her son noticed slurred speech. EMS was called. Dysarthria and left-sided weakness was noted as well. She was hypertensive with systolic blood pressure in the 170s. She is complaining of generalized headache. Initially, awake and GCS is 15. Patient was also noticed to have a left-sided facial droop but as per the patient she has had a facial droop in the past. Patient is following commands. Headache is generalized. Patient is not on any blood thinners. But occasionally takes ibuprofen CT brain revealed midline posterior hemorrhage involving the vermis/cerebellar bleed. This involves the subdural, subarachnoid and intra-parenchymal space. CT angiogram of the brain revealed no signs of aneurysm. Chronic left internal carotid occlusion. Patient had decline in mental status/was not protecting her airway due to secretions and was emergently intubated by the ED physician using etomidate and succinylcholine. She is currently hypertensive in spontaneously moving her right upper extremity and lower extremity on the ventilator on 50 mg/ mg/min of propofol. Dr. Johns recommended systolic blood pressure between 110-140. No hypertonic saline. No seizure prophylaxis. Repeat brain CT in a.m. 01/24: Remains sedated, orally intubated on mechanical ventilation. 01/25: Remains sedated, orally intubated on mechanical ventilation. Arouses on lightening sedation. 01/26: Sedated, orally intubated on mechanical ventilation. Daily CPAP trials to decide extubation. 01/27: Extubated yesterday. On nasal cannula. Speech is garbled this morning. Following commands. Refusing Dobbhoff even though she failed her swallow eval. Objective Vital Signs Date Time Temp Pulse Resp B/P (MAP) Pulse Ox O2 Delivery O2 Flow Rate FiO2 01/27/18 08:00 84 01/27/18 08:00 98.4 28 134/66 (88) 97 01/27/18 07:00 Nasal Cannula 2.00 01/26/18 09:34 40 Intake and Output 01/27/18 01/27/18 01/28/18 08:00 16:00 00:00 Intake Total 1100 ml Output Total 550 ml Balance 550 ml Result Diagram: 01/25/18 0852 01/25/18 0852 Imaging Last Impressions Head CTA 01/23/18 1827 Signed Impressions: Service Date/Time: Tuesday, January 23, 2018 18:47 - CONCLUSION: Occlusion of the left internal carotid artery. An aneurysm is not seen. Brayan Marion MD Head CT 01/23/18 0000 Signed Impressions: Service Date/Time: Tuesday, January 23, 2018 18:33 - CONCLUSION: Vermian Hemorrhage midline posterior fossa as described above without blood in the fourth ventricle. This could be hemorrhagic stroke. Vascular bleed is another consideration. CTA is pending. Juan Melchor MD FACR Objective Remarks GENERAL: 77-year-old female laying in bed not in any acute distress on nasal cannula. SKIN: Warm and dry. No rash HEAD: Atraumatic. Normocephalic. EYES: Pupils equal and round about 3 mm bilaterally and reactive. No scleral icterus. No injection or drainage. ENT: No nasal bleeding or discharge. Mucous membranes pink and moist. NECK: Trachea midline. No JVD. CARDIOVASCULAR: Regular rate and rhythm. S1, S2 no S4. Without murmurs, clicks gallops or rubs RESPIRATORY: No accessory muscle use. Clear to auscultation. Breath sounds equal bilaterally. GASTROINTESTINAL: Abdomen soft, non-tender, nondistended. Hypoactive bowel sounds are appreciated MUSCULOSKELETAL: Extremities without significant peripheral edema. No obvious deformities. NEUROLOGICAL: Awake, alert, oriented 3, speech garbled, following commands, strength is 5 out of 5 right upper extremity. 3 out of 5 left upper and lower extremity. Prior to admission positive for aphasia/dysarthria. 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 CT angiogram of the brain revealed a chronically occluded left internal carotid artery with appropriate collateralization. Keep SBP 110-[address] in a.m. 01/28 per neurosurgery NSRG consultation - Dr. Johns following Continue home medications. Previously on pregabalin and carbamazepine and tramadol Acetaminophen 650 mg by tube every 6 hours. Fever CV: Hypertensive emergency History of dyslipidemia nicardipine drip as needed, with as needed labetalol to keep systolic blood pressure between 110 140 Currently on normal saline at 84 cc an hour Unknown home medication Check 2D echocardiogram and lipid panel Resp: Acute respiratory failure secondary to altered mental status COPD? No history of tobaccoism Extubated on 01/26, tolerating nasal cannula. Albuterol/ipratropium aerosols every 6 hours with albuterol aerosols every 2 hours as needed dyspnea GI: Failed swallow evaluation. Refusing Dobbhoff placement this morning. Currently n.p.o. Pantoprazole for GI prophylaxis Docusate sodium/senna 1 tablet twice daily for bowel regimen : George catheter for accurate I's and O's in a critically ill patient Endo: History of hypothyroidism Sliding scale insulin with Accu-Cheks to maintain euglycemia/medium regimen of Novulin R Accu-Cheks every 6 hours Check TSH. Previously on levothyroxine 25 mcg daily. Obtain home medications prior to initiation Renal: Strict intake output, monitor and replete electrolytes, follow BUN/creatinine Heme: Leukocytosis Likely leukemoid type stress related. Follow CBC. Coags within normal limits ID: Monitor for infection MSK: PT evaluate and treat FEN: Replace electrolytes as clinically indicated per ICU electrolyte protocol Access -Utilize peripheral IV. Central line if indicated Prophylaxis -GI -pantoprazole -DVT -SCD/no pharmacologic prophylaxis with acute intracerebral hemorrhage until okayed with neurosurgery We will consult palliative care service to assist with deciding goals of therapy as patient is refusing Dobbhoff tube placement though she failed a swallow eval. She is high risk for aspiration. Currently full CODE STATUS. Robert Gibson MD Jan 27, 2018 10:08
[2018-01-27 11:56] LABS: AUTOMATED NEUTROPHIL # 12.2 TH/MM3 (1.8-7.7); BASOPHIL % 0.2 % (0.0-2.0); HEMATOCRIT 37.6 % (35.0-46.0); HEMOGLOBIN 12.7 GM/DL (11.6-15.3); LYMPH % 5.5 % (9.0-44.0); LYMPHOCYTE # 0.8 TH/MM3 (1.0-4.8); MEAN CELL VOLUME 96.5 FL (80.0-100.0); MEAN CORPUSCULAR HEMOGLOBIN 32.6 PG (27.0-34.0); MEAN CORPUSCULAR HGB CONC 33.8 % (32.0-36.0); MEAN PLATELET VOLUME 8.3 FL (7.0-11.0); MONO % 5.3 % (0.0-8.0); MONOCYTE # 0.7 TH/MM3 (0-0.9); PLATELET COUNT 219 TH/MM3 (150-450); RED BLOOD COUNT 3.89 MIL/MM3 (4.00-5.30); RED CELL DISTRIBUTION WIDTH 13.9 % (11.6-17.2); WHITE BLOOD COUNT 13.7 TH/MM3 (4.0-11.0)
[2018-01-27 12:16] LABS: BACTERIA, URINE RARE /hpf; BILIRUBIN, URINE NEG (NEG); BLOOD, URINE SMALL (NEG); GLUCOSE,URINE NEG (NEG); HYALINE CAST, URINE 11 /lpf (RARE); KETONE, URINE 150 mg/dL (NEG); MUCUS URINE FEW /lpf (OCC); NITRITE,URINE NEG (NEG); URINE COLOR YELLOW (YELLW/STRAW); URINE LEUKOCYTE ESTERASE NEG (NEG)
[2018-01-27 12:24] LABS: ALBUMIN 2.4 GM/DL (3.4-5.0); ALT (GPT) 21 U/L (10-53); AST (GOT) 22 U/L (15-37); BICARBONATE 19.9 MEQ/L (21.0-32.0); BLOOD UREA NITROGEN 15 MG/DL (7-18); CALCIUM 8.4 MG/DL (8.5-10.1); CHLORIDE 110 MEQ/L (98-107); CREATININE 0.54 MG/DL (0.50-1.00); GLOMERULAR FILTRATION RATE 110 ML/MIN (>89); GLUCOSE,RANDOM 103 MG/DL (74-106); SODIUM (NA) 141 MEQ/L (136-145)
[2018-01-27 12:26] LABS: ALKALINE PHOSPHATASE 115 U/L (45-117); TOTAL BILIRUBIN ADULT 0.5 MG/DL (0.2-1.0); TOTAL PROTEIN 6.2 GM/DL (6.4-8.2)
[2018-01-27] MEDS: POTASSIUM CHLOR 20 MEQ PREMIX 100 ML IV PRN ×2 (12:44→18:20)
--- NOTE | 2018-01-27 15:05 | PD.CONS ---
Consult Service Palliative Care Consult Requested By Dr. Rehan Gibson . Primary Care Physician Shant Stringer MD . Reason for Consultation a. To assist with evaluation and management of symptoms including: Dysphagia , dyspnea b. To assist medical decision maker(s) with: better understanding of current medical conditions; weighing benefits/burdens of medical treatment options; making medical treatment decisions. . HPI History of Present Illness This 77-year-old female, with a past history of idiopathic nonfamilial dystonia , COPD, hypertension, and carotid stenosis, presented on 01/23/18 as a Stroke Alert. The patient has had a stenosed left carotid artery since at least 2004 when noted on a Doppler study. A CTA of the neck in 2017 confirmed "critical stenosis" on the left. Records indicate that the patient was felt to be at too high risk for surgical intervention. While at home in the afternoon of 01/23/18 , the patient's son reportedly noticed that the patient's speech was slurred, and she was brought to the hospital. Initially, blood pressure was 170/70, GCS was 15, the NIH Stroke Score was 5, but blood pressure was as high as 210 systolic while in the ED. Other findings included: * Alert, garbled speech * White count 12.3, hemoglobin 13.7 * Sodium 140, creatinine 0.7 * CT scan with vermis cerebellum hemorrhage in the midline * Chest x-ray with no acute findings * CTA revealed occlusion of the left carotid While in CT scan, the patient vomited, and when she returned to the department she was INTUBATED for airway protection. She was subsequently admitted to the hospital. The following day, CT scan was noted to have a slight increase in hemorrhage in the anterior cerebellar vermis, chest x-ray showed mild patchy opacities on the left, an echocardiogram revealed mild aortic stenosis and an EF of 55-60%, and the patient had more agitation. Propofol had to be increased for her agitation on that day. The patient became more alert, and she was able to be extubated on 01/27/18. Her speech was improved although still significantly slurred and occasionally garbled. Speech therapy evaluated her, finding "severe oral pharyngeal dysphagia." A Dobbhoff tube was suggested, but the patient initially declined that. At the time I am seeing the patient, she denies any pain or dyspnea but indicates that she feels dizzy. The dizziness persists regardless of the position of her body or head. Palliative Care was consulted to assist with symptom management, and to enter into discussions with the patient and her family regarding her illnesses, the complications, the prognosis, and the benefits and burdens of the various medical treatment choices. . Function/Cognitive Trajectory The patient used a walker at home, but she was functioning independently and able to complete all her own ADLs. She tells me that she was still driving a car. . Review of Systems Constitutional: COMPLAINS OF: Fatigue, DENIES: Weight loss Endocrine: DENIES: Polyuria Eyes: DENIES: Eye inflammation Ears, nose, mouth, throat: DENIES: Epistaxis Respiratory: COMPLAINS OF: Cough (After trying to eat/drink), Shortness of breath (Required INTUBATION in the emergency department for airway protection) Cardiovascular: DENIES: Chest pain, Syncope Gastrointestinal: COMPLAINS OF: Vomiting (In the emergency department), DENIES : Abdominal pain Genitourinary: DENIES: Hematuria Musculoskeletal: DENIES: Joint Swelling, Back pain Integumentary: DENIES: Rash Hematologic/Lymphatics: DENIES: Bruising Immunologic/Allergic: DENIES: Urticaria Neurologic: COMPLAINS OF: Localized weakness (Had some left facial drooping on initial presentation), Seizures (Remote history of), DENIES: Headache Psychiatric: COMPLAINS OF: Depression (History of), Agitation (While intubated , resolved after extubation), DENIES: Hallucinations Past Family Social History Coded Allergies: penicillin G (Unverified Allergy, Severe, , 05/24/17) ANAPHYLAXIS Past Medical History * Idiopathic nonfamilial dystonia * Hypertension * COPD * Carotid stenosis, occluded left carotid for several years * Hyperlipidemia * History of seizures * Hypothyroidism * Irritable bowel syndrome * Depression * Osteoarthritis . Past Surgical History * Tonsillectomy many years ago * Neurosurgery for the dystonia at age 21, and then a second procedure later * Appendectomy 63 years ago * Cholecystectomy * Hand surgery * Humerus fracture/shoulder replacement * Right total hip replacement 2004 * Right carpal tunnel release 2008 * Left total hip replacement 2012 * Left ankle . Reported Medications Reported Meds & Active Scripts Active Reported Tramadol (Tramadol HCl) 50 Mg Tab 50 Mg PO Q8H PRN Temazepam 15 Mg Cap 15 Mg PO HS PRN Prednisone 2.5 Mg Tab 2.5 Mg PO DAILY . Current Medications Medications (Trade) Dose Ordered Sig/Vicente Route Start Time Stop Time Status Last Admin Nicardipine HCl 25 mg/Sodium Chloride 250 ml @ 50 mls/hr TITRATE PRN IV 01/23/18 18:45 01/24/18 00:00 (D50w (Vial) Inj) 50 ml UNSCH PRN IV PUSH 01/23/18 19:45 01/25/18 04:16 (Glucagon Inj) 1 mg UNSCH PRN OTHER 01/23/18 19:45 (NovoLIN R SUPPLEMENTAL SCALE) 1 Q6HR SQ 01/24/18 00:00 (Peridex 0.12% Liq) 15 ml BID@08,20 MT 01/23/18 20:00 01/27/18 08:00 Propofol 100 ml @ 0 mls/hr TITRATE PRN IV 01/23/18 19:45 01/26/18 07:04 (Trandate Inj) 10 mg Q1HR PRN IV PUSH 01/23/18 20:00 01/26/18 12:00 Sodium Chloride 1,000 ml @ 84 mls/hr [id number] IV 01/23/18 20:00 01/27/18 07:25 (NS Flush) 2 ml UNSCH PRN IV FLUSH 01/23/18 20:00 (NS Flush) 2 ml BID IV FLUSH 01/23/18 21:00 01/27/18 08:46 (Tylenol) 650 mg Q6H PRN NG 01/23/18 20:00 (Protonix Inj) 40 mg DAILY IV PUSH 01/24/18 09:00 01/27/18 09:08 (Tears Naturale Opth Soln) 1 drop TID EACH EYE 01/24/18 09:00 01/27/18 12:28 (Zofran Inj) 4 mg Q6H PRN IV PUSH 01/23/18 20:00 01/26/18 21:09 (Duoneb Neb) 1 ampule Q6HR NEB INH 01/23/18 22:00 01/27/18 08:48 (Albuterol Neb) 2.5 mg Q2HR NEB PRN INH 01/23/18 20:00 01/26/18 12:16 Miscellaneous Information 1 Q361D XX 01/23/18 20:00 (Chlorhexidine 2% Cloth) 3 pack Taper DAILY@04 TOP 01/24/18 04:00 01/20/19 03:59 01/27/18 04:00 (Chlorhexidine 2% Cloth) 3 pack UNSCH PRN TOP 01/23/18 20:00 (Mary-Colace) 1 tab BID PO 01/23/18 21:00 01/26/18 09:14 (Milk Of Magnesia Liq) 30 ml Q12H PRN PO 01/23/18 20:00 (Senokot) 17.2 mg Q12H PRN PO 01/23/18 20:00 (Dulcolax Supp) 10 mg DAILY PRN RECTAL 01/23/18 20:00 (Lactulose Liq) 30 ml DAILY PRN PO 01/23/18 20:00 Potassium Chloride 100 ml @ 50 mls/hr Q2H PRN IV 01/23/18 20:45 Potassium Chloride 100 ml @ 50 mls/hr Q2H PRN IV 01/23/18 20:45 (K-Lyte Cl Eff) 50 meq UNSCH PRN PO 01/23/18 20:45 Potassium Chloride 100 ml @ 25 mls/hr UNSCH PRN IV 01/23/18 20:45 Potassium Chloride 100 ml @ 50 mls/hr Q2H PRN IV 01/23/18 20:45 01/27/18 12:44 Magnesium Sulfate 4 gm/Sodium Chloride 100 ml @ 50 mls/hr UNSCH PRN IV 01/23/18 20:45 (Mag-Ox) 800 mg UNSCH PRN PO 01/23/18 20:45 Magnesium Sulfate 2 gm/Sodium Chloride 100 ml @ 50 mls/hr UNSCH PRN IV 01/23/18 20:45 (K-Phos) 2,000 mg Q4H PRN PO 01/23/18 20:45 Sodium Phosphate 30 mmol/Sodium Chloride 250 ml @ 42 mls/hr UNSCH PRN IV 01/23/18 20:45 (K-Phos) 2,000 mg UNSCH PRN PO/TUBE 01/23/18 20:45 Potassium Phosphate 30 mmol/ Sodium Chloride 260 ml @ 42 mls/hr UNSCH PRN IV 01/23/18 20:45 (Prinivil) 2.5 mg DAILY OG-TUBE 01/26/18 09:00 01/26/18 09:14 (Pill Splitter) 1 ea UNSCH PRN OTHER 01/26/18 08:45 Family History The patient's father had hypertension, and her mother had asthma and a stroke. There is also a family history of cancer and tuberculosis. . Substance Use Tobacco: None Alcohol: None Prescription med abuse: None Illicits: None . Psychosocial History The patient was originally from [facility], and moved to [place] about 33 years ago. She has been twice, . Currently, she lives with her sons to juli and Gilmar. A third son Horacio lives nearby. . Spiritual/Cultural Factors The patient is Jewish, and spirituality has been important for her. She would like a visit from the [facility]. . Living Will: Completed, but not made available Health Care Surrogate: Completed, but not made available Health Care Surrogate(s): The patient cannot recall whether she designated one son or all of them as her healthcare surrogate. The patient's son Gold also is unaware of who is designated as HCS, and the sons will try to find the advanced directives and bring them in. . Documented care wishes: The patient says she has a living will, and the patient's sons are trying to find that to bring it in. . Today's verbally stated goals: After lengthy discussion about the patient's dysphagia, the risks of aspiration , and the pros and cons of artificial nutrition and hydration, the patient has decided that she would now like to try having the nurse place the Dobbhoff and initiate artificial nutrition/hydration. When questioned about CODE STATUS, she DOES feel that she would want to be resuscitated again, and she would accept reintubation and mechanical ventilation "for some period of time," but she is not able to specify timeframe. Her main overall goal is to get back home. . Family/friends goals: The patient's son Gold was able to be reached by telephone, and he supports the patient's request and wishes at this time. He and his brother Alen will try to find in bringing to the hospital the living will and any other advanced directive paperwork. . Ethical and Legal Issues There are no ethical issues that would impact her care were decision-making at this time. The patient is alert, oriented, and has reasonable insight and judgment with respect to her medical condition and risks. I believe she has capacity for decision-making at this time. She reports that she has a living will and healthcare surrogate, but is unsure which of her sons (or all of them) are designated as HCS, so the sons are to bring the paperwork in. If there is no healthcare surrogate specified, then the decision making would fall to the majority of her 3 available and willing sons, Gold, Gilmar, and Horacio. . Physical Exam Vital Signs Date Time Temp Pulse Resp B/P (MAP) Pulse Ox O2 Delivery O2 Flow Rate FiO2 01/27/18 14:00 72 01/27/18 12:00 82 01/27/18 12:00 98.2 78 31 151/68 (95) 99 01/27/18 10:00 82 01/27/18 08:00 84 01/27/18 08:00 98.4 79 28 134/66 (88) 97 01/27/18 07:00 95 Nasal Cannula 2.00 01/27/18 06:00 79 01/27/18 04:00 98.0 74 24 153/72 (99) 94 01/27/18 04:00 89 01/27/18 02:00 80 01/27/18 00:00 97.8 79 24 144/58 (86) 93 01/27/18 00:00 79 01/26/18 22:00 93 01/26/18 20:50 97 Nasal Cannula 3.00 01/26/18 20:00 81 01/26/18 20:00 97.7 81 20 154/67 (96) 96 01/26/18 19:00 97 Nasal Cannula 01/26/18 18:00 85 01/26/18 16:00 85 01/26/18 16:00 97.8 85 22 165/79 (107) 96 Exam CONSTITUTIONAL/GENERAL: This is an elderly, weak patient, sitting in the chair in the [facility], in no apparent distress. TUBES/LINES/DRAINS: Seatbelt in place from the chair, oxygen supplementation, IV access, SCDs SKIN: No jaundice, rashes, or lesions. Ecchymoses on upper extremities. No wounds seen anteriorly. Skin temperature appropriate. Not diaphoretic. HEAD: Atraumatic. Normocephalic. EYES: Pupils reactive. Her eyes are gazing upward and toward the left most of the time. No scleral icterus. No injection or drainage. Fundi not examined. ENT: Hearing grossly normal. Nose without bleeding or purulent drainage. NECK: Trachea midline. Supple, nontender. No palpable thyroid enlargement or nodularity. CARDIOVASCULAR: Regular rate and rhythm without murmurs, gallops, or rubs. No JVD. Peripheral pulses symmetric. RESPIRATORY/CHEST: Symmetric, unlabored respirations. Clear to auscultation. Breath sounds equal bilaterally. No wheezes, rales, or rhonchi. GASTROINTESTINAL: Abdomen soft, non-tender, nondistended. No hepato-splenomegaly , or palpable masses. No guarding. Bowel sounds present. GENITOURINARY: Without palpable bladder distension. MUSCULOSKELETAL: Extremities without clubbing, cyanosis, or edema. No joint tenderness or effusion noted. No calf tenderness. No mottling or clubbing. LYMPHATICS: No palpable cervical or supraclavicular adenopathy. NEUROLOGICAL: Awake and alert. Sensory function grossly within normal limits. Easily follows commands. Cognitively sharp, oriented to date, place, person, time of day. Moves all extremities equally/bilaterally. PSYCHIATRIC: No obvious anxiety/depression. no apparent hallucinations or other psychotic thought process. . Diagnostic Tests Laboratory Laboratory Tests Test 01/25/18 08:52 01/27/18 11:15 01/27/18 11:40 White Blood Count 9.9 TH/MM3 (4.0-11.0) 13.7 TH/MM3 (4.0-11.0) Red Blood Count 4.08 MIL/MM3 (4.00-5.30) 3.89 MIL/MM3 (4.00-5.30) Hemoglobin 13.2 GM/DL (11.6-15.3) 12.7 GM/DL (11.6-15.3) Hematocrit 39.3 % (35.0-46.0) 37.6 % (35.0-46.0) Mean Corpuscular Volume 96.3 FL (80.0-100.0) 96.5 FL (80.0-100.0) Mean Corpuscular Hemoglobin 32.3 PG (27.0-34.0) 32.6 PG (27.0-34.0) Mean Corpuscular Hemoglobin Concent 33.5 % (32.0-36.0) 33.8 % (32.0-36.0) Red Cell Distribution Width 14.0 % (11.6-17.2) 13.9 % (11.6-17.2) Platelet Count 217 TH/MM3 (150-450) 219 TH/MM3 (150-450) Mean Platelet Volume 8.7 FL (7.0-11.0) 8.3 FL (7.0-11.0) Neutrophils (%) (Auto) 72.9 % (16.0-70.0) 89.0 % (16.0-70.0) Lymphocytes (%) (Auto) 18.0 % (9.0-44.0) 5.5 % (9.0-44.0) Monocytes (%) (Auto) 8.0 % (0.0-8.0) 5.3 % (0.0-8.0) Eosinophils (%) (Auto) 0.7 % (0.0-4.0) 0.0 % (0.0-4.0) Basophils (%) (Auto) 0.4 % (0.0-2.0) 0.2 % (0.0-2.0) Neutrophils # (Auto) 7.2 TH/MM3 (1.8-7.7) 12.2 TH/MM3 (1.8-7.7) Lymphocytes # (Auto) 1.8 TH/MM3 (1.0-4.8) 0.8 TH/MM3 (1.0-4.8) Monocytes # (Auto) 0.8 TH/MM3 (0-0.9) 0.7 TH/MM3 (0-0.9) Eosinophils # (Auto) 0.1 TH/MM3 (0-0.4) 0.0 TH/MM3 (0-0.4) Basophils # (Auto) 0.0 TH/MM3 (0-0.2) 0.0 TH/MM3 (0-0.2) CBC Comment DIFF FINAL DIFF FINAL Differential Comment Blood Urea Nitrogen 16 MG/DL (7-18) 15 MG/DL (7-18) Creatinine 0.64 MG/DL (0.50-1.00) 0.54 MG/DL (0.50-1.00) Random Glucose 76 MG/DL (74-106) 103 MG/DL (74-106) Total Protein 6.1 GM/DL (6.4-8.2) 6.2 GM/DL (6.4-8.2) Albumin 2.8 GM/DL (3.4-5.0) 2.4 GM/DL (3.4-5.0) Calcium Level 8.1 MG/DL (8.5-10.1) 8.4 MG/DL (8.5-10.1) Alkaline Phosphatase 137 U/L (45-117) 115 U/L (45-117) Aspartate Amino Transf (AST/SGOT) 23 U/L (15-37) 22 U/L (15-37) Alanine Aminotransferase (ALT/SGPT) 20 U/L (10-53) 21 U/L (10-53) Total Bilirubin 0.4 MG/DL (0.2-1.0) 0.5 MG/DL (0.2-1.0) Sodium Level 143 MEQ/L (136-145) 141 MEQ/L (136-145) Potassium Level 3.9 MEQ/L (3.5-5.1) 3.4 MEQ/L (3.5-5.1) Chloride Level 113 MEQ/L (98-107) 110 MEQ/L (98-107) Carbon Dioxide Level 20.0 MEQ/L (21.0-32.0) 19.9 MEQ/L (21.0-32.0) Anion Gap 10 MEQ/L (5-15) 11 MEQ/L (5-15) Estimat Glomerular Filtration Rate 90 ML/MIN (>89) 110 ML/MIN (>89) Urine Color YELLOW (YELLW/STRAW) Urine Turbidity CLEAR (CLEAR) Urine pH 6.0 (5.0-8.5) Urine Specific [place] 1.020 (1.002-1.035) Urine Protein 30 mg/dL (NEG-TRACE) Urine Glucose (UA) NEG mg/dL (NEG) Urine Ketones 150 mg/dL (NEG) Urine Occult Blood SMALL (NEG) Urine Nitrite NEG (NEG) Urine Bilirubin NEG (NEG) Urine Urobilinogen 2.0 MG/DL (LESS THAN Urine Leukocyte Esterase NEG (NEG) Urine RBC 20 /hpf (0-3) Urine WBC 20 /hpf (0-5) Urine Bacteria RARE /hpf (NONE) Urine Hyaline Casts 11 /lpf (RARE) Urine Mucus FEW /lpf (OCC) Microscopic Urinalysis Comment CATH-CULTURE IND Result Diagram: 01/27/18 1140 01/27/18 1140 Microbiology Microbiology Date/Time Source Procedure Growth Status 01/27/18 11:15 Urine Catheterized Urine Urine Culture Pending Received Imaging Last Impressions Head CT 01/24/18 0600 Signed Impressions: Service Date/Time: Wednesday, January 24, 2018 04:36 - CONCLUSION: No significant change posterior fossa blood as described. No supratentorial blood. No midline shift. Brayan Ann MD Chest X-Ray 01/24/18 0000 Signed Impressions: Service Date/Time: Wednesday, January 24, 2018 03:27 - CONCLUSION: No significant change mild patchy airspace opacities of the left mid and lower lung. Brayan Ann MD Neck CTA 01/23/18 1933 Signed Impressions: Service Date/Time: Tuesday, January 23, 2018 18:47 - CONCLUSION: Occlusion of the left internal carotid artery. Brayan Marion MD Head CTA 01/23/18 1827 Signed Impressions: Service Date/Time: Tuesday, January 23, 2018 18:47 - CONCLUSION: Occlusion of the left internal carotid artery. An aneurysm is not seen. Brayan Marion MD Abdomen X-Ray 01/23/18 0000 Signed Impressions: Service Date/Time: Tuesday, January 23, 2018 20:19 - CONCLUSION: No evidence of obstruction. NG tube tip in the proximal stomach. Brayan Marion MD Procedures INTUBATED 01/23/18 EXTUBATED 01/27/18 Dobbhoff attempted 01/27/18 . Patient/Family Conference Present at Family Conference: Patient's son Gold Nagy by telephone . Family Conference Time (mins): 25 Family Conference Location: Telephone Issues Discussed: * Palliative care role, purpose, approach * Additional medical, psychosocial, and spiritual history * Patients general health, functional status, and cognitive changes in the months leading up to the current hospitalization * Patient/family understanding of the current medical problems * Patient/family understanding of prognosis * Patients goals of care as best understood from advance directives and/or conversations and/or values * Current medical treatment options and benefits/burdens of those options * Likely scenarios comparing ongoing aggressive care with a transition to comfort measures only * Questions answered to the best of my ability * Palliative care contact information provided . Assessment and Plan Disease Oriented Problem List: (1) Acute hemorrhage, vermis cerebellum (2) Severe oral pharyngeal dysphagia, high aspiration risk (3) Hypertensive emergency (4) COPD (5) Carotid stenosis, occluded left carotid for several years (6) Hyperlipidemia (7) Idiopathic nonfamilial dystonia (8) Irritable bowel syndrome (9) Seizure disorder (10) Hypothyroidism (11) Depression Symptom Scale: (1) Dyspnea 0-10 Scale: 0 (Extubated 01/27/18, high risk for aspiration and recurrent dyspnea) (2) Pain 0-10 Scale: 1 (Mild, chronic arthritic discomfort) (3) Dysphagia 0-10 Scale: Unable to quantify ("Severe oral pharyngeal dysphagia" per speech therapy 01/27/18) Pertinent Non-Medical Issues Psychosocial: , lives with 2 of her 3 sons. Spiritual: Jewish, would [facility] a [facility]. Legal: The patient is alert, oriented, and has reasonable insight and judgment with respect to her medical condition and risks. I believe she has capacity for decision-making at this time. She reports that she has a living will and healthcare surrogate, but is unsure which of her sons (or all of them) are designated as HCS, so the sons are to bring the paperwork in. If there is no healthcare surrogate specified, then the decision making would fall to the majority of her 3 available and willing sons, Gold, Gilmar, and Horacio. Ethical issues impacting care: None . Important Contacts Son: Gold Nagy [phone] Son: Gilmar Tricia [phone] . Prognosis Overall, the patient's prognosis is quite guarded. If the severe dysphagia does not resolve, she will undoubtedly aspirated and have further pneumonia and respiratory compromise (with previously existing COPD). She will be appropriate for hospice services if the goals become completely comfort oriented. . Code Status: Full Code Plan * FULL CODE, as per patient 01/27/18 * GOALS: After lengthy discussion with the patient about her dysphagia, the risks of aspiration, and the pros and cons of artificial nutrition and hydration , the patient has decided that she would now like to try having the nurse place the Dobbhoff and initiate artificial nutrition/hydration. When questioned about CODE STATUS, she DOES feel that she would want to be resuscitated again, and she would accept reintubation and mechanical ventilation "for some period of time," but she is not able to specify timeframe. Her main overall goal is to get back home. * DECISION-MAKING: The patient is alert, oriented, and has reasonable insight and judgment with respect to her medical condition and risks. I believe she has capacity for decision-making at this time. She reports that she has a living will and healthcare surrogate, but is unsure which of her sons (or all of them) are designated as HCS, so the sons are to bring the paperwork in. If there is no healthcare surrogate specified, then the decision making would fall to the majority of her 3 available and willing sons, Gold, Gilmar, and Horacio. * SYMPTOMS: The dysphagia is profound, and a Dobbhoff is going to be attempted for artificial nutrition/hydration. Her pain is mild arthritic discomfort, and she generally does not require medication intervention for that. She remains at high risk for aspiration and dyspnea or respiratory failure, and that can be managed, of course, with reintubation as she is requesting now, or with judicious dosing of opiates and benzodiazepine if the goals become more comfort oriented. * [facility]age Tender visit requested. * Palliative Care will continue to follow the patient during this hospitalization. . Time Spent Total Floor Time (mins): 72 Face to Face Time (mins): 30 >50% Counseling/Coord of Care: Yes (d/w Dr. Gibson and with RN) Thank you for the opportunity to participate in the care of Ms. Nagy. Attestation To help prompt me to consider important information that might be impacting today's encounter and assessment, information from prior notes written by myself or my colleagues may have been "brought forward" into today's note. My signature on this note, however, is an attestation that I personally performed the exam, history, and/or decision-making noted today, and, unless otherwise indicated, the interactions with patient, family, and staff as well as the review of records all occurred today. I also attest that the listed assessment and stated plan reflect my best clinical judgment today based on the combination of historical information, prior notes, and today's exam/ interactions. When time spent is documented, it refers only to time spent today by the signer, or if indicated, combined time spent today by collaborating physician/nurse practitioner. Romy Ramírez MD Jan 27, 2018 15:04
--- NOTE | 2018-01-27 17:35 | MH ---
cc: Shant Stringer MD DATE OF ADMISSION: 01/23/2018 REQUESTING PHYSICIAN: Dr. Gibson REASON FOR CONSULTATION: Assistance in medical management and to assume care after discharge from intensive care unit. HISTORY OF PRESENT ILLNESS: This 77-year-old white female, well known to the undersigned physician, presented to the emergency department on 01/23/2018 with a complaint of a severe headache. She then had alteration in mental status which deteriorated. She was transferred to the Emergency Department. In the Emergency Department, it was found that the patient initially was awake and alert, but then developed progressive neurologic deficits and she could no longer protect her airway, so she was intubated and placed on mechanical ventilation. The patient's CT scan of the brain revealed a midline posterior hemorrhage involving the vermis and cerebellum. It also involved the subarachnoid, subdural and intraparenchymal space. CTA revealed no evidence of any aneurysm. The patient was maintained on mechanical ventilation until she was able to be weaned off last evening. She has been seen in consultation by Neurology and Neurosurgery. At this point Neurosurgery has recommended no surgical intervention. It is recommended that the patient's blood pressure be kept between 110 and 140 and the patient has been evaluated by physical, occupational and speech therapy. Earlier today the patient failed her swallow evaluation. She is n.p.o. at this time. Initially, she refused a Dobbhoff tube, but has since changed her mind and is agreeing to have one placed for enteral feedings and for medications. The patient was also seen in consultation by Dr. Ramírez for Palliative Care and, after an extensive conversation, the patient has requested to receive the enteral feedings and continue with aggressive care. She does have 3 sons and has a living will, but she is felt to be competent at this time to manage her own affairs. The patient was on supplemental oxygen at 2 liters per minute per nasal cannula earlier today, but now is on room air. She denies any pain. She states her vision is blurry, she is having difficulty maintaining focus and has a leftward gaze. She has no chest pain, no shortness of breath. She has been afebrile. She has an occasional cough with some congestion within the throat. She has had no nausea or vomiting. PAST MEDICAL HISTORY: Significant for peripheral neuropathy, carotid stenosis with a total occlusion of the left internal carotid artery, but the right internal carotid artery remains patent. She has a history of lumbar disk disease with radiculopathy, hyperlipidemia, hypothyroidism, irritable bowel syndrome, osteoporosis, peripheral neuropathy, COPD, generalized osteoarthritis, depression, history of rheumatic fever, diverticulosis, Clostridium difficile colitis. She also has dystonia and she has had previous brain surgery x 2. PAST SURGICAL HISTORY: Surgical history is significant for bilateral cataract removal with lens implants, ORIF of the left ankle, right hip replacement, carpal tunnel release on the right, left total hip replacement and right shoulder replacement due to fracture. The patient has had right upper extremity weakness chronically. HOME MEDICATIONS: 1. Temazepam 30 mg at bedtime as needed for insomnia/ 2. Famotidine 40 mg daily. 3. Vitamin D3 2000 international units daily. 4. MiraLax 17 g in 8 ounces of liquid daily. 5. Lyrica 25 mg once a day. 6. Carbamazepine ER 200 mg daily. 7. Tramadol 50 mg every 8 hours as needed for pain. 8. Caltrate 600 mg 1 tablet daily. 9. Synthroid 25 mcg 1 tablet daily. CURRENT MEDICATIONS: 1. Lisinopril 2.5 mg through the NG tube. 2. Pantoprazole 40 mg daily. 3. She has sliding scale of insulin as needed. 4. Albuterol. 5. Ipratropium bromide nebulizer solutions 1 unit dose every 6 hours. 6. Mary-Colace 1 tablet twice daily. 7. Labetalol 10 mg IV every 1 hour for systolic blood pressure greater than 140 or diastolic blood pressure greater than 80. 8. Acetaminophen 650 mg every 6 hours as needed for fever. 9. Zofran 4 mg IV every 6 hours as needed for nausea. 10. Senokot 17.2 mg every 12 hours as needed for moderate constipation. 11. Milk of magnesia 30 mL every 12 hours as needed for mild constipation. 12. Dulcolax suppository 10 mg 1 per rectum daily as needed for severe constipation. 13. Lactulose 30 mL daily as needed for severe constipation. ALLERGIES: PENICILLIN, WHICH CAUSES ANAPHYLAXIS. IMMUNIZATION HISTORY: The patient had pneumococcal vaccination in October 2005 and again in August 2016. Last influenza vaccination was in August 2016. FAMILY HISTORY: Noncontributory. SOCIAL HISTORY: She is . She lives with 2 of her sons. She is a nonsmoker. She does not consume alcohol. She is retired. REVIEW OF SYSTEMS: Negative except as outlined above. PHYSICAL EXAMINATION: VITAL SIGNS: At the current time. Blood pressure is 151/68 with a heart rate of 82, respirations are 28 to 31, temperature 98.2, oxygen saturation on room air is 99%. GENERAL: This is an overweight, elderly white female lying in bed, awake and alert with some increased respiratory effort. HEENT: The pupils are equal, round and reactive to light. The patient has a leftward gaze and movements are intact, but she has difficulty tracking with lateral gaze. Mouth and throat reveal moist mucous membranes. No erythema or exudates. NECK: Supple without lymphadenopathy, JVD, bruits or thyromegaly. CARDIOVASCULAR: Regular rate and rhythm without murmurs, rubs or gallops. LUNGS: Clear to auscultation bilaterally without wheezes, rhonchi or rales. ABDOMEN: Obese, soft, nontender, nondistended with bowel sounds present. No masses palpable. GENITOURINARY AND RECTAL: Deferred. LOWER EXTREMITIES: Reveal no appreciable edema. Intact distal pulses. No calf tenderness. NEUROLOGIC: The patient is awake and alert. Cranial nerves are intact except there is the leftward gaze. She has no lateralizing deficits. Strength is 4-5/5 in the upper and lower extremities. She has some dysarthria, but her speech is well organized and intelligible. She is oriented to person, place, but not to time. Downgoing toes bilaterally. SKIN: Warm and dry. LABORATORY DATA: The patient's white blood cell count earlier today was 13.7, hemoglobin 12.7, hematocrit 37.6, platelet count was 219,000. White blood count differential showed 89 polys, 5.5 lymphocytes, 5.3 monocytes. The comprehensive metabolic profile was significant for a sodium of 141, potassium was 3.4, bicarbonate was 19.9, which is low. The calcium was 8.4, which is low, but total protein and albumin were both low at 6.2 and 2.4. The patient has a urine culture pending. Urinalysis done earlier today revealed a specific gravity of 1.020, pH of 6.0, 30 mg percent protein, 150 ketones, small occult blood, 20 RBCs, 20 WBCs, rare bacteria. IMAGING STUDIES: The CT scan of the head done on 01/24/2018 showed no significant change with posterior fossa or blood as previously described. Chest x-ray performed on 01/24/2018 revealed mild patchy airspace opacities in the left mid and lower lung. The CTA of the neck performed on 01/23/2018 revealed occlusion of the left internal carotid artery. CTA of the head done 01/23/2018 revealed occlusion of the left internal carotid artery. No aneurysm is seen. X-ray of the abdomen revealed no evidence of obstruction. NG tube tip in the proximal stomach and the initial CT of the head done 01/23/2018 revealed vermian hemorrhage, midline posterior fossa without blood in the fourth ventricle. ASSESSMENT AND PLAN: 1. This 77-year-old white female is status post a posterior fossa hemorrhage. She initially was intubated in order to protect her airway. She has now been extubated and respiratory status appears to be improving. She is now on room air. We will continue to monitor respiratory status closely. As for her neurologic status, she still has deficits including a leftward gaze. She has been evaluated by Neurosurgery who feels the patient is not a candidate for any surgical intervention. Neurology is also following. She has been evaluated by Speech Therapy, Occupational Therapy and Physical Therapy. She will continue with therapy services. 2. Hypertension. We will maintain systolic blood pressure between 110 and 140. She is on a nicardipine drip, which is going to be weaned. Once the patient's NG tube is placed, we will place her on oral antihypertensive medication and will monitor blood pressure closely. 3. Dysphagia. The patient is having a Dobbhoff tube placed. We will begin enteral feedings once it is placed and positioning is confirmed. We will provide the patient with nutrition and medication until her dysphagia has resolved. She will continue to be followed by Speech Therapy. 4. History of dystonia. The patient normally takes carbamazepine 200 mg daily. Once we have established the Dobbhoff tube, we will plan to resume carbamazepine in the morning at 200 mg daily. 5. Hypothyroidism. We will need to resume Synthroid through nasogastric tube when it is placed. 6. Deep venous thrombosis prophylaxis. The patient will continue with sequential compression devices on the lower extremities. She is not a candidate for any pharmacologic deep venous thrombosis prophylaxis. 7. Leukocytosis. The patient's white blood count was elevated today. We will need to follow. Urine culture pending. Begin IV antibiotic therapy if needed. Monitor for any fevers. 8. Hypokalemia. Patient receiving IV potassium supplement. Repeat potassium level is pending. Per protocol, will followup repeat potassium level. 9. Disposition: The patient likely will be transferred out of the intensive care unit in the morning to a medical/surgical floor. Ultimately, she will need placement in a rehab facility. We will determine, based on her progress, whether it would be an acute inpatient rehabilitation center or a subacute rehabilitation center. I will discuss this further with the patient as her condition improves. Shant Stringer MD JRM/SB , 04:38 PM , 05:34 PM MTDD
[2018-01-27] MEDS: ONDANSETRON HCL 4 MG/2 ML VIAL IV PUSH PRN (18:06)
[2018-01-28] VITALS (11 sets, daily range): BP systolic 132–174; BP diastolic 56–84; PULSE 72–90; RESP 19–28; TEMP 97.9–98.8; O2SAT 93–100
[2018-01-28] MEDS: CHLORHEXIDINE GLUCONATE 2 % 1 PACK (2 CLOTHS) TOP SCH (04:00)
--- NOTE | 2018-01-28 04:51 | RADRPT ---
EXAM DATE/TIME: 01/28/2018 03:57 [facility] COMPARISON: CT BRAIN W/O CONTRAST, January 24, 2018, 4:36. INDICATIONS : Follow up bleed. RADIATION DOSE: 56.35 CTDIvol (mGy) MEDICAL HISTORY : Chronic obstructive pulmonary disease. Congestive heart failure. Gastroesophageal reflux disease.Thyr oid disease SURGICAL HISTORY : Appendectomy. section.Tonsillectomy.brain surgery for dystonia ENCOUNTER: Subsequent ACUITY: 4 - 6 days PAIN SCALE: Non-responsive LOCATION: cranial TECHNIQUE: Multiple contiguous axial images were obtained of the head. Using automated exposure control and adj ustment of the mA and/or kV according to patient size, radiation dose was kept as low as reasonably a chievable to obtain optimal diagnostic quality images. DICOM format image data is available electro nically for review and comparison. FINDINGS: Again seen is blood involving the cerebellum and fourth ventricle. This is stable from prior study. N o new source of hemorrhage observe. Brain parenchyma shows normal attenuation otherwise. Ventricles a re normal in size. CONCLUSION: Stable posterior cranial fossa hemorrhage. Bimal Victoria Jr., MD on January 28, 2018 at 4:47 Board Certified Radiologist. This report was verified electronically.
[2018-01-28] MEDS: INSULIN NovoLIN REGULAR SUPPLEMENTAL SCALE SQ SCH ×4 (06:00→18:20)
[2018-01-28 06:05] LABS: AUTOMATED NEUTROPHIL # 10.2 TH/MM3 (1.8-7.7); BASOPHIL % 0.3 % (0.0-2.0); EOSINOPHIL % 0.2 % (0.0-4.0); HEMATOCRIT 38.6 % (35.0-46.0); LYMPH % 6.7 % (9.0-44.0); LYMPHOCYTE # 0.8 TH/MM3 (1.0-4.8); MEAN CELL VOLUME 96.2 FL (80.0-100.0); MEAN CORPUSCULAR HEMOGLOBIN 32.5 PG (27.0-34.0); MEAN CORPUSCULAR HGB CONC 33.8 % (32.0-36.0); MEAN PLATELET VOLUME 8.9 FL (7.0-11.0); MONO % 6.6 % (0.0-8.0); MONOCYTE # 0.8 TH/MM3 (0-0.9); NEUT % 86.2 % (16.0-70.0); PLATELET COUNT 238 TH/MM3 (150-450); RED BLOOD COUNT 4.02 MIL/MM3 (4.00-5.30); RED CELL DISTRIBUTION WIDTH 14.2 % (11.6-17.2); WHITE BLOOD COUNT 11.8 TH/MM3 (4.0-11.0)
[2018-01-28 06:34] LABS: ALBUMIN 2.5 GM/DL (3.4-5.0); AST (GOT) 25 U/L (15-37); BICARBONATE 18.4 MEQ/L (21.0-32.0); BLOOD UREA NITROGEN 17 MG/DL (7-18); CALCIUM 8.5 MG/DL (8.5-10.1); CHLORIDE 111 MEQ/L (98-107); GLOMERULAR FILTRATION RATE 120 ML/MIN (>89); GLUCOSE,RANDOM 87 MG/DL (74-106); SODIUM (NA) 141 MEQ/L (136-145)
[2018-01-28 06:36] LABS: ALT (GPT) 24 U/L (10-53)
[2018-01-28 06:38] LABS: ALKALINE PHOSPHATASE 110 U/L (45-117); TOTAL BILIRUBIN ADULT 0.5 MG/DL (0.2-1.0); TOTAL PROTEIN 6.1 GM/DL (6.4-8.2)
[2018-01-28] MEDS: SODIUM CHLOR 0.9% 1000 ML INJ 1,000 ML IV SCH ×2 (07:15→21:10)
[2018-01-28] MEDS: CHLORHEXIDINE 0.12% (ORAL KIT) 15 ML CUP MT SCH ×2 (08:00→20:00)
[2018-01-28] MEDS: DOCUSATE SODIUM 50 MG/SENNA 8.6 MG TAB PO SCH ×2 (08:26→21:05)
[2018-01-28] MEDS: ARTIFICIAL TEARS OPTH SOLN 15 ML BTL EACH EYE SCH ×3 (08:26→18:20)
[2018-01-28] MEDS: LISINOPRIL 5 MG TAB OG-TUBE SCH (08:26)
[2018-01-28] MEDS: SODIUM CHLORIDE 0.9% FLUSH 10 ML FLUSH IV FLUSH SCH ×2 (08:26→21:06)
[2018-01-28] MEDS: PANTOPRAZOLE SODIUM 40 MG VIAL IV PUSH SCH (09:00)
--- NOTE | 2018-01-28 09:42 | HHI.NSPN ---
(Walter San) History Chief Complaint: Dizziness (Walter San) Interval History 01/23: Patient admitted with midline posterior haemorrhage involving the vermis/ cerebellar subdural, subarachnoid & intraparenchymal spaces. No aneurysm. Neurosurgery consulted and evaluated patient. No indication for neurosurgical intervention. 01/24: The patient is intubated and mechanically ventilated. She is sedated with propofol and midazolam. She did partially open the right eye to voice and weakly followed commands with all extremities. A repeat CT brain this morning demonstrated a stable haemorrhage. Nursing does report that the patient's propofol was increased this morning due to agitation. 01/25: This morning the patient remains intubated and mechanically ventilated. She continues to be sedated with propofol and midazolam. With her sedation held she did follow commands with all extremities and opened her eyes. 01/26: The patient's midazolam and fentanyl have been stopped since last seen. Her propofol has also been decreased. The patient partially opened her eyes to voice and followed commands with her sedation held. 01/27: The [facility] [employer] extubated the patient this morning. When seen the patient is asleep but awakens to voice. She does say she has dizziness and blurry vision. She also has pain to the neck. She denies any headache or any pain, numbness or tingling to the extremities. She states that she uses a walker for ambulation. No sensorimotor deficits noted upon examination. 01/28: When seen the patient is awake and alert in bed. She asks when she is able to eat. The patient had a swallow evaluation yesterday and failed. It was recommended that a Dobhoff feeding tube be placed but the patient declined. The patient does complain of dizziness but denies any headache or visual difficulty. She has no pain, numbness or tingling to the extremities. There is no change in her mental status or sensorimotor exam. (Walter San) Exam Results 01/26/18 01/26/18 01/27/18 01/27/18 01/28/18 01/28/18 06:00 18:00 06:00 18:00 06:00 18:00 Intake Total 1086 ml 1100 ml 0 ml 1874 ml Output Total 550 ml 1050 ml 550 ml 450 ml 700 ml Balance 536 ml -1050 ml 550 ml -450 ml 1174 ml Intake Oral 0 ml IV Total 1086 ml 1100 ml 1874 ml Output Urine Total 550 ml 1000 ml 550 ml 450 ml 700 ml Gastric Drainage Total 50 ml # Bowel Movements 0 0 0 0 0 Vital Signs Date Time Temp Pulse Resp B/P (MAP) Pulse Ox O2 Delivery O2 Flow Rate FiO2 01/28/18 08:00 98.4 83 28 141/67 (91) 97 01/28/18 08:00 81 01/28/18 07:00 95 Room Air 01/28/18 06:00 90 01/28/18 04:00 84 01/28/18 04:00 98.2 88 26 166/72 (103) 96 01/28/18 02:00 82 01/28/18 00:00 84 01/28/18 00:00 98.0 78 21 132/56 (81) 99 01/27/18 22:00 79 01/27/18 20:15 97 21 01/27/18 20:00 98.4 110 27 165/77 (106) 99 01/27/18 20:00 110 01/27/18 19:00 97 Nasal Cannula 2.00 01/27/18 18:00 84 01/27/18 16:36 98 21 01/27/18 16:00 89 01/27/18 16:00 97.8 95 19 191/87 (121) 98 01/27/18 14:00 72 01/27/18 12:00 82 01/27/18 12:00 98.2 78 31 151/68 (95) 99 01/27/18 10:00 82 01/27/18 08:00 84 01/27/18 08:00 98.4 79 28 134/66 (88) 97 01/27/18 07:00 95 Nasal Cannula 2.00 01/27/18 06:00 79 01/27/18 04:00 98.0 74 24 153/72 (99) 94 01/27/18 04:00 89 01/27/18 02:00 80 01/27/18 00:00 97.8 79 24 144/58 (86) 93 4/20/18 00:00 79 418 22:00 93 418 20:50 97 Nasal Cannula 3.00 418 20:00 81 418 20:00 97.7 81 20 154/67 (96) 96 18 19:00 97 Nasal Cannula 418 18:00 85 18 16:00 85 18 16:00 97.8 85 22 165/79 (107) 96 01/26/18 14:00 84 18 12:00 96 Nasal Cannula 4.00 01/26/18 12:00 82 418 12:00 98.4 82 18 160/71 (100) 99 01/26/18 10:00 86 01/26/18 09:34 Nasal Cannula 40 01/26/18 09:25 40 01/26/18 08:13 99 Ventilator 40 01/26/18 08:13 99 40 01/26/18 08:00 98.8 93 16 159/68 (98) 100 18 08:00 93 18 08:00 40 18 07:00 100 Mechanical Ventilator 40 01/26/18 06:00 66 01/26/18 04:00 98.1 66 17 164/73 (103) 100 18 04:00 60 18 04:00 40 18 03:10 100 40 18 02:00 60 18 00:00 99.0 60 16 107/55 (72) 100 18 00:00 59 18 00:00 40 18/18 23:23 100 40 18/18 22:00 62 418/18 20:00 40 01/25/18 20:00 100.0 75 16 167/72 (103) 100 18/18 20:00 75 01/25/18 19:25 100 40 18/18 19:00 100 Mechanical Ventilator 40 18 18:00 78 418/18 16:00 66 18/18 16:00 98.4 68 16 155/68 (97) 100 18/18 16:00 40 01/25/18 15:17 99 40 418/18 14:00 94 01/25/18 13:14 100 40 01/25/18 12:00 84 01/25/18 12:00 98.1 84 16 155/72 (99) 100 01/25/18 12:00 40 01/25/18 10:00 85 (Walter San) Physical Examination GENERAL: The patient is awake & alert when seen. Her affect is flat but she readily interacts. She is in no apparent distress. HEENT: Normocephalic, atraumatic. PERRLA 4 mm brisk. On nasal cannula. MUSCULOSKELETAL: She moves all extremities to command. No evident clubbing or deformity. NEUROLOGICAL: AAOx3. Spontaneous eye opening. PERRLA 4 mm brisk. Speech slightly garbled, answers in short sentences. Follows simple commands. CN II through XII appear to be grossly intact. Sensation appears to be intact to light touch to all extremities. Muscle strength appears to be normal to all major flexion & extension muscle groups. (Walter San) Lab, Micro, Other Results Recent Impressions Head CT 01/28/18 0600 Signed Impressions: Service Date/Time: Sunday, January 28, 2018 03:57 - CONCLUSION: Stable posterior cranial fossa hemorrhage. Bimal Victoria Jr., MD Laboratory Tests Test 01/27/18 11:15 01/27/18 11:40 01/28/18 05:03 Urine Color YELLOW Urine Turbidity CLEAR Urine pH 6.0 Urine Specific [place] 1.020 Urine Protein 30 mg/dL Urine Glucose (UA) NEG mg/dL Urine Ketones 150 mg/dL Urine Occult Blood SMALL Urine Nitrite NEG Urine Bilirubin NEG Urine Urobilinogen 2.0 MG/DL Urine Leukocyte Esterase NEG Urine RBC 20 /hpf Urine WBC 20 /hpf Urine Bacteria RARE /hpf Urine Hyaline Casts 11 /lpf Urine Mucus FEW /lpf Microscopic Urinalysis Comment CATH-CULTURE IND White Blood Count 13.7 TH/MM3 11.8 TH/MM3 Red Blood Count 3.89 MIL/MM3 4.02 MIL/MM3 Hemoglobin 12.7 GM/DL 13.0 GM/DL Hematocrit 37.6 % 38.6 % Mean Corpuscular Volume 96.5 FL 96.2 FL Mean Corpuscular Hemoglobin 32.6 PG 32.5 PG Mean Corpuscular Hemoglobin Concent 33.8 % 33.8 % Red Cell Distribution Width 13.9 % 14.2 % Platelet Count 219 TH/MM3 238 TH/MM3 Mean Platelet Volume 8.3 FL 8.9 FL Neutrophils (%) (Auto) 89.0 % 86.2 % Lymphocytes (%) (Auto) 5.5 % 6.7 % Monocytes (%) (Auto) 5.3 % 6.6 % Eosinophils (%) (Auto) 0.0 % 0.2 % Basophils (%) (Auto) 0.2 % 0.3 % Neutrophils # (Auto) 12.2 TH/MM3 10.2 TH/MM3 Lymphocytes # (Auto) 0.8 TH/MM3 0.8 TH/MM3 Monocytes # (Auto) 0.7 TH/MM3 0.8 TH/MM3 Eosinophils # (Auto) 0.0 TH/MM3 0.0 TH/MM3 Basophils # (Auto) 0.0 TH/MM3 0.0 TH/MM3 CBC Comment DIFF FINAL DIFF FINAL Differential Comment Blood Urea Nitrogen 15 MG/DL 17 MG/DL Creatinine 0.54 MG/DL 0.50 MG/DL Random Glucose 103 MG/DL 87 MG/DL Total Protein 6.2 GM/DL 6.1 GM/DL Albumin 2.4 GM/DL 2.5 GM/DL Calcium Level 8.4 MG/DL 8.5 MG/DL Alkaline Phosphatase 115 U/L 110 U/L Aspartate Amino Transf (AST/SGOT) 22 U/L 25 U/L Alanine Aminotransferase (ALT/SGPT) 21 U/L 24 U/L Total Bilirubin 0.5 MG/DL 0.5 MG/DL Sodium Level 141 MEQ/L 141 MEQ/L Potassium Level 3.4 MEQ/L 3.6 MEQ/L Chloride Level 110 MEQ/L 111 MEQ/L Carbon Dioxide Level 19.9 MEQ/L 18.4 MEQ/L Anion Gap 11 MEQ/L 12 MEQ/L Estimat Glomerular Filtration Rate 110 ML/MIN 120 ML/MIN (Walter San) Medical Decision Making Impression and Plan Impression: Spontaneous ICH cerebellar vermis. No evidence aneurysm on CTA HTN The patient is awake & alert. She is oriented x3. She follows commands and there are no evident sensorimotor deficits. Afebrile the past 24 hrs. SBP intermittently outside desired range. Tachycardia yesterday evening. Reviewed labs for today. Improvement in leukocytosis. Sodium 141. CT brain w/stable posterior fossa haemorrhage. Plan: Discussed the plan of care w/patient. Primary & critical care management per [facility] [employer]. Neuro checks. Stat CT brain for any decline in neuro status. Maintain SBP between 110 and 140 mm Hg. Try to avoid any straining or excessive coughing. Hold pharmacologic DVT prophylaxis. Mechanical DVT prophylaxis. Stress ulcer prophylaxis. Physical, Occupational & Speech Therapy eval & tx. Mobilise patient w/assistance. (Walter San) Attending Statement The exam, history, and the medical decision-making described in the above note were completed with the assistance of the mid-level provider. I reviewed and agree with the findings presented. I attest that I had a [id number] encounter with the patient on the same day, and personally performed and documented my assessment and findings in the medical record. No overall change in neurologic status. Moderate dysarthria. 01/28/2018 CT scan head with stable posterior fossa intracranial hemorrhage. Continue therapy Stable for rehab (Henok Johns MD) Walter San Jan 28, 2018 09:42 Henok Johns MD Jan 30, 2018 17:33
--- NOTE | 2018-01-28 11:57 | HHI.PR ---
Subjective Remarks Current Medications Medications (Trade) Dose Ordered Sig/Vicente Route Start Time Stop Time Status Last Admin Nicardipine HCl 25 mg/Sodium Chloride 250 ml @ 50 mls/hr TITRATE PRN IV 01/23/18 18:45 01/24/18 00:00 (D50w (Vial) Inj) 50 ml UNSCH PRN IV PUSH 01/23/18 19:45 01/25/18 04:16 (Glucagon Inj) 1 mg UNSCH PRN OTHER 01/23/18 19:45 (NovoLIN R SUPPLEMENTAL SCALE) 1 Q6HR SQ 01/24/18 00:00 (Peridex 0.12% Liq) 15 ml BID@08,20 MT 01/23/18 20:00 01/28/18 08:00 Propofol 100 ml @ 0 mls/hr TITRATE PRN IV 01/23/18 19:45 01/26/18 07:04 (Trandate Inj) 10 mg Q1HR PRN IV PUSH 01/23/18 20:00 01/26/18 12:00 Sodium Chloride 1,000 ml @ 84 mls/hr [id number] IV 01/23/18 20:00 01/28/18 07:15 (NS Flush) 2 ml UNSCH PRN IV FLUSH 01/23/18 20:00 (NS Flush) 2 ml BID IV FLUSH 01/23/18 21:00 01/28/18 08:26 (Tylenol) 650 mg Q6H PRN NG 01/23/18 20:00 (Protonix Inj) 40 mg DAILY IV PUSH 01/24/18 09:00 01/28/18 09:00 (Tears Naturale Opth Soln) 1 drop TID EACH EYE 01/24/18 09:00 01/28/18 08:26 (Zofran Inj) 4 mg Q6H PRN IV PUSH 01/23/18 20:00 01/27/18 18:06 (Albuterol Neb) 2.5 mg Q2HR NEB PRN INH 01/23/18 20:00 01/26/18 12:16 Miscellaneous Information 1 Q361D XX 01/23/18 20:00 (Chlorhexidine 2% Cloth) 3 pack Taper DAILY@04 TOP 01/24/18 04:00 01/20/19 03:59 01/27/18 04:00 (Chlorhexidine 2% Cloth) 3 pack UNSCH PRN TOP 01/23/18 20:00 (Mary-Colace) 1 tab BID PO 01/23/18 21:00 01/26/18 09:14 (Milk Of Magnesia Liq) 30 ml Q12H PRN PO 01/23/18 20:00 (Senokot) 17.2 mg Q12H PRN PO 01/23/18 20:00 (Dulcolax Supp) 10 mg DAILY PRN RECTAL 01/23/18 20:00 (Lactulose Liq) 30 ml DAILY PRN PO 01/23/18 20:00 Potassium Chloride 100 ml @ 50 mls/hr Q2H PRN IV 01/23/18 20:45 Potassium Chloride 100 ml @ 50 mls/hr Q2H PRN IV 01/23/18 20:45 (K-Lyte Cl Eff) 50 meq UNSCH PRN PO 01/23/18 20:45 Potassium Chloride 100 ml @ 25 mls/hr UNSCH PRN IV 01/23/18 20:45 Potassium Chloride 100 ml @ 50 mls/hr Q2H PRN IV 01/23/18 20:45 01/27/18 18:20 Magnesium Sulfate 4 gm/Sodium Chloride 100 ml @ 50 mls/hr UNSCH PRN IV 01/23/18 20:45 (Mag-Ox) 800 mg UNSCH PRN PO 01/23/18 20:45 Magnesium Sulfate 2 gm/Sodium Chloride 100 ml @ 50 mls/hr UNSCH PRN IV 01/23/18 20:45 (K-Phos) 2,000 mg Q4H PRN PO 01/23/18 20:45 Sodium Phosphate 30 mmol/Sodium Chloride 250 ml @ 42 mls/hr UNSCH PRN IV 01/23/18 20:45 (K-Phos) 2,000 mg UNSCH PRN PO/TUBE 01/23/18 20:45 Potassium Phosphate 30 mmol/ Sodium Chloride 260 ml @ 42 mls/hr UNSCH PRN IV 01/23/18 20:45 (Prinivil) 2.5 mg DAILY OG-TUBE 01/26/18 09:00 01/26/18 09:14 (Pill Splitter) 1 ea UNSCH PRN OTHER 01/26/18 08:45 Patient is awake and alert. She remains n.p.o. due to dysphagia. NG tube placement was attempted yesterday but was unsuccessful. Nursing will try again this morning. The patient continues to receive IV fluids. Blood pressure is intermittently elevated. She currently is not receiving any antihypertensive therapy. Urine output good. Respiratory rate is high at times but patient denies any respiratory distress. Oxygen saturations are all within normal limits. No cough or sputum production. Denies any pain. Objective Vital Signs Date Time Temp Pulse Resp B/P (MAP) Pulse Ox O2 Delivery O2 Flow Rate FiO2 01/28/18 10:00 80 01/28/18 08:00 98.4 83 28 141/67 (91) 97 01/28/18 08:00 81 01/28/18 07:00 95 Room Air 01/28/18 06:00 90 01/28/18 04:00 84 01/28/18 04:00 98.2 88 26 166/72 (103) 96 01/28/18 02:00 82 01/28/18 00:00 84 01/28/18 00:00 98.0 78 21 132/56 (81) 99 01/27/18 22:00 79 01/27/18 20:15 97 21 01/27/18 20:00 98.4 110 27 165/77 (106) 99 01/27/18 20:00 110 01/27/18 19:00 97 Nasal Cannula 2.00 01/27/18 18:00 84 01/27/18 16:36 98 21 01/27/18 16:00 89 01/27/18 16:00 97.8 95 19 191/87 (121) 98 01/27/18 14:00 72 01/27/18 12:00 82 01/27/18 12:00 98.2 78 31 151/68 (95) 99 I/O 01/27/18 01/27/18 01/27/18 01/28/18 01/28/18 01/28/18 07:00 15:00 23:00 07:00 15:00 23:00 Intake Total 1100 ml 681 ml 1193 ml Output Total 550 ml 450 ml 700 ml Balance 550 ml 231 ml 493 ml Intake Oral 0 ml IV Total 1100 ml 681 ml 1193 ml Output Urine Total 550 ml 450 ml 700 ml # Bowel Movements 0 0 0 Cardiovascular: Regular rate and rhythm with systolic murmur Lungs: Clear to auscultation without wheezes, rhonchi or rales Abdomen: Soft, nontender nondistended with bowel sounds present Lower extremities reveal no appreciable edema or calf tenderness. Neurologic examination: Patient is awake and alert. Cranial nerves are intact. Speech reveals moderate dysarthria but content good. No definite lateralizing deficits except for chronic right upper extremity decreased fine motor control and strength, downgoing toes bilaterally Result Diagram: 01/28/18 0503 01/28/18 0503 Imaging Last [address] 01/28/18 0600 Signed Impressions: Service Date/Time: Sunday, January 28, 2018 03:57 - CONCLUSION: Stable posterior cranial fossa hemorrhage. Bimal Victoria Jr., MD Assessment and Plan Problem List: (1) Intracranial hemorrhage ICD Codes: I62.9 - Nontraumatic intracranial hemorrhage, unspecified Status: Acute Plan: CT reveals stable hemorrhage and cerebellum and fourth ventricle. Patient stable from a neurologic standpoint. Continue with physical and Occupational Therapy. Continue to control blood pressure as recommended by neurosurgery. (2) Severe oral pharyngeal dysphagia, high aspiration risk Status: Acute Plan: Another attempt at placing NG tube will be made today. Patient will need enteral feedings until she can take adequate oral feedings. Continue to work with speech therapy. (3) Hypertension ICD Codes: I10 - Essential (primary) hypertension Status: Acute Plan: Keep systolic blood pressure less than 140. Patient will begin lisinopril when NG tube is placed. We will provide clonidine as needed. Will not be able to receive labetalol IV on medical surgical unit. (4) Hypothyroidism Status: Chronic Plan: Resume levothyroxine through NG tube (5) Idiopathic nonfamilial dystonia Status: Chronic Plan: Will resume carbamazepine when patient able to take p.o. Assessment and Plan We will transfer to medical surgical bed. Problem Qualifiers (1) Hypertension: Qualified Codes: I10 - Essential (primary) hypertension Shant Stringer MD Jan 28, 2018 11:57
--- NOTE | 2018-01-28 12:19 | RADRPT ---
EXAM DATE/TIME: 01/28/2018 11:48 [facility] COMPARISON: ABDOMEN SINGLE VIEW, January 23, 2018, 20:19. INDICATIONS : Dobbhoff type feeding tube placement. MEDICAL HISTORY : None. SURGICAL HISTORY : None. ENCOUNTER: Initial ACUITY: 4 - 6 days PAIN SCORE: Non-responsive. LOCATION: Left upper quadrant FINDINGS: A single AP supine view of the abdomen was obtained. Portions of the pelvis and right side of the abd omen were cut off the exam. A Dobbhoff type feeding tube has been placed with the tip projected over the proximal to mid stomach. The previously noted nasogastric tube has been removed. There is a nonob structive bowel gas pattern. CONCLUSION: Placement of Dobbhoff type feeding tube with the tip projected over the proximal to m id stomach. Colt Yadav MD on January 28, 2018 at 12:16 Board Certified Radiologist. This report was verified electronically.
--- NOTE | 2018-01-28 14:09 | RADRPT ---
EXAM DATE/TIME: 01/28/2018 13:15 [facility] COMPARISON: ABDOMEN SINGLE VIEW, January 28, 2018, 11:48. INDICATIONS : Confirm NG tube placement. MEDICAL HISTORY : None. SURGICAL HISTORY : None. ENCOUNTER: Initial ACUITY: 1 day PAIN SCORE: 0/10 LOCATION: Bilateral abdomen. FINDINGS: Examination of the abdomen demonstrates weighted feeding tube projecting over the left upper abdomina l quadrant, presumably in the gastric lumen. Nonobstructive bowel gas pattern. Left basilar consolida tion/effusion. CONCLUSION: 1. Weighted feeding tube projects over the expected location of the gastric lumen. 2. Nonobstructive bowel gas pattern. 3. Left basilar consolidation/effusion. Gerry Karimi MD on January 28, 2018 at 14:06 Board Certified Radiologist. This report was verified electronically.
[2018-01-28] MEDS: LABETALOL HCL 100 MG/20 ML VIAL IV PUSH PRN (15:59)
[2018-01-28] MEDS: cloNIDine HCL 0.1 MG TAB NG PRN (21:09)
[2018-01-28] MEDS: RESP: ALBUTEROL 2.5 MG/3 ML NEB (PRN) INH (21:25)
[2018-01-29] VITALS (7 sets, daily range): BP systolic 136–177; BP diastolic 58–83; PULSE 71–93; RESP 18–20; TEMP 97.2–97.8; O2SAT 92–97
[2018-01-29] MEDS: INSULIN NovoLIN REGULAR SUPPLEMENTAL SCALE SQ SCH ×5 (06:55→23:58)
[2018-01-29] MEDS: SODIUM CHLOR 0.9% 1000 ML INJ 1,000 ML IV SCH (07:05)
[2018-01-29 08:10] LABS: AUTOMATED NEUTROPHIL # 8.7 TH/MM3 (1.8-7.7); BASOPHIL # 0.1 TH/MM3 (0-0.2); BASOPHIL % 0.7 % (0.0-2.0); EOSINOPHIL # 0.1 TH/MM3 (0-0.4); HEMATOCRIT 38.4 % (35.0-46.0); LYMPH % 9.7 % (9.0-44.0); LYMPHOCYTE # 1.1 TH/MM3 (1.0-4.8); MEAN CELL VOLUME 95.6 FL (80.0-100.0); MEAN CORPUSCULAR HEMOGLOBIN 32.3 PG (27.0-34.0); MEAN CORPUSCULAR HGB CONC 33.7 % (32.0-36.0); MEAN PLATELET VOLUME 8.7 FL (7.0-11.0); MONO % 8.6 % (0.0-8.0); MONOCYTE # 0.9 TH/MM3 (0-0.9); PLATELET COUNT 245 TH/MM3 (150-450); RED BLOOD COUNT 4.02 MIL/MM3 (4.00-5.30); RED CELL DISTRIBUTION WIDTH 13.6 % (11.6-17.2); WHITE BLOOD COUNT 10.9 TH/MM3 (4.0-11.0)
[2018-01-29 08:45] LABS: BICARBONATE 21.1 MEQ/L (21.0-32.0); CALCIUM 7.7 MG/DL (8.5-10.1); CREATININE 0.32 MG/DL (0.50-1.00)
[2018-01-29] MEDS ORDERED: POTASSIUM CHLOR 20 MEQ PREMIX 100 ML IV ONE (09:15)
[2018-01-29] MEDS: LISINOPRIL 5 MG TAB OG-TUBE SCH (09:24)
[2018-01-29] MEDS: SODIUM CHLORIDE 0.9% FLUSH 10 ML FLUSH IV FLUSH SCH ×2 (09:25→20:32)
[2018-01-29] MEDS: ARTIFICIAL TEARS OPTH SOLN 15 ML BTL EACH EYE SCH ×3 (09:25→18:36)
[2018-01-29] MEDS: CHLORHEXIDINE 0.12% (ORAL KIT) 15 ML CUP MT SCH ×2 (09:25→20:00)
[2018-01-29] MEDS: PANTOPRAZOLE SODIUM 40 MG VIAL IV PUSH SCH (09:25)
[2018-01-29] MEDS: CHLORHEXIDINE GLUCONATE 2 % 1 PACK (2 CLOTHS) TOP SCH (09:25)
[2018-01-29] MEDS: DOCUSATE SODIUM 50 MG/SENNA 8.6 MG TAB PO SCH (09:26)
[2018-01-29] MEDS: cloNIDine HCL 0.1 MG TAB NG PRN ×2 (12:20→23:55)
--- NOTE | 2018-01-29 13:18 | HHI.PR ---
Subjective Remarks Patient is awake and alert. She had some nausea earlier today. Tube feeds were held. She is having frequent loose stools. Denies abdominal pain. She remains afebrile. Potassium level was low this morning. Receiving IV potassium supplement. Evaluated by speech therapy earlier and was cleared for nectar thick liquids and pured diet. Blood pressure still elevated at times. Receiving lisinopril scheduled and clonidine as needed. Current Medications Medications (Trade) Dose Ordered Sig/Vicente Route Start Time Stop Time Status Last Admin Nicardipine HCl 25 mg/Sodium Chloride 250 ml @ 50 mls/hr TITRATE PRN IV 01/23/18 18:45 01/24/18 00:00 (D50w (Vial) Inj) 50 ml UNSCH PRN IV PUSH 01/23/18 19:45 01/25/18 04:16 (Glucagon Inj) 1 mg UNSCH PRN OTHER 01/23/18 19:45 (NovoLIN R SUPPLEMENTAL SCALE) 1 Q6HR SQ 01/24/18 00:00 (Peridex 0.12% Liq) 15 ml BID@08,20 MT 01/23/18 20:00 01/28/18 08:00 Propofol 100 ml @ 0 mls/hr TITRATE PRN IV 01/23/18 19:45 01/26/18 07:04 (Trandate Inj) 10 mg Q1HR PRN IV PUSH 01/23/18 20:00 01/28/18 15:59 Sodium Chloride 1,000 ml @ 84 mls/hr [id number] IV 01/23/18 20:00 01/28/18 21:10 (NS Flush) 2 ml UNSCH PRN IV FLUSH 01/23/18 20:00 (NS Flush) 2 ml BID IV FLUSH 01/23/18 21:00 01/29/18 09:25 (Tylenol) 650 mg Q6H PRN NG 01/23/18 20:00 (Protonix Inj) 40 mg DAILY IV PUSH 01/24/18 09:00 01/29/18 09:25 (Tears Naturale Opth Soln) 1 drop TID EACH EYE 01/24/18 09:00 01/29/18 12:20 (Zofran Inj) 4 mg Q6H PRN IV PUSH 01/23/18 20:00 01/27/18 18:06 (Albuterol Neb) 2.5 mg Q2HR NEB PRN INH 01/23/18 20:00 01/28/18 21:25 Miscellaneous Information 1 Q361D XX 01/23/18 20:00 (Chlorhexidine 2% Cloth) Taper DAILY@04 TOP 01/24/18 04:00 01/20/19 03:59 01/27/18 04:00 (Chlorhexidine 2% Cloth) 3 pack UNSCH PRN TOP 01/23/18 20:00 (Mary-Colace) 1 tab BID PO 01/23/18 21:00 01/28/18 21:05 (Milk Of Magnesia Liq) 30 ml Q12H PRN PO 01/23/18 20:00 (Senokot) 17.2 mg Q12H PRN PO 01/23/18 20:00 (Dulcolax Supp) 10 mg DAILY PRN RECTAL 01/23/18 20:00 (Lactulose Liq) 30 ml DAILY PRN PO 01/23/18 20:00 (Prinivil) 2.5 mg DAILY OG-TUBE 01/26/18 09:00 01/29/18 09:24 (Pill Splitter) 1 ea UNSCH PRN OTHER 01/26/18 08:45 (Catapres) 0.1 mg Q8HR PRN NG 01/28/18 11:30 01/29/18 12:20 Potassium Chloride 100 ml @ 25 mls/hr ONCE ONCE IV 01/29/18 09:15 01/29/18 13:14 01/29/18 09:25 Objective Vital Signs Date Time Temp Pulse Resp B/P (MAP) Pulse Ox O2 Delivery O2 Flow Rate FiO2 01/29/18 11:39 97.5 81 20 158/77 (104) 96 01/29/18 10:01 97.8 82 20 177/83 (114) 95 01/29/18 05:20 97.2 88 18 148/75 (99) 94 01/29/18 00:45 136/58 (84) 01/29/18 00:31 93 01/29/18 00:00 97.6 82 18 169/72 (104) 92 01/28/18 23:00 98.8 78 19 160/73 (102) 93 01/28/18 21:25 94 21 01/28/18 18:11 Room Air 4/21/18 16:00 98.2 77 21 174/84 (114) 98 01/28/18 14:00 72 I/O 01/28/18 01/28/18 01/28/18 01/29/18 01/29/18 01/29/18 07:00 15:00 23:00 07:00 15:00 23:00 Intake Total 1193 ml 100 ml 0 ml Output Total 700 ml 0 ml 203 ml Balance 493 ml 100 ml -203 ml Intake Oral 0 ml 0 ml IV Total 1193 ml Other 100 ml Output Urine Total 700 ml 0 ml 200 ml Stool Total 3 ml Gastric Drainage Total 0 ml Bladder Scan Volume Amount 439 ml # Voids 3 1 # Bowel Movements 0 0 4 2 Cardiovascular: Regular rate and rhythm with soft systolic murmur Lungs: Clear to auscultation Abdomen: Soft, nontender nondistended with bowel sounds present Lower extremities reveal no appreciable edema. Neurologic examination: Unchanged. Patient awake, alert and oriented 2. Result Diagram: 01/29/1841 01/29/18640 Assessment and Plan Problem List: (1) Intracranial hemorrhage ICD Codes: I62.9 - Nontraumatic intracranial hemorrhage, unspecified Status: Acute Plan: Repeat CT reveals stable hemorrhage. Patient is neurologically stable. She requires maximal assistance of 2-3 individuals for transfer to chair. Will have physical therapy use stretcher chair. (2) Severe oral pharyngeal dysphagia, high aspiration risk Status: Acute Plan: Improving. Patient will begin pured diet with honey thick liquids. Will continue with enteral feeds in order to provide supplemental nutrition. Continue to work with speech therapy (3) Hypokalemia ICD Codes: E87.6 - Hypokalemia Status: Acute Plan: Patient is receiving IV potassium supplement at this time. Will begin potassium chloride through NG tube as supplement. Repeat potassium level in the morning. (4) Diarrhea ICD Codes: R19.7 - Diarrhea, unspecified Status: Acute Plan: Will discontinue Mary-Colace. Diarrhea may be result of tube feeds. Will provide loperamide as needed. (5) Hypertension ICD Codes: I10 - Essential (primary) hypertension Status: Acute Plan: Keep systolic blood pressure less than 140. Will discontinue lisinopril and begin amlodipine 5 mg daily. Patient has clonidine ordered for elevated blood pressure. (6) Hypothyroidism Status: Chronic Plan: Continue levothyroxine (7) Idiopathic nonfamilial dystonia Status: Chronic Plan: Resume carbamazepine through NG tube until patient can swallow capsules. Problem Qualifiers (1) Diarrhea: Qualified Codes: R19.7 - Diarrhea, unspecified (2) Hypertension: Qualified Codes: I10 - Essential (primary) hypertension Shant Stringer MD Jan 29, 2018 13:18
[2018-01-29] MEDS: NS + KCL 40 MEQ INJ 1,000 ML IV SCH (14:39)
[2018-01-29] MEDS: LOPERAMIDE HCL SOLN 2 MG/10 ML UDC NG PRN ×2 (14:39→20:30)
[2018-01-29] MEDS: amLODIPine BESYLATE 5 MG TAB PO SCH (14:39)
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
[2018-01-29] MEDS: TEMAZEPAM 7.5 MG CAP PO SCH (20:31)
[2018-01-29] MEDS: POTASSIUM CHLORIDE 25 MEQ EFFERVESCENT TAB NG SCH (20:31)
[2018-01-29] MEDS: carBAMazepine SUSP 200 MG/10 ML UDC NG SCH (20:32)
[2018-01-30] VITALS (7 sets, daily range): BP systolic 123–165; BP diastolic 58–79; PULSE 84–94; RESP 16–22; TEMP 97.8–98.6; O2SAT 92–96
[2018-01-30] MEDS: CHLORHEXIDINE GLUCONATE 2 % 1 PACK (2 CLOTHS) TOP SCH (04:00)
[2018-01-30] MEDS: INSULIN NovoLIN REGULAR SUPPLEMENTAL SCALE SQ SCH ×3 (06:00→17:42)
[2018-01-30 07:51] LABS: BICARBONATE 20.7 MEQ/L (21.0-32.0); CALCIUM 8.3 MG/DL (8.5-10.1); CREATININE 0.47 MG/DL (0.50-1.00)
[2018-01-30] MEDS: CHLORHEXIDINE 0.12% (ORAL KIT) 15 ML CUP MT SCH ×2 (08:00→20:57)
--- NOTE | 2018-01-30 08:53 | HHI.PR ---
Subjective Remarks Patient is awake and alert. She took p.o. yesterday with modified consistency diet. Diarrhea is better. Still soft stools but not as frequent. Denies abdominal pain. Denies chest pain or shortness of breath. Has not been out of bed over the weekend. Physical therapy has orders for out of bed beginning today. Blood pressure remains higher than desired. Received amlodipine yesterday and again this morning. Current Medications Medications (Trade) Dose Ordered Sig/Vicente Route Start Time Stop Time Status Last Admin (D50w (Vial) Inj) 50 ml UNSCH PRN IV PUSH 01/23/18 19:45 01/25/18 04:16 (Glucagon Inj) 1 mg UNSCH PRN OTHER 01/23/18 19:45 (NovoLIN R SUPPLEMENTAL SCALE) 1 Q6HR SQ 01/24/18 00:00 (Peridex 0.12% Liq) 15 ml BID@08,20 MT 01/23/18 20:00 01/28/18 08:00 (NS Flush) 2 ml UNSCH PRN IV FLUSH 01/23/18 20:00 (NS Flush) 2 ml BID IV FLUSH 01/23/18 21:00 01/29/18 20:32 (Tylenol) 650 mg Q6H PRN NG 01/23/18 20:00 (Protonix Inj) 40 mg DAILY IV PUSH 01/24/18 09:00 01/29/18 09:25 (Tears Naturale Opth Soln) 1 drop TID EACH EYE 01/24/18 09:00 01/29/18 12:20 (Zofran Inj) 4 mg Q6H PRN IV PUSH 01/23/18 20:00 01/27/18 18:06 (Albuterol Neb) 2.5 mg Q2HR NEB PRN INH 01/23/18 20:00 01/28/18 21:25 Miscellaneous Information 1 Q361D XX 01/23/18 20:00 (Chlorhexidine 2% Cloth) Taper DAILY@04 TOP 01/24/18 04:00 01/20/19 03:59 01/27/18 04:00 (Chlorhexidine 2% Cloth) 3 pack UNSCH PRN TOP 01/23/18 20:00 (Milk Of Magnesia Liq) 30 ml Q12H PRN PO 01/23/18 20:00 (Senokot) 17.2 mg Q12H PRN PO 01/23/18 20:00 (Dulcolax Supp) 10 mg DAILY PRN RECTAL 01/23/18 20:00 (Lactulose Liq) 30 ml DAILY PRN PO 01/23/18 20:00 (Pill Splitter) 1 ea UNSCH PRN OTHER 01/26/18 08:45 (Catapres) 0.1 mg Q8HR PRN NG 01/28/18 11:30 01/29/18 23:55 (Norvasc) 5 mg DAILY PO 01/29/18 13:15 01/29/18 14:39 (K-Lyte Cl Eff) 25 meq Q12HR NG 01/29/18 21:00 01/29/18 20:31 (Imodium Liq) 2 mg UNSCH PRN NG 01/29/18 13:15 01/29/18 20:30 (Restoril) 7.5 mg HS PO 01/29/18 21:00 01/29/18 20:31 (TEGretol LIQ) 100 mg Q12HR NG 01/29/18 21:00 01/29/18 20:32 Potassium Chloride/Sodium Chloride 1,000 ml @ 42 mls/hr [id number] IV 01/29/18 13:30 01/29/18 14:39 Objective Vital Signs Date Time Temp Pulse Resp B/P (MAP) Pulse Ox O2 Delivery O2 Flow Rate FiO2 01/30/18 05:15 150/58 (88) 01/30/18 04:00 97.8 89 18 151/72 (98) 96 01/30/18 00:00 98.6 89 18 162/76 (104) 92 01/30/18 00:00 98.6 89 16 162/76 (104) 92 01/29/18 15:39 97.4 71 20 145/68 (93) 97 01/29/18 11:39 97.5 81 20 158/77 (104) 96 01/29/18 10:01 97.8 82 20 177/83 (114) 95 I/O 01/29/18 01/29/18 01/29/18 01/30/18 01/30/18 01/30/18 06:59 14:59 22:59 06:59 14:59 22:59 Intake Total 0 ml 100 ml Output Total 203 ml 600 ml 550 ml Balance -203 ml -500 ml -550 ml Intake Oral 0 ml 0 ml Other 100 ml Output Urine Total 200 ml 600 ml 550 ml Stool Total 3 ml Gastric Drainage Total 0 ml Bladder Scan Volume Amount 439 ml # Voids 3 1 1 # Bowel Movements 4 2 7 Cardiovascular: Regular rate and rhythm Lungs: Clear to auscultation Abdomen: Moderate distention, soft, nontender with bowel sounds present Extremities: No edema or calf tenderness. Neurologic examination: Awake and alert. Oriented to person and place but not to time. Speech reveals dysarthria which is improving. Right upper extremity decreased fine motor control which is a chronic finding. 5/5 strength in the upper and lower extremities. Cranial nerves intact. Result Diagram: 01/29/1841 01/30/18 0546 Assessment and Plan Problem List: (1) Intracranial hemorrhage ICD Codes: I62.9 - Nontraumatic intracranial hemorrhage, unspecified Status: Acute Plan: Patient is neurologically stable. Continue with therapy services. Begin discharge planning. Will refer patient to inpatient rehabilitation. (2) Severe oral pharyngeal dysphagia, high aspiration risk Status: Acute Plan: Improving. Continue with speech therapy and pured diet with honey thick liquids. Once patient taking adequate nutrition, can discontinue IV fluids (3) Hypokalemia ICD Codes: E87.6 - Hypokalemia Status: Acute Plan: Potassium level better but still low. Patient will be given additional IV potassium bolus this morning. Will continue with oral potassium supplement and follow potassium level (4) Diarrhea ICD Codes: R19.7 - Diarrhea, unspecified Status: Acute Plan: Improved. Will follow. (5) Hypertension ICD Codes: I10 - Essential (primary) hypertension Status: Acute Plan: Keep systolic blood pressure less than 140. Will continue with amlodipine and add losartan 50 mg daily. Clonidine as needed for elevated blood pressure. (6) Hypothyroidism Status: Chronic Plan: Continue levothyroxine (7) Idiopathic nonfamilial dystonia Status: Chronic Plan: Continue carbamazepine (8) Insomnia ICD Codes: G47.00 - Insomnia, unspecified Status: Chronic Plan: She has chronic insomnia. She has been using temazepam for years. Patient receiving low dose of temazepam. Discharge Planning Anticipate patient will be discharged by the end of the week. Will make referral to inpatient rehabilitation. If not accepted, will need SNF placement Problem Qualifiers (1) Diarrhea: Qualified Codes: R19.7 - Diarrhea, unspecified (2) Hypertension: Qualified Codes: I10 - Essential (primary) hypertension (3) Insomnia: Qualified Codes: G47.00 - Insomnia, unspecified Shant Stringer MD Jan 30, 2018 08:53
[2018-01-30] MEDS: POTASSIUM CHLORIDE 25 MEQ EFFERVESCENT TAB NG SCH ×2 (08:59→20:57)
[2018-01-30] MEDS: PANTOPRAZOLE SODIUM 40 MG VIAL IV PUSH SCH (08:59)
[2018-01-30] MEDS: SODIUM CHLORIDE 0.9% FLUSH 10 ML FLUSH IV FLUSH SCH ×2 (08:59→20:57)
[2018-01-30] MEDS: carBAMazepine SUSP 200 MG/10 ML UDC NG SCH ×2 (09:00→20:58)
[2018-01-30] MEDS: ARTIFICIAL TEARS OPTH SOLN 15 ML BTL EACH EYE SCH ×3 (09:00→17:32)
[2018-01-30] MEDS: amLODIPine BESYLATE 5 MG TAB PO SCH (09:00)
[2018-01-30] MEDS: LOSARTAN 50 MG TAB PO SCH (09:04)
[2018-01-30] MEDS: POTASSIUM CHLOR 20 MEQ PREMIX 100 ML IV SCH ×2 (09:05→11:25)
[2018-01-30] MEDS: LOPERAMIDE HCL SOLN 2 MG/10 ML UDC NG PRN ×2 (09:25→15:00)
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
[2018-01-30] MEDS: NS + KCL 40 MEQ INJ 1,000 ML IV SCH (12:30)
[2018-01-30] MEDS: cloNIDine HCL 0.1 MG TAB NG PRN ×2 (12:49→20:57)
[2018-01-30] MEDS: TEMAZEPAM 7.5 MG CAP PO SCH (22:23)
[2018-01-31] VITALS: BP 148/62; PULSE 86; RESP 16; TEMP 98.2; O2SAT 98
[2018-01-31] MEDS: CHLORHEXIDINE GLUCONATE 2 % 1 PACK (2 CLOTHS) TOP SCH ×2 (03:36→20:19)
[2018-01-31 04:00] VITALS: BP 152/65; PULSE 92; RESP 16; O2SAT 96
[2018-01-31] MEDS: INSULIN NovoLIN REGULAR SUPPLEMENTAL SCALE SQ SCH ×4 (05:28→17:19)
[2018-01-31] MEDS: cloNIDine HCL 0.1 MG TAB NG PRN ×2 (05:28→16:20)
[2018-01-31 06:03] LABS: BICARBONATE 21.4 MEQ/L (21.0-32.0); CALCIUM 8.1 MG/DL (8.5-10.1); CREATININE 0.6 MG/DL (0.50-1.00)
[2018-01-31] MEDS: CHLORHEXIDINE 0.12% (ORAL KIT) 15 ML CUP MT SCH ×2 (07:26→20:18)
[2018-01-31] MEDS: ARTIFICIAL TEARS OPTH SOLN 15 ML BTL EACH EYE SCH ×3 (07:28→16:57)
[2018-01-31] MEDS: SODIUM CHLORIDE 0.9% FLUSH 10 ML FLUSH IV FLUSH SCH ×2 (07:29→20:18)
[2018-01-31] MEDS: PANTOPRAZOLE SODIUM 40 MG VIAL IV PUSH SCH (08:11)
[2018-01-31] MEDS: POTASSIUM CHLORIDE 25 MEQ EFFERVESCENT TAB NG SCH ×2 (08:12→20:17)
[2018-01-31] MEDS: LOSARTAN 50 MG TAB PO SCH ×2 (08:12→20:17)
[2018-01-31] MEDS: amLODIPine BESYLATE 5 MG TAB PO SCH (08:13)
[2018-01-31] MEDS: LOPERAMIDE HCL SOLN 2 MG/10 ML UDC NG PRN (08:13)
[2018-01-31] MEDS: carBAMazepine SUSP 200 MG/10 ML UDC NG SCH ×2 (08:14→20:19)
[2018-01-31 09:04] VITALS: BP 135/68; PULSE 89; RESP 20; TEMP 97.5; O2SAT 96
--- NOTE | 2018-01-31 09:22 | HHI.PR ---
Subjective Remarks Patient was made n.p.o. by speech therapy again yesterday. She had refused her enteral feedings yesterday but agrees to resume them today. She denies any chest pain, shortness of breath, nausea or vomiting. Diarrhea has improved. She has had no abdominal pain. Systolic blood pressure still elevated. Receiving amlodipine and losartan. Current Medications Medications (Trade) Dose Ordered Sig/Vicente Route Start Time Stop Time Status Last Admin (D50w (Vial) Inj) 50 ml UNSCH PRN IV PUSH 01/23/18 19:45 01/25/18 04:16 (Glucagon Inj) 1 mg UNSCH PRN OTHER 01/23/18 19:45 (NovoLIN R SUPPLEMENTAL SCALE) 1 Q6HR SQ 01/24/18 00:00 (Peridex 0.12% Liq) 15 ml BID@08,20 MT 01/23/18 20:00 01/28/18 08:00 (NS Flush) 2 ml UNSCH PRN IV FLUSH 01/23/18 20:00 (NS Flush) 2 ml BID IV FLUSH 01/23/18 21:00 01/30/18 08:59 (Tylenol) 650 mg Q6H PRN NG 01/23/18 20:00 (Protonix Inj) 40 mg DAILY IV PUSH 01/24/18 09:00 01/31/18 08:11 (Tears Naturale Opth Soln) 1 drop TID EACH EYE 01/24/18 09:00 01/29/18 12:20 (Zofran Inj) 4 mg Q6H PRN IV PUSH 01/23/18 20:00 01/27/18 18:06 (Albuterol Neb) 2.5 mg Q2HR NEB PRN INH 01/23/18 20:00 01/28/18 21:25 Miscellaneous Information 1 Q361D XX 01/23/18 20:00 (Chlorhexidine 2% Cloth) Taper DAILY@04 TOP 01/24/18 04:00 01/20/19 03:59 01/27/18 04:00 (Chlorhexidine 2% Cloth) 3 pack UNSCH PRN TOP 01/23/18 20:00 (Milk Of Magnesia Liq) 30 ml Q12H PRN PO 01/23/18 20:00 (Senokot) 17.2 mg Q12H PRN PO 01/23/18 20:00 (Dulcolax Supp) 10 mg DAILY PRN RECTAL 01/23/18 20:00 (Lactulose Liq) 30 ml DAILY PRN PO 01/23/18 20:00 (Pill Splitter) 1 ea UNSCH PRN OTHER 01/26/18 08:45 (Catapres) 0.1 mg Q8HR PRN NG 01/28/18 11:30 01/31/18 05:28 (Norvasc) 5 mg DAILY PO 01/29/18 13:15 01/31/18 08:13 (K-Lyte Cl Eff) 25 meq Q12HR NG 01/29/18 21:00 01/31/18 08:12 (Imodium Liq) 2 mg UNSCH PRN NG 01/29/18 13:15 01/31/18 08:13 (Restoril) 7.5 mg HS PO 01/29/18 21:00 01/29/18 20:31 (TEGretol LIQ) 100 mg Q12HR NG 01/29/18 21:00 01/31/18 08:14 Potassium Chloride/Sodium Chloride 1,000 ml @ 42 mls/hr [id number] IV 01/29/18 13:30 01/29/18 14:39 (Cozaar) 50 mg DAILY PO 01/30/18 09:00 01/31/18 08:12 Objective Vital Signs Date Time Temp Pulse Resp B/P (MAP) Pulse Ox O2 Delivery O2 Flow Rate FiO2 01/31/18 09:04 97.5 89 20 135/68 (90) 96 01/31/18 04:00 92 16 152/65 (94) 96 01/31/18 00:00 98.2 86 16 148/62 (90) 98 01/30/18 20:00 98.0 89 16 155/66 (95) 96 01/30/18 15:17 94 22 123/60 (81) 96 01/30/18 12:00 98.4 91 19 165/79 (107) 96 I/O 01/30/18 01/30/18 01/30/18 01/31/18 01/31/18 01/31/18 07:00 15:00 23:00 07:00 15:00 23:00 Intake Total 200 ml 400 ml Output Total 550 ml Balance -550 ml 200 ml 400 ml IV Total 200 ml Tube Feeding 0 ml Other 400 ml Output Urine Total 550 ml # Voids 3 3 # Bowel Movements 2 0 Cardiovascular: Regular rate and rhythm with soft systolic murmur Lungs clear to auscultation Abdomen: Soft, nontender, nondistended with bowel sounds present, no masses palpable Extremities: No edema or calf tenderness Neurologic examination: Unchanged Result Diagram: 01/29/18 0641 01/31/18 0436 Assessment and Plan Problem List: (1) Intracranial hemorrhage ICD Codes: I62.9 - Nontraumatic intracranial hemorrhage, unspecified Status: Acute Plan: Patient is neurologically stable. Continue with therapy services. (2) Severe oral pharyngeal dysphagia, high aspiration risk Status: Acute Plan: Patient was made n.p.o. again yesterday. Speech therapy to continue to work with patient. Will resume NG feeds today. If she is going to have a long- term dysphagia, may need to consider PEG tube. (3) Hypokalemia ICD Codes: E87.6 - Hypokalemia Status: Resolved Plan: Potassium level is now normal. Will follow. Continue with supplements (4) Diarrhea ICD Codes: R19.7 - Diarrhea, unspecified Status: Resolved Plan: Improved. Will follow. (5) Hypertension ICD Codes: I10 - Essential (primary) hypertension Status: Acute Plan: Will increase losartan 50 mg to 1 tablet twice daily. Continue with amlodipine. Cover elevated blood pressure readings with clonidine. (6) Hypothyroidism Status: Chronic Plan: Continue levothyroxine (7) Idiopathic nonfamilial dystonia Status: Chronic Plan: Continue carbamazepine (8) Insomnia ICD Codes: G47.00 - Insomnia, unspecified Status: Chronic Plan: She has chronic insomnia. She has been using temazepam for years. Patient receiving low dose of temazepam. Problem Qualifiers (1) Diarrhea: Qualified Codes: R19.7 - Diarrhea, unspecified (2) Hypertension: Qualified Codes: I10 - Essential (primary) hypertension (3) Insomnia: Qualified Codes: G47.00 - Insomnia, unspecified Shant Stringer MD Jan 31, 2018 09:22
[2018-01-31 12:22] VITALS: BP 129/67; PULSE 88; RESP 20; TEMP 98.7; O2SAT 94
[2018-01-31] MEDS: NS + KCL 40 MEQ INJ 1,000 ML IV SCH (12:47)
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
[2018-01-31 16:04] VITALS: BP 145/64; PULSE 86; RESP 20; TEMP 98.8; O2SAT 97
[2018-01-31] MEDS: TEMAZEPAM 7.5 MG CAP PO SCH (20:17)
[2018-01-31 22:15] VITALS: BP 149/70; PULSE 91; RESP 19; TEMP 99.3; O2SAT 93
[2018-02-01] VITALS: BP 136/65; PULSE 88; RESP 18; TEMP 97.7; O2SAT 93
[2018-02-01 04:00] VITALS: BP 144/66; PULSE 94; RESP 17; TEMP 98.1; O2SAT 92
[2018-02-01] MEDS: INSULIN NovoLIN REGULAR SUPPLEMENTAL SCALE SQ SCH ×4 (06:00→17:57)
[2018-02-01 08:20] LABS: BICARBONATE 23.3 MEQ/L (21.0-32.0); CALCIUM 8.1 MG/DL (8.5-10.1); CREATININE 0.62 MG/DL (0.50-1.00)
[2018-02-01 08:26] VITALS: BP 145/66; PULSE 89; RESP 18; TEMP 98.6; O2SAT 93
--- NOTE | 2018-02-01 08:56 | HHI.PR ---
Subjective Remarks Continues to be n.p.o. due to dysphasia. Blood pressure under better control with current medication. Patient reporting some low back pain overnight. She feels it is related to the bed. She was out of bed in a chair for short time yesterday but complained of dizziness. Bowels are moving. Urine output good. Tolerating NG feeds. Current Medications Medications (Trade) Dose Ordered Sig/Vicente Route Start Time Stop Time Status Last Admin (D50w (Vial) Inj) 50 ml UNSCH PRN IV PUSH 01/23/18 19:45 01/25/18 04:16 (Glucagon Inj) 1 mg UNSCH PRN OTHER 01/23/18 19:45 (NovoLIN R SUPPLEMENTAL SCALE) 1 Q6HR SQ 01/24/18 00:00 (Peridex 0.12% Liq) 15 ml BID@08,20 MT 01/23/18 20:00 01/31/18 20:18 (NS Flush) 2 ml UNSCH PRN IV FLUSH 01/23/18 20:00 (NS Flush) 2 ml BID IV FLUSH 01/23/18 21:00 01/30/18 08:59 (Tylenol) 650 mg Q6H PRN NG 01/23/18 20:00 01/31/18 20:17 (Protonix Inj) 40 mg DAILY IV PUSH 01/24/18 09:00 01/31/18 08:11 (Tears Naturale Opth Soln) 1 drop TID EACH EYE 01/24/18 09:00 01/29/18 12:20 (Zofran Inj) 4 mg Q6H PRN IV PUSH 01/23/18 20:00 01/27/18 18:06 (Albuterol Neb) 2.5 mg Q2HR NEB PRN INH 01/23/18 20:00 01/28/18 21:25 Miscellaneous Information 1 Q361D XX 01/23/18 20:00 (Chlorhexidine 2% Cloth) Taper DAILY@04 TOP 01/24/18 04:00 01/20/19 03:59 01/27/18 04:00 (Chlorhexidine 2% Cloth) 3 pack UNSCH PRN TOP 01/23/18 20:00 (Milk Of Magnesia Liq) 30 ml Q12H PRN PO 01/23/18 20:00 (Senokot) 17.2 mg Q12H PRN PO 01/23/18 20:00 (Dulcolax Supp) 10 mg DAILY PRN RECTAL 01/23/18 20:00 (Lactulose Liq) 30 ml DAILY PRN PO 01/23/18 20:00 (Pill Splitter) 1 ea UNSCH PRN OTHER 01/26/18 08:45 (Catapres) 0.1 mg Q8HR PRN NG 01/28/18 11:30 01/31/18 16:20 (Norvasc) 5 mg DAILY PO 01/29/18 13:15 01/31/18 08:13 (K-Lyte Cl Eff) 25 meq Q12HR NG 01/29/18 21:00 01/31/18 20:17 (Imodium Liq) 2 mg UNSCH PRN NG 01/29/18 13:15 01/31/18 08:13 (Restoril) 7.5 mg HS PO 01/29/18 21:00 01/31/18 20:17 (TEGretol LIQ) 100 mg Q12HR NG 01/29/18 21:00 01/31/18 20:19 Potassium Chloride/Sodium Chloride 1,000 ml @ 42 mls/hr [id number] IV 01/29/18 13:30 01/31/18 12:47 (Cozaar) 50 mg Q12HR PO 01/31/18 21:00 01/31/18 20:17 Objective Vital Signs Date Time Temp Pulse Resp B/P (MAP) Pulse Ox O2 Delivery O2 Flow Rate FiO2 02/01/18 08:26 98.6 89 18 145/66 (92) 93 02/01/18 04:00 98.1 94 17 144/66 (92) 92 02/01/18 00:00 97.7 88 18 136/65 (88) 93 01/31/18 22:15 99.3 91 19 149/70 (96) 93 01/31/18 16:04 98.8 86 20 145/64 (91) 97 01/31/18 12:22 98.7 88 20 129/67 (87) 94 01/31/18 09:04 97.5 89 20 135/68 (90) 96 I/O 01/31/18 01/31/18 01/31/18 02/01/18 02/01/18/25/18 07:00 15:00 23:00 07:00 15:00 23:00 Intake Total 400 ml 424 ml Balance 400 ml 424 ml Intake Oral 0 ml Tube Feeding 0 ml 324 ml Tube Irrigant 100 ml Other 400 ml # Voids 6 7 2 # Bowel Movements 0 0 0 Cardiovascular: Regular rate and rhythm Lungs: Clear to auscultation Abdomen: Soft, nontender and nondistended with bowel sounds present Extremities: No edema Neurologic examination: Unchanged. Result Diagram: 01/29/18 0641 02/01/18 0658 Assessment and Plan Problem List: (1) Intracranial hemorrhage ICD Codes: I62.9 - Nontraumatic intracranial hemorrhage, unspecified Status: Acute Plan: Patient is neurologically stable. Continue with therapy services. (2) Severe oral pharyngeal dysphagia, high aspiration risk Status: Acute Plan: The patient has remained n.p.o. due to the severe dysphasia. I discussed with her that she would benefit from PEG tube placement. I believe that the dysphasia will resolve as the intracranial hemorrhage resolves. She will need enteral feedings for the next several weeks. I explained to her that an NG tube cannot remain in place that long. She states that she will consider PEG tube placement and let me know by tomorrow. (3) Hypokalemia ICD Codes: E87.6 - Hypokalemia Status: Resolved Plan: We will follow potassium level. Continue supplement (4) Diarrhea ICD Codes: R19.7 - Diarrhea, unspecified Status: Resolved Plan: Improved. Will follow. (5) Hypertension ICD Codes: I10 - Essential (primary) hypertension Status: Acute Plan: Blood pressure under better control. Continue with current medication and cover elevated blood pressure readings with clonidine. (6) Hypothyroidism Status: Chronic Plan: Continue levothyroxine (7) Idiopathic nonfamilial dystonia Status: Chronic Plan: Continue carbamazepine (8) Insomnia ICD Codes: G47.00 - Insomnia, unspecified Status: Chronic Plan: Sleeping well with low-dose temazepam. Discharge Planning I spoke with case management. She is going to inquire whether [facility] would take the patient with the NG tube. The best option would be for the patient have a PEG tube placed prior to transfer. Once patient makes decision about enteral feedings, can finalize timing for transfer to [facility]. Problem Qualifiers (1) Diarrhea: Qualified Codes: R19.7 - Diarrhea, unspecified (2) Hypertension: Qualified Codes: I10 - Essential (primary) hypertension (3) Insomnia: Qualified Codes: G47.00 - Insomnia, unspecified Shant Stringer MD Feb 01, 2018 08:56
[2018-02-01] MEDS: POTASSIUM CHLORIDE 25 MEQ EFFERVESCENT TAB NG SCH ×2 (09:00→20:59)
[2018-02-01] MEDS: SODIUM CHLORIDE 0.9% FLUSH 10 ML FLUSH IV FLUSH SCH ×2 (09:00→20:59)
[2018-02-01] MEDS: LOSARTAN 50 MG TAB PO SCH ×2 (09:00→20:59)
[2018-02-01] MEDS: PANTOPRAZOLE SODIUM 40 MG VIAL IV PUSH SCH (09:00)
[2018-02-01] MEDS: amLODIPine BESYLATE 5 MG TAB PO SCH (09:00)
[2018-02-01] MEDS: carBAMazepine SUSP 200 MG/10 ML UDC NG SCH ×2 (09:01→21:00)
[2018-02-01] MEDS: CHLORHEXIDINE 0.12% (ORAL KIT) 15 ML CUP MT SCH ×2 (09:10→20:59)
[2018-02-01] MEDS: ARTIFICIAL TEARS OPTH SOLN 15 ML BTL EACH EYE SCH ×3 (09:10→17:57)
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
[2018-02-01 12:00] VITALS: BP 152/86; PULSE 107; RESP 18; TEMP 98.1; O2SAT 93
[2018-02-01] MEDS: NS + KCL 40 MEQ INJ 1,000 ML IV SCH (13:21)
--- NOTE | 2018-02-01 15:13 | HHI.HCPN ---
Reason for visit a. To assist with evaluation and management of symptoms including: Dysphagia , dyspnea b. To assist medical decision maker(s) with: better understanding of current medical conditions; weighing benefits/burdens of medical treatment options; making medical treatment decisions. . Subjective/Interval History Patient seen today to follow up on dyspnea, dysphagia. s/p admission as stroke alert, +hemorrhage in the anterior cerebellar vermis, she was intubated--> extubated 01/27. Has had ongoing dysphagia, aphasia. ST following. She has also had complaints of generalized dizziness. Chemistry 02/[address] continues to note some aspiration risks, with some coughing demonstrated with exam. Exam today recommended barium swallow evaluation. Continued n.p.o. status. Seen today in her room, no visitors present. She is alert, oriented appears to have reasonable insight into hospitalization. She tells me the speech therapist saw her today and said she did okay with her swallowing but that she wanted to get a CT scan (ST in fact recommended barium swallow). She said the therapist told her depending on those results it may be determined that she can or cannot have oral diet. Review with her aspiration concerns and Dobbhoff feeding in place. She indicates she understands the tube feeding and she wishes to continue with the tube feeding. Review with her possibility of requiring a PEG tube and potential benefits burdens of that and that it could potentially be temporary if her dysphasia improved. She indicates that the other doctors were "more optimistic "regarding her not needing a feeding tube. I advised the she may not need one long-term but if she continues to demonstrate dysphagia would not be safe for her to take oral diet. Review potential respiratory/pulmonary complications she would encounter if she continue to try to take oral with significant dysphasia. She has questions about using a PEG tube longer-term answer them to the best of my ability. She indicates that she would probably want to proceed with the PEG tube if it was indicated in order to meet her caloric needs and continue with her recovery. I did review with her that she has the right to refuse PEG tube placement which would limit her ability for a full recovery if she is not able to meet caloric needs. ROS negativeshe denies pain. Denies shortness of breath. I do observe occasional cough, she tells me it is intermittent and it comes and goes she is not bringing anything up. She denies any GI complaints no nausea No feeling of heartburn or GI discomfort. Denies swelling. Feels her general strength is improving. Feels her speech is improving. Ask her if she has been in touch with her sons, she indicates she has been communicating with them but I can call them if I want to give them an update. . Family/friend interactions I attempted to call patient sons per her request, Meet moreno was unable to leave a message phone just rang. On Mayco moreno I left a voicemail with my contact information. . Advance Directives Living Will: Completed, but not made available Health Care Surrogate: Completed, but not made available Advance Directive Specifics Health Care Surrogate(s): The patient cannot recall whether she designated one son or all of them as her healthcare surrogate. The patient's son Gold also is unaware of who is designated as HCS, and the sons will try to find the advanced directives and bring them in. . Documented care wishes: The patient says she has a living will, and the patient's sons are trying to find that to bring it in. . Objective Vital Signs Date Time Temp Pulse Resp B/P (MAP) Pulse Ox O2 Delivery O2 Flow Rate FiO2 02/01/18 12:00 98.1 107 18 152/86 (108) 93 02/01/18 08:26 98.6 89 18 145/66 (92) 93 02/01/18 04:00 98.1 94 17 144/66 (92) 92 02/01/18 00:00 97.7 88 18 136/65 (88) 93 01/31/18 22:15 99.3 91 19 149/70 (96) 93 01/31/18 16:04 98.8 86 20 145/64 (91) 97 Intake & Output 02/01/18 02/01/18 07:00 19:00 Intake Total 0 ml Balance 0 ml Intake Oral 0 ml # Voids 4 # Bowel Movements 0 Physical Exam CONSTITUTIONAL/GENERAL: This is an elderly, weak patient, s alert, no distress TUBES/LINES/DRAINS: Peripheral IV upper extremity, Dobbhoff to left nare SKIN: No jaundice, rashes, or lesions. Few areas scattered ecchymoses on upper extremities. Skin warm and dry HEAD: Atraumatic. Normocephalic. EYES: Pupils reactive. No scleral icterus. No injection or drainage. She has left gaze much of the time. CARDIOVASCULAR: Regular rate and rhythm without murmur. No JVD. Peripheral pulses symmetric. RESPIRATORY/CHEST: Symmetric, unlabored respirations. On room air. Clear to auscultation. Breath sounds equal bilaterally. GASTROINTESTINAL: Abdomen soft, non-tender, nondistended. No hepato-splenomegaly , or palpable masses. No guarding. Bowel sounds present. Tube feed infusing Via Dobbhoff tube GENITOURINARY: Without palpable bladder distension. MUSCULOSKELETAL: Extremities without clubbing, cyanosis, or edema. No joint tenderness or effusion noted. Left lower extremity generally larger than right lower extremity. NEUROLOGICAL: Awake and alert, oriented 3. Cooperative. + Dystonia RUE. moves all extremities equally/bilaterally. PSYCHIATRIC: No obvious anxiety/depression. no apparent hallucinations or other psychotic thought process. . Diagnostic Tests Laboratory Laboratory Tests Test 01/30/18 05:46 01/31/18 04:36 02/01/18 06:58 Blood Urea Nitrogen 11 MG/DL (7-18) 12 MG/DL (7-18) 13 MG/DL (7-18) Creatinine 0.47 MG/DL (0.50-1.00) 0.60 MG/DL (0.50-1.00) 0.62 MG/DL (0.50-1.00) Random Glucose 92 MG/DL (74-106) 90 MG/DL (74-106) 126 MG/DL (74-106) Calcium Level 8.3 MG/DL (8.5-10.1) 8.1 MG/DL (8.5-10.1) 8.1 MG/DL (8.5-10.1) Sodium Level 140 MEQ/L (136-145) 142 MEQ/L (136-145) 144 MEQ/L (136-145) Potassium Level 3.2 MEQ/L (3.5-5.1) 4.6 MEQ/L (3.5-5.1) 4.1 MEQ/L (3.5-5.1) Chloride Level 107 MEQ/L (98-107) 111 MEQ/L (98-107) 111 MEQ/L (98-107) Carbon Dioxide Level 20.7 MEQ/L (21.0-32.0) 21.4 MEQ/L (21.0-32.0) 23.3 MEQ/L (21.0-32.0) Anion Gap 12 MEQ/L (5-15) 10 MEQ/L (5-15) 10 MEQ/L (5-15) Estimat Glomerular Filtration Rate 129 ML/MIN (>89) 97 ML/MIN (>89) 94 ML/MIN (>89) Result Diagram: 01/29/18 0641 02/01/18 0658 Imaging Last Impressions Head CT 01/28/18 0600 Signed Impressions: Service Date/Time: Sunday, January 28, 2018 03:57 - CONCLUSION: Stable posterior cranial fossa hemorrhage. Bimal Victoria Jr., MD Abdomen X-Ray 01/28/18 0000 Signed Impressions: Service Date/Time: Sunday, January 28, 2018 13:15 - CONCLUSION: 1. Weighted feeding tube projects over the expected location of the gastric lumen. 2. Nonobstructive bowel gas pattern. 3. Left basilar consolidation/effusion. Gerry Karimi MD Chest X-Ray 01/24/18 0000 Signed Impressions: Service Date/Time: Wednesday, January 24, 2018 03:27 - CONCLUSION: No significant change mild patchy airspace opacities of the left mid and lower lung. Brayan Ann MD Neck CTA 01/23/18 1933 Signed Impressions: Service Date/Time: Tuesday, January 23, 2018 18:47 - CONCLUSION: Occlusion of the left internal carotid artery. Brayan Marion MD Head CTA 01/23/187 Signed Impressions: Service Date/Time: Tuesday, January 23, 2018 18:47 - CONCLUSION: Occlusion of the left internal carotid artery. An aneurysm is not seen. Brayan Marion MD Procedures INTUBATED 01/23/18 EXTUBATED 01/27/18 Dobbhoff placed . Assessment and Plan Disease Oriented Problem List: (1) Acute hemorrhage, vermis cerebellum (2) Severe oral pharyngeal dysphagia, high aspiration risk (3) Hypertensive emergency (4) COPD (5) Carotid stenosis, occluded left carotid for several years (6) Hyperlipidemia (7) Idiopathic nonfamilial dystonia (8) Irritable bowel syndrome (9) Seizure disorder (10) Hypothyroidism (11) Depression Symptom Scale: (1) Dyspnea 0-10 Scale: Unable to quantify Comment: Initially intubated for respiratory failure, inability to protect airway--status post extubation 01/27 tolerating room air; no apparent dyspnea (2) Pain 0-10 Scale: 0 (3) Dysphagia 0-10 Scale: Unable to quantify ("Severe oral pharyngeal dysphagia" per speech therapy 01/27/18) Pertinent Non-Medical Issues Psychosocial: , lives with 2 of her 3 sons. Spiritual: Anabaptist, would like a visit from the [facility]. Legal: The patient is alert, oriented, and has reasonable insight and judgment with respect to her medical condition and risks. I believe she has capacity for decision-making at this time. She reports that she has a living will and healthcare surrogate, but is unsure which of her sons (or all of them) are designated as HCS, so the sons are to bring the paperwork in. If there is no healthcare surrogate specified, then the decision making would fall to the majority of her 3 available and willing sons, Gold, Gilmar, and Horacio. Ethical issues impacting care: None . Important Contacts Son: Gold Nagy [phone] Son: Gilmar Ortizsage [phone] . Prognosis Overall, the patient's prognosis is quite guarded. If the severe dysphagia does not resolve, she will undoubtedly aspirated and have further pneumonia and respiratory compromise (with previously existing COPD). She will be appropriate for hospice services if the goals become completely comfort oriented. . Code Status: Full Code Plan * FULL CODE, as per patient 01/27/18 * GOALS: Patient endorses overall she feels she is generally improving. She feels her swallowing is improving, and that speech therapy has recommended imaging to further evaluate. She would agree to proceed with a PEG tube if it was medically indicated, she wants to be able to get the calories required in order to continue her recovery. * DECISION-MAKING: The patient is alert, oriented, and has reasonable insight and judgment with respect to her medical condition and risks. I believe she has capacity for decision-making at this time. She reports that she has a living will and healthcare surrogate, but is unsure which of her sons (or all of them) are designated as HCS, so the sons are to bring the paperwork in. If there is no healthcare surrogate specified, then the decision making would fall to the majority of her 3 available and willing sons, Gold, Gilmar, and Horacio. * SYMPTOMS: == The dysphagia is profound, and a Dobbhoff has been placed for nutrition, hydration. ST continues to follow , patient continues to have some aspiration concerns and difficulties with swallowing, ST has recommended barium swallow evaluation. == Has endorsed generalized pain: Her pain is mild arthritic discomfort, and she generally does not require medication intervention for that. She denies pain today at time of my visit. == She remains at high risk for aspiration and dyspnea or respiratory failure, and that can be managed, of course, with reintubation as she is requesting now, or with judicious dosing of opiates and benzodiazepine if the goals become more comfort oriented. * Palliative Care will continue to follow the patient during this hospitalization. . Time Spent Total Floor Time (mins): 20 (Chart review, physical exam, discussion with patient, called family) Attestation To help prompt me to consider important information that might be impacting today's encounter and assessment, information from prior notes written by myself or my colleagues may have been "brought forward" into today's note. My signature on this note, however, is an attestation that I personally performed the exam, history, and/or decision-making noted today, and, unless otherwise indicated, the interactions with patient, family, and staff as well as the review of records all occurred today. I also attest that the listed assessment and stated plan reflect my best clinical judgment today based on the combination of historical information, prior notes, and today's exam/ interactions. When time spent is documented, it refers only to time spent today by the signer, or if indicated, combined time spent today by collaborating physician/nurse practitioner. Sugey Orozco Feb 01, 2018 15:13
[2018-02-01 16:00] VITALS: BP 159/79; PULSE 94; RESP 18; TEMP 99.7; O2SAT 96
[2018-02-01] MEDS: traMADol HCL 50 MG TAB PEG PRN (17:46)
[2018-02-01 19:52] VITALS: BP 146/71; PULSE 95; RESP 18; TEMP 98.4; O2SAT 93
[2018-02-01] MEDS: TEMAZEPAM 7.5 MG CAP PO SCH (20:58)
[2018-02-02 01:00] VITALS: BP 119/76; PULSE 88; RESP 19; TEMP 98.8; O2SAT 96
[2018-02-02] MEDS: CHLORHEXIDINE GLUCONATE 2 % 1 PACK (2 CLOTHS) TOP SCH (04:00)
[2018-02-02 04:30] VITALS: BP 125/89; PULSE 88; RESP 19; TEMP 98.3; O2SAT 95
[2018-02-02] MEDS: INSULIN NovoLIN REGULAR SUPPLEMENTAL SCALE SQ SCH ×4 (06:00→17:53)
[2018-02-02 08:00] VITALS: BP 184/89; PULSE 91; RESP 22; TEMP 98; O2SAT 95
[2018-02-02] MEDS: CHLORHEXIDINE 0.12% (ORAL KIT) 15 ML CUP MT SCH ×2 (08:00→20:00)
--- NOTE | 2018-02-02 08:52 | HHI.PR ---
Subjective Remarks The patient complained of low back pain yesterday. Received tramadol which helped. Still remains n.p.o. due to dysphagia. She is scheduled for modified barium swallow this morning. She is tolerating enteral feedings at 40 cc an hour. Diarrhea has resolved. Having regular bowel movements. Urine output is good. Blood pressure under better control. Current Medications Medications (Trade) Dose Ordered Sig/Vicente Route Start Time Stop Time Status Last Admin (D50w (Vial) Inj) 50 ml UNSCH PRN IV PUSH 01/23/18 19:45 01/25/18 04:16 (Glucagon Inj) 1 mg UNSCH PRN OTHER 01/23/18 19:45 (NovoLIN R SUPPLEMENTAL SCALE) 1 Q6HR SQ 01/24/18 00:00 (Peridex 0.12% Liq) 15 ml BID@08,20 MT 01/23/18 20:00 02/01/18 20:59 (NS Flush) 2 ml UNSCH PRN IV FLUSH 01/23/18 20:00 (NS Flush) 2 ml BID IV FLUSH 01/23/18 21:00 02/01/18 20:59 (Tylenol) 650 mg Q6H PRN NG 01/23/18 20:00 01/31/18 20:17 (Protonix Inj) 40 mg DAILY IV PUSH 01/24/18 09:00 02/01/18 09:00 (Tears Naturale Opth Soln) 1 drop TID EACH EYE 01/24/18 09:00 01/29/18 12:20 (Zofran Inj) 4 mg Q6H PRN IV PUSH 01/23/18 20:00 01/27/18 18:06 (Albuterol Neb) 2.5 mg Q2HR NEB PRN INH 01/23/18 20:00 01/28/18 21:25 Miscellaneous Information 1 Q361D XX 01/23/18 20:00 (Chlorhexidine 2% Cloth) Taper DAILY@04 TOP 01/24/18 04:00 01/20/19 03:59 01/27/18 04:00 (Chlorhexidine 2% Cloth) 3 pack UNSCH PRN TOP 01/23/18 20:00 (Milk Of Magnesia Liq) 30 ml Q12H PRN PO 01/23/18 20:00 (Senokot) 17.2 mg Q12H PRN PO 01/23/18 20:00 (Dulcolax Supp) 10 mg DAILY PRN RECTAL 01/23/18 20:00 (Lactulose Liq) 30 ml DAILY PRN PO 01/23/18 20:00 (Pill Splitter) 1 ea UNSCH PRN OTHER 01/26/18 08:45 (Catapres) 0.1 mg Q8HR PRN NG 01/28/18 11:30 01/31/18 16:20 (Norvasc) 5 mg DAILY PO 01/29/18 13:15 02/01/18 09:00 (K-Lyte Cl Eff) 25 meq Q12HR NG 01/29/18 21:00 02/01/18 20:59 (Imodium Liq) 2 mg UNSCH PRN NG 01/29/18 13:15 01/31/18 08:13 (Restoril) 7.5 mg HS PO 01/29/18 21:00 02/01/18 20:58 (TEGretol LIQ) 100 mg Q12HR NG 01/29/18 21:00 02/01/18 21:00 Potassium Chloride/Sodium Chloride 1,000 ml @ 42 mls/hr [id number] IV 01/29/18 13:30 02/01/18 13:21 (Cozaar) 50 mg Q12HR PO 01/31/18 21:00 02/01/18 20:59 (Ultram) 50 mg Q8H PRN PEG 02/01/18 17:30 02/01/18 17:46 Objective Vital Signs Date Time Temp Pulse Resp B/P (MAP) Pulse Ox O2 Delivery O2 Flow Rate FiO2 02/02/18 04:30 98.3 88 19 125/89 (101) 95 02/02/18 01:00 98.8 88 19 119/76 (90) 96 02/01/18 19:52 98.4 95 18 146/71 (96) 93 02/01/18 16:00 99.7 94 18 159/79 (105) 96 02/01/18 12:00 98.1 107 18 152/86 (108) 93 I/O 02/01/18 02/01/18 02/01/18 02/02/18 02/02/18 02/02/18 07:00 15:00 23:00 07:00 15:00 23:00 Intake Total 0 ml Balance 0 ml Intake Oral 0 ml # Voids 2 4 1 5 # Bowel Movements 0 0 Cardiovascular: Regular rate and rhythm Lungs: Clear to auscultation Abdomen: Soft, nontender, nondistended with bowel sounds present Extremities: No edema or calf tenderness Neurologic examination: Awake and alert. Oriented to person place but not to time. Speech reveals some dysarthria but improved from earlier in hospital course. Right upper extremity decreased fine motor control which is a chronic finding. 5/5 strength in the upper and lower extremities. Result Diagram: 01/29/18 0641 02/01/18 0658 Assessment and Plan Problem List: (1) Intracranial hemorrhage ICD Codes: I62.9 - Nontraumatic intracranial hemorrhage, unspecified Status: Acute Plan: Patient is neurologically stable. Continue with therapy services. (2) Severe oral pharyngeal dysphagia, high aspiration risk Status: Acute Plan: Patient will undergo modified barium swallow today. Based on results and make further recommendations. I have discussed with the patient again today that if she fails the modified barium swallow, she will need to consider PEG tube placement for enteral feedings. Her dysphagia will likely improve as the blood in her brain is resorbed. She will need continued speech therapy to help with the dysphasia. She is aware that he had NG tube cannot stay in place indefinitely. If she does not wish to pursue a PEG tube, she may wish to consider comfort measures only. (3) Hypokalemia ICD Codes: E87.6 - Hypokalemia Status: Resolved Plan: We will follow potassium level. Continue supplement (4) Diarrhea ICD Codes: R19.7 - Diarrhea, unspecified Status: Resolved Plan: Improved. Will follow. (5) Hypertension ICD Codes: I10 - Essential (primary) hypertension Status: Acute Plan: Blood pressure under better control. Continue with current medication and cover elevated blood pressure readings with clonidine. (6) Hypothyroidism Status: Chronic Plan: Continue levothyroxine (7) Idiopathic nonfamilial dystonia Status: Chronic Plan: Continue carbamazepine (8) Insomnia ICD Codes: G47.00 - Insomnia, unspecified Status: Chronic Plan: Sleeping well with low-dose temazepam. (9) Lumbar spondylosis ICD Codes: M47.816 - Spondylosis without myelopathy or radiculopathy, lumbar region Status: Chronic Plan: Patient complaining of intermittent back pain. Receiving tramadol as needed. Assessment and Plan I will be out of town beginning February 03, 2018 at 8 AM through February 20, 2018 at 8 AM. [facility] will be covering Discussed Condition With Patient's brother who was at bedside. Discharge Planning The patient is tentatively accepted at [facility] rehabilitation once NG tube is out. Problem Qualifiers (1) Diarrhea: Qualified Codes: R19.7 - Diarrhea, unspecified (2) Hypertension: Qualified Codes: I10 - Essential (primary) hypertension (3) Insomnia: Qualified Codes: G47.00 - Insomnia, unspecified Shant Stringer MD Feb 02, 2018 08:52
[2018-02-02] MEDS: ARTIFICIAL TEARS OPTH SOLN 15 ML BTL EACH EYE SCH ×2 (09:00→18:00)
[2018-02-02] MEDS: carBAMazepine SUSP 200 MG/10 ML UDC NG SCH ×2 (09:00→22:30)
[2018-02-02] MEDS: SODIUM CHLORIDE 0.9% FLUSH 10 ML FLUSH IV FLUSH SCH ×2 (09:00→21:00)
[2018-02-02] MEDS: LOSARTAN 50 MG TAB PO SCH ×2 (09:00→22:29)
--- NOTE | 2018-02-02 10:15 | RADRPT ---
EXAM DATE/TIME: 02/02/2018 00:00 [facility] COMPARISON: No previous studies available for comparison. INDICATIONS : Dysphagia FLUORO TIME: 1.3 minutes IMAGE COUNT: 0 CONTRAST: Dose as prescribed by speech pathologist. MEDICAL HISTORY : Gastroesophageal reflux disease. Chronic obstructive pulmonary disease. Congestive heart failure. intracranial bleed SURGICAL HISTORY : None. ENCOUNTER: Subsequent ACUITY: 2 days PAIN SCORE: Non-responsive. LOCATION: Bilateral esophagus FINDINGS: A modified barium swallow was performed with speech pathology. Patient was given a variety of liquids to swallow. For a full detailed report, see report by the speech pathologist. CONCLUSION: Normal examination. Navdeep Ko MD on February 02, 2018 at 10:12 Board Certified Radiologist. This report was verified electronically.
[2018-02-02] MEDS: PANTOPRAZOLE SODIUM 40 MG VIAL IV PUSH SCH (10:46)
[2018-02-02] MEDS: POTASSIUM CHLORIDE 25 MEQ EFFERVESCENT TAB NG SCH ×2 (10:47→22:45)
[2018-02-02] MEDS: amLODIPine BESYLATE 5 MG TAB PO SCH (10:51)
[2018-02-02 12:29] VITALS: BP 149/84; PULSE 94; RESP 18; TEMP 98.2; O2SAT 98
[2018-02-02] MEDS: cloNIDine HCL 0.1 MG TAB NG PRN (14:03)
[2018-02-02 16:50] VITALS: BP 122/67; PULSE 91; RESP 18; TEMP 98.3; O2SAT 95
[2018-02-02 20:00] VITALS: BP 144/65; PULSE 96; RESP 18; TEMP 97.8; O2SAT 94
[2018-02-02] MEDS: TEMAZEPAM 7.5 MG CAP PO SCH (22:29)
[2018-02-02] MEDS: NS + KCL 40 MEQ INJ 1,000 ML IV SCH (22:46)
[2018-02-03] VITALS: BP 132/64; PULSE 92; RESP 18; TEMP 97.4; O2SAT 94
[2018-02-03 04:00] VITALS: BP 173/82; PULSE 91; RESP 18; TEMP 97.6; O2SAT 94
[2018-02-03] MEDS: CHLORHEXIDINE GLUCONATE 2 % 1 PACK (2 CLOTHS) TOP SCH (04:00)
[2018-02-03] MEDS: INSULIN NovoLIN REGULAR SUPPLEMENTAL SCALE SQ SCH ×4 (06:00→18:00)
[2018-02-03 07:06] LABS: AUTOMATED NEUTROPHIL # 6.9 TH/MM3 (1.8-7.7); BASOPHIL # 0.1 TH/MM3 (0-0.2); EOSINOPHIL # 0.5 TH/MM3 (0-0.4); EOSINOPHIL % 4.9 % (0.0-4.0); HEMATOCRIT 37.9 % (35.0-46.0); HEMOGLOBIN 12.8 GM/DL (11.6-15.3); LYMPH % 11.8 % (9.0-44.0); LYMPHOCYTE # 1.1 TH/MM3 (1.0-4.8); MEAN CELL VOLUME 96.2 FL (80.0-100.0); MEAN CORPUSCULAR HEMOGLOBIN 32.4 PG (27.0-34.0); MEAN CORPUSCULAR HGB CONC 33.7 % (32.0-36.0); MEAN PLATELET VOLUME 8.1 FL (7.0-11.0); MONO % 8.4 % (0.0-8.0); MONOCYTE # 0.8 TH/MM3 (0-0.9); NEUT % 73.9 % (16.0-70.0); PLATELET COUNT 248 TH/MM3 (150-450); RED BLOOD COUNT 3.94 MIL/MM3 (4.00-5.30); RED CELL DISTRIBUTION WIDTH 14.2 % (11.6-17.2); WHITE BLOOD COUNT 9.4 TH/MM3 (4.0-11.0)
[2018-02-03 07:28] LABS: BICARBONATE 24.7 MEQ/L (21.0-32.0); CREATININE 0.62 MG/DL (0.50-1.00)
[2018-02-03 08:00] VITALS: BP 172/79; PULSE 93; RESP 18; TEMP 97.7; O2SAT 91
[2018-02-03] MEDS: CHLORHEXIDINE 0.12% (ORAL KIT) 15 ML CUP MT SCH ×2 (08:00→20:00)
[2018-02-03] MEDS: ARTIFICIAL TEARS OPTH SOLN 15 ML BTL EACH EYE SCH ×3 (09:00→18:00)
[2018-02-03] MEDS: LOSARTAN 50 MG TAB PO SCH ×2 (09:00→21:55)
[2018-02-03] MEDS: SODIUM CHLORIDE 0.9% FLUSH 10 ML FLUSH IV FLUSH SCH ×2 (09:00→21:00)
[2018-02-03] MEDS: carBAMazepine SUSP 200 MG/10 ML UDC NG SCH ×2 (09:00→21:55)
[2018-02-03] MEDS: PANTOPRAZOLE SODIUM 40 MG VIAL IV PUSH SCH (09:05)
[2018-02-03] MEDS: POTASSIUM CHLORIDE 25 MEQ EFFERVESCENT TAB NG SCH ×2 (09:06→21:54)
[2018-02-03] MEDS: amLODIPine BESYLATE 5 MG TAB PO SCH (09:06)
--- NOTE | 2018-02-03 11:13 | HHI.PR ---
Subjective Remarks n bed more awake and alert. Says she is eating better, however per nurse she was not eating much . Calorie count to assess of adequate PO intake and need for PEG tube. Discussed with the patient, Also pt. says doesn't have much appetite and also doesn't like the food. Objective Vitals Vital Signs Date Time Temp Pulse Resp B/P (MAP) Pulse Ox O2 Delivery O2 Flow Rate FiO2 02/03/18 08:00 97.7 93 18 172/79 (110) 91 Manual Cuff/Auscultation 02/03/18 04:00 97.6 91 18 173/82 (112) 94 02/03/18 00:00 97.4 92 18 132/64 (86) 94 02/02/18 20:00 97.8 96 18 144/65 (91) 94 02/02/18 16:50 98.3 91 18 122/67 (85) 95 02/02/18 12:29 98.2 94 18 149/84 (105) 98 I/O 02/02/18 02/02/18 02/02/18 02/03/18 02/03/18 02/03/18 07:00 15:00 23:00 07:00 15:00 23:00 Intake Total 0 ml 986 ml 287 ml Balance 0 ml 986 ml 287 ml Intake Oral 0 ml IV Total 986 ml Tube Irrigant 287 ml # Voids 5 2 # Bowel Movements 0 Result Diagram: 02/03/18 0615 02/03/18 0616 Imaging Last Impressions Modified Barium Swallow 02/02/18 0000 Signed Impressions: Service Date/Time: January 00:00 - CONCLUSION: Normal examination. Navdeep Ko MD Head CT 01/28/18 0600 Signed Impressions: Service Date/Time: Sunday, January 28, 2018 03:57 - CONCLUSION: Stable posterior cranial fossa hemorrhage. Bimal Victoria Jr., MD Abdomen X-Ray 01/28/18 0000 Signed Impressions: Service Date/Time: Sunday, January 28, 2018 13:15 - CONCLUSION: 1. Weighted feeding tube projects over the expected location of the gastric lumen. 2. Nonobstructive bowel gas pattern. 3. Left basilar consolidation/effusion. Gerry Karimi MD Chest X-Ray 01/24/18 0000 Signed Impressions: Service Date/Time: Wednesday, January 24, 2018 03:27 - CONCLUSION: No significant change mild patchy airspace opacities of the left mid and lower lung. Brayan Ann MD Neck CTA 01/23/18 1933 Signed Impressions: Service Date/Time: Tuesday, January 23, 2018 18:47 - CONCLUSION: Occlusion of the left internal carotid artery. Brayan Marion MD Head CTA 01/23/18 1827 Signed Impressions: Service Date/Time: Tuesday, January 23, 2018 18:47 - CONCLUSION: Occlusion of the left internal carotid artery. An aneurysm is not seen. Brayan Marion MD Objective Remarks GENERAL: 77 yo F appears in nad. CARDIOVASCULAR: Regular rate and rhythm. RESPIRATORY: No accessory muscle use. Clear to auscultation. Breath sounds equal bilaterally. GASTROINTESTINAL: Abdomen soft, non-tender, nondistended. Hepatic and splenic margins not palpable. MUSCULOSKELETAL: Extremities without clubbing, cyanosis, or edema. No obvious deformities. NEUROLOGICAL: Awake and alert. No obvious cranial nerve deficits. Motor grossly within normal limits. Dysarthria. Right upper extremity decreased fine motor control which is a chronic finding. PSYCHIATRIC: Appropriate mood and affect; insight and judgment normal. A/P Problem List: (1) Acute respiratory failure ICD Code: J96.00 - Acute respiratory failure, unspecified whether with hypoxia or hypercapnia (2) Intracranial hemorrhage ICD Code: I62.9 - Nontraumatic intracranial hemorrhage, unspecified Status: Acute (3) Hypertensive emergency ICD Code: I16.1 - Hypertensive emergency Status: Acute (4) Hypothyroidism ICD Code: E03.9 - Hypothyroidism, unspecified Status: Chronic (5) Dystonia ICD Code: G24.9 - Dystonia, unspecified Status: Chronic (6) Leukocytosis ICD Code: D72.829 - Elevated white blood cell count, unspecified Assessment and Plan (1) Intracranial hemorrhage ICD Codes: I62.9 - Nontraumatic intracranial hemorrhage, unspecified Status: Acute Plan: Patient is neurologically stable. Continue PT/OT/ST. (2) Severe oral pharyngeal dysphagia, high aspiration risk Status: Acute Plan: Modified barium swallow is normal. Do calorie count if eating well no need for PEG. Her dysphagia will likely improve as the blood in her brain is resorbed. She will need continued speech therapy to help with the dysphasia. She is aware that he had NG tube cannot stay in place indefinitely and also if fails calorie counting might consider PEG tube placement. If she does not wish to pursue a PEG tube, she may wish to consider comfort measures only. (3) Hypokalemia ICD Codes: E87.6 - Hypokalemia Status: Resolved Plan: We will follow potassium level. Continue supplement (4) Diarrhea ICD Codes: R19.7 - Diarrhea, unspecified Status: Resolved Plan: Improved. Will follow. (5) Hypertension ICD Codes: I10 - Essential (primary) hypertension Status: Acute Plan: Blood pressure under better control. Continue with current medication and cover elevated blood pressure readings with clonidine. (6) Hypothyroidism Status: Chronic Plan: Continue levothyroxine (7) Idiopathic nonfamilial dystonia Status: Chronic Plan: Continue carbamazepine (8) Insomnia ICD Codes: G47.00 - Insomnia, unspecified Status: Chronic Plan: Sleeping well with low-dose temazepam. (9) Lumbar spondylosis ICD Codes: M47.816 - Spondylosis without myelopathy or radiculopathy, lumbar region Status: Chronic Plan: Patient complaining of intermittent back pain. Receiving tramadol as needed. The patient is tentatively accepted at [facility] once NG tube is out. Will do calorie count to see if need for PEG tube. Passed barium swallow Will add MVTto help with appetite Problem Qualifiers (1) Acute respiratory failure: Qualified Codes: J96.00 - Acute respiratory failure, unspecified whether with hypoxia or hypercapnia (2) Hypothyroidism: Qualified Codes: E03.9 - Hypothyroidism, unspecified (3) Leukocytosis: Qualified Codes: D72.829 - Elevated white blood cell count, unspecified Yakelin Lemos MD Feb 03, 2018 11:13
[2018-02-03 12:00] VITALS: BP 125/69; PULSE 101; RESP 18; TEMP 97.9; O2SAT 94
[2018-02-03] MEDS: traMADol HCL 50 MG TAB PEG PRN ×2 (14:31→21:55)
[2018-02-03 16:00] VITALS: BP 167/84; PULSE 98; RESP 18; TEMP 98.3; O2SAT 93
[2018-02-03] MEDS: MULTIVITAMIN TAB PO SCH (16:00)
[2018-02-03 20:00] VITALS: BP 155/72; PULSE 100; RESP 18; TEMP 98.2; O2SAT 94
[2018-02-03] MEDS: TEMAZEPAM 7.5 MG CAP PO SCH (21:55)
[2018-02-04] VITALS: BP 168/77; PULSE 100; RESP 18; TEMP 97.6; O2SAT 95
[2018-02-04] MEDS: cloNIDine HCL 0.1 MG TAB NG PRN (01:09)
[2018-02-04] MEDS ORDERED: ACETAMINOPHEN/HYDROcodone 325 MG/5 MG TAB PO ONE (01:45)
[2018-02-04 04:00] VITALS: BP 132/67; PULSE 88; RESP 18; TEMP 98.2; O2SAT 94
[2018-02-04] MEDS: CHLORHEXIDINE GLUCONATE 2 % 1 PACK (2 CLOTHS) TOP SCH (04:00)
[2018-02-04] MEDS: NS + KCL 40 MEQ INJ 1,000 ML IV SCH (04:36)
[2018-02-04] MEDS: INSULIN NovoLIN REGULAR SUPPLEMENTAL SCALE SQ SCH ×5 (06:00→22:14)
--- NOTE | 2018-02-04 07:58 | HHI.PR ---
Subjective Remarks In the bed eating breakfast. Patient says she is eating better. No n/v/d/c. Calorie counting undergoing. No fever or chills. More awake and alert. No new motor deficit. No change in vision. Objective Vitals Vital Signs Date Time Temp Pulse Resp B/P (MAP) Pulse Ox O2 Delivery O2 Flow Rate FiO2 02/04/18 04:00 98.2 88 18 132/67 (88) 94 02/04/18 00:00 97.6 100 18 168/77 (107) 95 02/03/18 20:00 98.2 100 18 155/72 (99) 94 02/03/18 16:00 98.3 98 18 167/84 (111) 93 02/03/18 12:00 97.9 101 18 125/69 (87) 94 02/03/18 08:00 97.7 93 18 172/79 (110) 91 Manual Cuff/Auscultation I/O 02/03/18 02/03/18 02/03/18 02/04/18 02/04/18 02/04/18 07:00 15:00 23:00 07:00 15:00 23:00 Intake Total 287 ml 635 ml Balance 287 ml 635 ml IV Total 69 ml Tube Feeding 366 ml Tube Irrigant 287 ml Other 200 ml # Voids 2 4 # Bowel Movements 0 Result Diagram: 02/03/18 0615 02/03/18 0616 Imaging Last Impressions Modified Barium Swallow 02/02/18 0000 Signed Impressions: Service Date/Time: January 00:00 - CONCLUSION: Normal examination. Navdeep Ko MD Head CT 01/28/18 0600 Signed Impressions: Service Date/Time: Sunday, January 28, 2018 03:57 - CONCLUSION: Stable posterior cranial fossa hemorrhage. Bimal Victoria Jr., MD Abdomen X-Ray 01/28/18 0000 Signed Impressions: Service Date/Time: Sunday, January 28, 2018 13:15 - CONCLUSION: 1. Weighted feeding tube projects over the expected location of the gastric lumen. 2. Nonobstructive bowel gas pattern. 3. Left basilar consolidation/effusion. Gerry Karimi MD Chest X-Ray 01/24/18 0000 Signed Impressions: Service Date/Time: Wednesday, January 24, 2018 03:27 - CONCLUSION: No significant change mild patchy airspace opacities of the left mid and lower lung. Brayan Ann MD Neck CTA 01/23/18 1933 Signed Impressions: Service Date/Time: Tuesday, January 23, 2018 18:47 - CONCLUSION: Occlusion of the left internal carotid artery. Brayan Marion MD Head CTA 01/23/18 1827 Signed Impressions: Service Date/Time: Tuesday, January 23, 2018 18:47 - CONCLUSION: Occlusion of the left internal carotid artery. An aneurysm is not seen. Brayan Marion MD Objective Remarks GENERAL: 77 yo F appears in nad. CARDIOVASCULAR: Regular rate and rhythm. RESPIRATORY: No accessory muscle use. Clear to auscultation. Breath sounds equal bilaterally. GASTROINTESTINAL: Abdomen soft, non-tender, nondistended. Hepatic and splenic margins not palpable. MUSCULOSKELETAL: Extremities without clubbing, cyanosis, or edema. No obvious deformities. NEUROLOGICAL: Awake and alert. No obvious cranial nerve deficits. Motor grossly within normal limits. Dysarthria. Right upper extremity decreased fine motor control which is a chronic finding. PSYCHIATRIC: Appropriate mood and affect; insight and judgment normal. A/P Problem List: (1) Acute respiratory failure ICD Code: J96.00 - Acute respiratory failure, unspecified whether with hypoxia or hypercapnia (2) Intracranial hemorrhage ICD Code: I62.9 - Nontraumatic intracranial hemorrhage, unspecified Status: Acute (3) Hypertensive emergency ICD Code: I16.1 - Hypertensive emergency Status: Acute (4) Hypothyroidism ICD Code: E03.9 - Hypothyroidism, unspecified Status: Chronic (5) Dystonia ICD Code: G24.9 - Dystonia, unspecified Status: Chronic (6) Leukocytosis ICD Code: D72.829 - Elevated white blood cell count, unspecified Assessment and Plan (1) Intracranial hemorrhage ICD Codes: I62.9 - Nontraumatic intracranial hemorrhage, unspecified Status: Acute Plan: Patient is neurologically stable. Continue PT/OT/ST. (2) Severe oral pharyngeal dysphagia, high aspiration risk Status: Acute Plan: Modified barium swallow is normal. Do calorie count if eating well no need for PEG. Her dysphagia will likely improve as the blood in her brain is resorbed. She will need continued speech therapy to help with the dysphasia. She is aware that he had NG tube cannot stay in place indefinitely and also if fails calorie counting might consider PEG tube placement. If she does not wish to pursue a PEG tube, she may wish to consider comfort measures only. (3) Hypokalemia ICD Codes: E87.6 - Hypokalemia Status: Resolved Plan: We will follow potassium level. Continue supplement (4) Diarrhea ICD Codes: R19.7 - Diarrhea, unspecified Status: Resolved Plan: Improved. Will follow. (5) Hypertension ICD Codes: I10 - Essential (primary) hypertension Status: Acute Plan: Blood pressure under better control. Continue with current medication and cover elevated blood pressure readings with clonidine. (6) Hypothyroidism Status: Chronic Plan: Continue levothyroxine (7) Idiopathic nonfamilial dystonia Status: Chronic Plan: Continue carbamazepine (8) Insomnia ICD Codes: G47.00 - Insomnia, unspecified Status: Chronic Plan: Sleeping well with low-dose temazepam. (9) Lumbar spondylosis ICD Codes: M47.816 - Spondylosis without myelopathy or radiculopathy, lumbar region Status: Chronic Plan: Patient complaining of intermittent back pain. Receiving tramadol as needed. The patient is tentatively accepted at [facility] once NG tube is out. Will do calorie count to see if need for PEG tube. Passed barium swallow. Add MVT to help with appetite Problem Qualifiers (1) Acute respiratory failure: Qualified Codes: J96.00 - Acute respiratory failure, unspecified whether with hypoxia or hypercapnia (2) Hypothyroidism: Qualified Codes: E03.9 - Hypothyroidism, unspecified (3) Leukocytosis: Qualified Codes: D72.829 - Elevated white blood cell count, unspecified Yakelin Lemos MD Feb 04, 2018 07:58
[2018-02-04] MEDS: CHLORHEXIDINE 0.12% (ORAL KIT) 15 ML CUP MT SCH ×2 (08:00→20:00)
[2018-02-04 08:23] VITALS: BP 153/78; PULSE 88; RESP 18; TEMP 97.6; O2SAT 93
[2018-02-04] MEDS: carBAMazepine SUSP 200 MG/10 ML UDC NG SCH ×2 (08:51→22:02)
[2018-02-04] MEDS: POTASSIUM CHLORIDE 25 MEQ EFFERVESCENT TAB NG SCH ×2 (08:51→22:15)
[2018-02-04] MEDS: PANTOPRAZOLE SODIUM 40 MG VIAL IV PUSH SCH (08:51)
[2018-02-04] MEDS: amLODIPine BESYLATE 5 MG TAB PO SCH (08:51)
[2018-02-04] MEDS: traMADol HCL 50 MG TAB PEG PRN (08:52)
[2018-02-04] MEDS: SODIUM CHLORIDE 0.9% FLUSH 10 ML FLUSH IV FLUSH SCH ×2 (08:52→22:02)
[2018-02-04] MEDS: MULTIVITAMIN TAB PO SCH (08:52)
[2018-02-04] MEDS: LOSARTAN 50 MG TAB PO SCH ×2 (08:52→22:02)
[2018-02-04] MEDS: ARTIFICIAL TEARS OPTH SOLN 15 ML BTL EACH EYE SCH ×3 (08:53→16:10)
[2018-02-04 12:22] VITALS: BP 151/109; PULSE 101; RESP 18; TEMP 98; O2SAT 100
[2018-02-04 16:03] VITALS: BP 177/90; PULSE 101; RESP 18; TEMP 97.7; O2SAT 94
[2018-02-04 20:00] VITALS: BP 154/65; PULSE 106; RESP 18; TEMP 97.3; O2SAT 97
--- NOTE | 2018-02-04 21:56 | HHI.NSPN ---
History Chief Complaint: I am tired Interval History Status post posterior fossa hemorrhage. Patient reports being tired otherwise offers no complaints Exam Results Vital Signs Date Time Temp Pulse Resp B/P (MAP) Pulse Ox O2 Delivery O2 Flow Rate FiO2 02/04/18 20:00 97.3 106 18 154/65 (94) 97 Intake and Output 02/04/18 02/04/18 02/05/18 08:00 16:00 00:00 Intake Total 635 ml Balance 635 ml Physical Examination Patient is alert and awake she follows commands. She is somewhat agitated and irritable She moves all extremities well except for the right upper extremity Medical Decision Making Impression and Plan Patient appears to be stable We will order repeat CT of the head Deuce Gill MD Feb 04, 2018 21:56
[2018-02-04] MEDS: TEMAZEPAM 7.5 MG CAP PO SCH (22:02)
[2018-02-05] VITALS: BP 132/63; PULSE 110; RESP 18; TEMP 98.5; O2SAT 95
[2018-02-05] MEDS: INSULIN NovoLIN REGULAR SUPPLEMENTAL SCALE SQ SCH ×4 (00:33→16:53)
[2018-02-05] MEDS: CHLORHEXIDINE GLUCONATE 2 % 1 PACK (2 CLOTHS) TOP SCH (04:00)
[2018-02-05 05:00] VITALS: BP 132/81; PULSE 99; RESP 18; TEMP 97.2; O2SAT 98
[2018-02-05] MEDS: CHLORHEXIDINE 0.12% (ORAL KIT) 15 ML CUP MT SCH (08:00)
--- NOTE | 2018-02-05 08:25 | RADRPT ---
EXAM DATE/TIME: 02/05/2018 08:02 [facility] COMPARISON: CT BRAIN W/O CONTRAST, January 28, 2018, 3:57. INDICATIONS : Abnormal prior CT brain, evaluate status of posterior fossa hemorrhage. RADIATION DOSE: 49.97 CTDIvol (mGy) ; Patient motion MEDICAL HISTORY : Congestive hearrt failure. Seizures. Chronic obstructive pulmonary disease. SURGICAL HISTORY : section. Appendectomy.Cholecystectomy.brain surgery ENCOUNTER: Initial ACUITY: 1 day PAIN SCALE: 0/10 LOCATION: Bilateral head TECHNIQUE: Multiple contiguous axial images were obtained of the head. Using automated exposure control and adj ustment of the mA and/or kV according to patient size, radiation dose was kept as low as reasonably a chievable to obtain optimal diagnostic quality images. DICOM format image data is available electro nically for review and comparison. FINDINGS: There has been interval development of increasing hypodensity in the bilateral cerebellar hemispheres and vermis with a small amount of prior hemorrhage seen at the midline cerebellum as well as fourth ventricle. There is a clip adjacent to the left frontal horn and left hypothalamic region with enceph alomalacia seen in the left frontal region. Left frontal alfredo hole. No fractures. CONCLUSION: The hyperdense hemorrhage seen previously in the posterior fossa is decreased in attenuation today. T here is increasing hypodensity of the cerebellum. This is consistent with edema, possibly evolving in farct. Kendall Rodriguez MD on February 05, 2018 at 8:20 Board Certified Radiologist. This report was verified electronically.
--- NOTE | 2018-02-05 08:32 | HHI.PR ---
Subjective Remarks In bed at bedside. Patient however not much improvement. Speech is better. Says she is eating yesterday. Calorie counting at this time No diarrhea or constipation. No cough fever or chills. Denies chest pain or shortness of breath. Objective Vitals Vital Signs Date Time Temp Pulse Resp B/P (MAP) Pulse Ox O2 Delivery O2 Flow Rate FiO2 02/05/18 05:00 97.2 99 18 132/81 (98) 98 02/05/18 00:00 98.5 110 18 132/63 (86) 95 02/04/18 20:00 97.3 106 18 154/65 (94) 97 02/04/18 16:03 97.7 101 18 177/90 (119) 94 02/04/18 12:22 98.0 101 18 151/109 (123) 100 02/04/18 09:52 16 I/O 02/04/18 02/04/18 02/04/18 02/05/18 02/05/18 02/05/18 07:00 15:00 23:00 07:00 15:00 23:00 Intake Total 635 ml 345 ml Balance 635 ml 345 ml IV Total 69 ml Tube Feeding 366 ml 345 ml Other 200 ml # Voids 4 1 2 # Bowel Movements 0 Result Diagram: 02/03/18 0615 02/03/18 0616 Imaging Last Impressions Modified Barium Swallow 02/02/18 0000 Signed Impressions: Service Date/Time: January 00:00 - CONCLUSION: Normal examination. Navdeep Ko MD Head CT 01/28/18 0600 Signed Impressions: Service Date/Time: Sunday, January 28, 2018 03:57 - CONCLUSION: Stable posterior cranial fossa hemorrhage. Bimal Victoria Jr., MD Abdomen X-Ray 01/28/18 0000 Signed Impressions: Service Date/Time: Sunday, January 28, 2018 13:15 - CONCLUSION: 1. Weighted feeding tube projects over the expected location of the gastric lumen. 2. Nonobstructive bowel gas pattern. 3. Left basilar consolidation/effusion. Gerry Karimi MD Chest X-Ray 01/24/18 0000 Signed Impressions: Service Date/Time: Wednesday, January 24, 2018 03:27 - CONCLUSION: No significant change mild patchy airspace opacities of the left mid and lower lung. Brayan Ann MD Neck CTA 01/23/18 193 Signed Impressions: Service Date/Time: Tuesday, January 23, 2018 18:47 - CONCLUSION: Occlusion of the left internal carotid artery. Brayan Marion MD Head CTA 01/23/187 Signed Impressions: Service Date/Time: Tuesday, January 23, 2018 18:47 - CONCLUSION: Occlusion of the left internal carotid artery. An aneurysm is not seen. Brayan Marion MD Objective Remarks GENERAL: 77 yo F appears in nad. CARDIOVASCULAR: Regular rate and rhythm. RESPIRATORY: No accessory muscle use. Clear to auscultation. Breath sounds equal bilaterally. GASTROINTESTINAL: Abdomen soft, non-tender, nondistended. Hepatic and splenic margins not palpable. MUSCULOSKELETAL: Extremities without clubbing, cyanosis, or edema. No obvious deformities. NEUROLOGICAL: Awake and alert. No obvious cranial nerve deficits. Motor grossly within normal limits. Dysarthria. Right upper extremity decreased fine motor control which is a chronic finding. PSYCHIATRIC: Appropriate mood and affect; insight and judgment normal. A/P Problem List: (1) Acute respiratory failure ICD Code: J96.00 - Acute respiratory failure, unspecified whether with hypoxia or hypercapnia (2) Intracranial hemorrhage ICD Code: I62.9 - Nontraumatic intracranial hemorrhage, unspecified Status: Acute (3) Hypertensive emergency ICD Code: I16.1 - Hypertensive emergency Status: Acute (4) Hypothyroidism ICD Code: E03.9 - Hypothyroidism, unspecified Status: Chronic (5) Dystonia ICD Code: G24.9 - Dystonia, unspecified Status: Chronic (6) Leukocytosis ICD Code: D72.829 - Elevated white blood cell count, unspecified Assessment and Plan (1) Intracranial hemorrhage ICD Codes: I62.9 - Nontraumatic intracranial hemorrhage, unspecified Status: Acute Plan: Patient is neurologically stable. Continue PT/OT/ST. (2) Severe oral pharyngeal dysphagia, high aspiration risk Status: Acute Plan: Modified barium swallow is normal. Do calorie count if eating well no need for PEG. Her dysphagia will likely improve as the blood in her brain is resorbed. She will need continued speech therapy to help with the dysphasia. She is aware that he had NG tube cannot stay in place indefinitely and also if fails calorie counting might consider PEG tube placement. If she does not wish to pursue a PEG tube, she may wish to consider comfort measures only. (3) Hypokalemia ICD Codes: E87.6 - Hypokalemia Status: Resolved Plan: We will follow potassium level. Continue supplement (4) Diarrhea ICD Codes: R19.7 - Diarrhea, unspecified Status: Resolved Plan: Improved. Will follow. (5) Hypertension ICD Codes: I10 - Essential (primary) hypertension Status: Acute Plan: Blood pressure under better control. Continue with current medication and cover elevated blood pressure readings with clonidine. (6) Hypothyroidism Status: Chronic Plan: Continue levothyroxine (7) Idiopathic nonfamilial dystonia Status: Chronic Plan: Continue carbamazepine (8) Insomnia ICD Codes: G47.00 - Insomnia, unspecified Status: Chronic Plan: Sleeping well with low-dose temazepam. (9) Lumbar spondylosis ICD Codes: M47.816 - Spondylosis without myelopathy or radiculopathy, lumbar region Status: Chronic Plan: Patient complaining of intermittent back pain. Receiving tramadol as needed. The patient is tentatively accepted to [place] [facility] inpatient [facility] once NG tube is out. Will do calorie count to see if need for PEG tube. Passed barium swallow. Add MVT to help with appetite. Problem Qualifiers (1) Acute respiratory failure: Qualified Codes: J96.00 - Acute respiratory failure, unspecified whether with hypoxia or hypercapnia (2) Hypothyroidism: Qualified Codes: E03.9 - Hypothyroidism, unspecified (3) Leukocytosis: Qualified Codes: D72.829 - Elevated white blood cell count, unspecified Yakelin Lemos MD Feb 05, 2018 08:32
[2018-02-05 08:42] VITALS: BP 179/81; PULSE 104; RESP 18; TEMP 97.9; O2SAT 98
[2018-02-05] MEDS: MULTIVITAMIN TAB PO SCH (09:00)
[2018-02-05] MEDS: PANTOPRAZOLE SODIUM 40 MG VIAL IV PUSH SCH (09:00)
[2018-02-05] MEDS: carBAMazepine SUSP 200 MG/10 ML UDC NG SCH (09:00)
[2018-02-05] MEDS: amLODIPine BESYLATE 5 MG TAB PO SCH (09:00)
[2018-02-05] MEDS: ARTIFICIAL TEARS OPTH SOLN 15 ML BTL EACH EYE SCH ×3 (09:00→16:54)
[2018-02-05] MEDS: POTASSIUM CHLORIDE 25 MEQ EFFERVESCENT TAB NG SCH (09:00)
[2018-02-05] MEDS: SODIUM CHLORIDE 0.9% FLUSH 10 ML FLUSH IV FLUSH SCH (09:00)
[2018-02-05] MEDS: LOSARTAN 50 MG TAB PO SCH (09:00)
[2018-02-05 12:00] VITALS: BP 120/56; PULSE 115; RESP 18; TEMP 97.5; O2SAT 96
[2018-02-05] MEDS: NS + KCL 40 MEQ INJ 1,000 ML IV SCH (12:06)
--- NOTE | 2018-02-05 15:05 | HHI.NSPN ---
History Chief Complaint: I am tired Interval History Status post posterior fossa hemorrhage. Patient reports being tired and complains of diarrhea Exam Results Vital Signs Date Time Temp Pulse Resp B/P (MAP) Pulse Ox O2 Delivery O2 Flow Rate FiO2 02/05/18 12:00 97.5 115 18 120/56 (77) 96 Intake and Output 02/05/18 02/05/18 02/05/18 07:59 15:59 23:59 Intake Total 345 ml 50 ml Balance 345 ml 50 ml Physical Examination Patient is alert and awake she follows commands. She is less agitated today She moves all extremities well except for the right upper extremity Lab, Micro, Other Results CT shows continued resolution of hemorrhage Medical Decision Making Impression and Plan Patient appears to be stable Needs PT/OT Deuce Gill MD Feb 05, 2018 15:05
[2018-02-05 16:00] VITALS: BP 152/68; PULSE 99; RESP 18; TEMP 97.6; O2SAT 96
[2018-02-05 20:00] VITALS: BP 149/64; PULSE 110; RESP 18; TEMP 98.3; O2SAT 95
[2018-02-05] MEDS: traMADol HCL 50 MG TAB PEG PRN (20:12)
[2018-02-06] MEDS: carBAMazepine SUSP 200 MG/10 ML UDC NG SCH ×3 (00:01→22:15)
[2018-02-06] MEDS: SODIUM CHLORIDE 0.9% FLUSH 10 ML FLUSH IV FLUSH SCH ×3 (00:01→21:00)
[2018-02-06] MEDS: POTASSIUM CHLORIDE 25 MEQ EFFERVESCENT TAB NG SCH ×3 (00:01→22:15)
[2018-02-06] MEDS: LOSARTAN 50 MG TAB PO SCH ×3 (00:02→22:16)
[2018-02-06] MEDS: INSULIN NovoLIN REGULAR SUPPLEMENTAL SCALE SQ SCH ×4 (00:04→17:24)
[2018-02-06] MEDS: CHLORHEXIDINE GLUCONATE 2 % 1 PACK (2 CLOTHS) TOP SCH (04:00)
[2018-02-06] MEDS: traMADol HCL 50 MG TAB PEG PRN ×3 (05:19→22:17)
[2018-02-06 08:00] VITALS: BP 159/86; PULSE 106; RESP 16; TEMP 97.8; O2SAT 96
[2018-02-06] MEDS: CHLORHEXIDINE 0.12% (ORAL KIT) 15 ML CUP MT SCH ×3 (08:00→20:00)
[2018-02-06] MEDS: ARTIFICIAL TEARS OPTH SOLN 15 ML BTL EACH EYE SCH ×3 (09:00→17:24)
[2018-02-06] MEDS: MULTIVITAMIN TAB PO SCH (09:52)
[2018-02-06] MEDS: PANTOPRAZOLE SODIUM 40 MG VIAL IV PUSH SCH (09:53)
[2018-02-06] MEDS: amLODIPine BESYLATE 5 MG TAB PO SCH (10:01)
[2018-02-06 12:00] VITALS: BP 153/75; PULSE 101; RESP 17; TEMP 98; O2SAT 99
[2018-02-06] MEDS: NS + KCL 40 MEQ INJ 1,000 ML IV SCH (12:02)
[2018-02-06 16:23] VITALS: BP 144/67; PULSE 100; RESP 20; TEMP 98.6; O2SAT 98
--- NOTE | 2018-02-06 18:16 | HHI.PR ---
Subjective Remarks Patient states she feels weak but relatively well today, her only complaint is her Dobbhoff tube. Objective Vitals Vital Signs Date Time Temp Pulse Resp B/P (MAP) Pulse Ox O2 Delivery O2 Flow Rate FiO2 02/06/18 16:23 98.6 100 20 144/67 (92) 98 02/06/18 12:00 98.0 101 17 153/75 (101) 99 02/06/18 08:00 97.8 106 16 159/86 (110) 96 02/05/18 20:00 98.3 110 18 149/64 (92) 95 I/O 02/05/18 02/05/18 02/05/18 02/06/18 02/06/18 02/06/18 06:59 14:59 22:59 06:59 14:59 22:59 Intake Total 345 ml 50 ml 352 ml Balance 345 ml 50 ml 352 ml Tube Feeding 345 ml 352 ml Tube Irrigant 50 ml # Voids 2 2 Result Diagram: 02/03/18 0615 02/03/18 0616 Objective Remarks GENERAL: Weak elderly female SKIN: Warm and dry. HEAD: Dobbhoff tube in place EYES: No scleral icterus. No injection or drainage. NECK: Supple, trachea midline. No JVD or lymphadenopathy. CARDIOVASCULAR: Regular rate and rhythm without murmurs, gallops, or rubs. RESPIRATORY: Breath sounds equal bilaterally. No accessory muscle use. GASTROINTESTINAL: Abdomen soft, non-tender, nondistended. EXTREMITIES: No cyanosis, or edema. NEUROLOGICAL: Awake, alert, and oriented x 3. Non-focal. A/P Problem List: (1) Acute respiratory failure ICD Code: J96.00 - Acute respiratory failure, unspecified whether with hypoxia or hypercapnia (2) Intracranial hemorrhage ICD Code: I62.9 - Nontraumatic intracranial hemorrhage, unspecified Status: Acute (3) Hypertensive emergency ICD Code: I16.1 - Hypertensive emergency Status: Acute (4) Hypothyroidism ICD Code: E03.9 - Hypothyroidism, unspecified Status: Chronic (5) Dystonia ICD Code: G24.9 - Dystonia, unspecified Status: Chronic (6) Leukocytosis ICD Code: D72.829 - Elevated white blood cell count, unspecified Assessment and Plan Hypertensive emergency with intracranial hemorrhage Blood pressure well managed currently Recent CT shows no evolution of intracranial bleed, some evolution of ischemic damage (expected) Continue clonidine as needed Continue PT, OT, speech Food and nutrition Patient was having dysphagia recently and has Dobbhoff tube placed to maintain calorie intake She is currently being calorically monitored to determine if Dobbhoff tube can be removed If Dobbhoff tube is necessary she must convert to PEG tube prior to discharge to rehab Lumbar spondylosis Continue tramadol as needed Continue PT, OT Insomnia Continue low-dose temazepam h/o Idiopathic nonfamilial dystonia Follow clinically Leukocytosis, hypokalemia, diarrhea All resolved DVT prophylaxis Held due to intracranial bleed SCDs Discharge planning Patient is accepted at [facility]. She must have Dobbhoff tube out prior to transfer to [facility] Problem Qualifiers (1) Acute respiratory failure: Qualified Codes: J96.00 - Acute respiratory failure, unspecified whether with hypoxia or hypercapnia (2) Hypothyroidism: Qualified Codes: E03.9 - Hypothyroidism, unspecified (3) Leukocytosis: Qualified Codes: D72.829 - Elevated white blood cell count, unspecified Олег Hearn MD Feb 06, 2018 18:16
[2018-02-06 21:40] VITALS: BP 140/67; PULSE 105; RESP 19; TEMP 97.4; O2SAT 93
[2018-02-06] MEDS: TEMAZEPAM 7.5 MG CAP PO SCH ×2 (22:17)
[2018-02-07 00:15] VITALS: BP 132/69; PULSE 101; RESP 20; TEMP 98.8; O2SAT 94
[2018-02-07] MEDS: CHLORHEXIDINE GLUCONATE 2 % 1 PACK (2 CLOTHS) TOP SCH (04:00)
[2018-02-07 04:30] VITALS: BP 130/62; PULSE 88; RESP 19; TEMP 97.3; O2SAT 94
[2018-02-07] MEDS ORDERED: DICYCLOMINE HCL 10 MG CAP PO ONE (04:45)
[2018-02-07] MEDS: NS + KCL 40 MEQ INJ 1,000 ML IV SCH (05:00)
[2018-02-07] MEDS: INSULIN NovoLIN REGULAR SUPPLEMENTAL SCALE SQ SCH ×4 (05:58→18:00)
[2018-02-07 08:00] VITALS: BP 158/75; PULSE 108; RESP 20; TEMP 98.2; O2SAT 95
[2018-02-07] MEDS: CHLORHEXIDINE 0.12% (ORAL KIT) 15 ML CUP MT SCH ×2 (08:00→20:00)
[2018-02-07] MEDS: MULTIVITAMIN TAB PO SCH (09:00)
[2018-02-07] MEDS: amLODIPine BESYLATE 5 MG TAB PO SCH (09:00)
[2018-02-07] MEDS: SODIUM CHLORIDE 0.9% FLUSH 10 ML FLUSH IV FLUSH SCH ×2 (09:00→20:54)
[2018-02-07] MEDS: POTASSIUM CHLORIDE 25 MEQ EFFERVESCENT TAB NG SCH ×2 (09:00→21:00)
[2018-02-07] MEDS: LOSARTAN 50 MG TAB PO SCH ×2 (09:00→20:52)
[2018-02-07] MEDS: carBAMazepine SUSP 200 MG/10 ML UDC NG SCH ×2 (09:00→20:53)
[2018-02-07] MEDS: PANTOPRAZOLE SODIUM 40 MG VIAL IV PUSH SCH (09:00)
[2018-02-07] MEDS: ARTIFICIAL TEARS OPTH SOLN 15 ML BTL EACH EYE SCH ×2 (09:00→18:00)
[2018-02-07 12:00] VITALS: BP 174/81; PULSE 103; RESP 20; TEMP 97.8; O2SAT 95
--- NOTE | 2018-02-07 13:55 | HHI.PR ---
Subjective Remarks Patient states that she is not very interested in receiving a PEG tube. She is tired of having her Dobbhoff tube in place, it causes her nose pain and throat pain. She wants it out. She states that the reason she is unable to eat adequate calories is because the hospital food is unbearable. Objective Vitals Vital Signs Date Time Temp Pulse Resp B/P (MAP) Pulse Ox O2 Delivery O2 Flow Rate FiO2 02/07/18 12:00 97.8 103 20 174/81 (112) 95 02/07/18 08:00 98.2 108 20 158/75 (102) 95 02/07/18 04:30 97.3 88 19 130/62 (84) 94 02/07/18 00:15 98.8 101 20 132/69 (90) 94 02/06/18 21:40 97.4 105 19 140/67 (91) 93 02/06/18 16:23 98.6 100 20 144/67 (92) 98 I/O 02/06/18 02/06/18 02/06/18 02/07/18 02/07/18 02/07/18 07:00 15:00 23:00 07:00 15:00 23:00 Intake Total 352 ml 400 ml Balance 352 ml 400 ml Intake Oral 400 ml Tube Feeding 352 ml # Voids 6 3 # Bowel Movements 0 Result Diagram: 02/03/18 0615 02/03/18 0616 Objective Remarks GENERAL: Weak elderly female SKIN: Warm and dry. HEAD: Dobbhoff tube in place EYES: No scleral icterus. No injection or drainage. NECK: Supple, trachea midline. No JVD or lymphadenopathy. CARDIOVASCULAR: Regular rate and rhythm without murmurs, gallops, or rubs. RESPIRATORY: Breath sounds equal bilaterally. No accessory muscle use. GASTROINTESTINAL: Abdomen soft, non-tender, nondistended. EXTREMITIES: No cyanosis, or edema. NEUROLOGICAL: Awake, alert, and oriented x 3. Non-focal. A/P Problem List: (1) Acute respiratory failure ICD Code: J96.00 - Acute respiratory failure, unspecified whether with hypoxia or hypercapnia (2) Intracranial hemorrhage ICD Code: I62.9 - Nontraumatic intracranial hemorrhage, unspecified Status: Acute (3) Hypertensive emergency ICD Code: I16.1 - Hypertensive emergency Status: Acute (4) Hypothyroidism ICD Code: E03.9 - Hypothyroidism, unspecified Status: Chronic (5) Dystonia ICD Code: G24.9 - Dystonia, unspecified Status: Chronic (6) Leukocytosis ICD Code: D72.829 - Elevated white blood cell count, unspecified Assessment and Plan Hypertensive emergency with intracranial hemorrhage Recent CT shows no evolution of intracranial bleed, some evolution of ischemic damage (expected) Blood pressure well managed currently Continue clonidine as needed Continue PT, OT, speech Food and nutrition Patient was having dysphagia recently and had Dobbhoff tube placed to maintain calorie intake She has finished with caloric intake count, she is requesting to have her Dobbhoff removed Removed Dobbhoff tube today, will see if her appetite increases due to lack of overnight feeds Lumbar spondylosis Continue tramadol as needed Continue PT, OT Insomnia Continue low-dose temazepam h/o Idiopathic nonfamilial dystonia Follow clinically Leukocytosis, hypokalemia, diarrhea All resolved DVT prophylaxis Held due to intracranial bleed SCDs Discharge planning Patient is accepted at [facility]. Awaiting results of calorie count Problem Qualifiers (1) Acute respiratory failure: Qualified Codes: J96.00 - Acute respiratory failure, unspecified whether with hypoxia or hypercapnia (2) Hypothyroidism: Qualified Codes: E03.9 - Hypothyroidism, unspecified (3) Leukocytosis: Qualified Codes: D72.829 - Elevated white blood cell count, unspecified Олег Hearn MD February 07, 2018 13:55
[2018-02-07 16:00] VITALS: BP 139/70; PULSE 109; RESP 20; TEMP 98.7; O2SAT 98
[2018-02-07] MEDS: traMADol HCL 50 MG TAB PEG PRN (18:33)
[2018-02-07 20:00] VITALS: BP 121/63; PULSE 101; RESP 18; TEMP 97.1; O2SAT 93
[2018-02-07] MEDS: TEMAZEPAM 7.5 MG CAP PO SCH (22:36)
[2018-02-08] VITALS: BP 120/80; PULSE 98; RESP 19; TEMP 98.8; O2SAT 93
[2018-02-08] MEDS: NS + KCL 40 MEQ INJ 1,000 ML IV SCH (00:05)
[2018-02-08] MEDS: CHLORHEXIDINE GLUCONATE 2 % 1 PACK (2 CLOTHS) TOP SCH (04:00)
[2018-02-08 05:50] VITALS: BP 122/88; PULSE 88; RESP 19; TEMP 98; O2SAT 94
[2018-02-08] MEDS: INSULIN NovoLIN REGULAR SUPPLEMENTAL SCALE SQ SCH ×4 (06:00→17:01)
[2018-02-08 07:42] VITALS: BP 127/61; PULSE 93; RESP 18; TEMP 98; O2SAT 97
[2018-02-08] MEDS: CHLORHEXIDINE 0.12% (ORAL KIT) 15 ML CUP MT SCH ×2 (08:00→20:00)
[2018-02-08] MEDS: carBAMazepine SUSP 200 MG/10 ML UDC NG SCH ×2 (09:00→21:41)
[2018-02-08] MEDS: SODIUM CHLORIDE 0.9% FLUSH 10 ML FLUSH IV FLUSH SCH ×2 (09:00→21:44)
[2018-02-08] MEDS: ARTIFICIAL TEARS OPTH SOLN 15 ML BTL EACH EYE SCH ×3 (09:00→18:00)
[2018-02-08] MEDS: PANTOPRAZOLE SODIUM 40 MG VIAL IV PUSH SCH (09:36)
[2018-02-08] MEDS: MULTIVITAMIN TAB PO SCH (09:37)
[2018-02-08] MEDS: amLODIPine BESYLATE 5 MG TAB PO SCH (09:37)
[2018-02-08] MEDS: LOSARTAN 50 MG TAB PO SCH ×2 (09:37→21:39)
[2018-02-08] MEDS: POTASSIUM CHLORIDE 25 MEQ EFFERVESCENT TAB NG SCH ×2 (09:49→21:00)
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
[2018-02-08 11:52] VITALS: BP 136/65; PULSE 95; RESP 18; TEMP 97.7; O2SAT 96
--- NOTE | 2018-02-08 14:33 | HHI.PR ---
Subjective Remarks Patient states she is more comfortable and able to swallow easier after removal of Dobbhoff tube. She says she felt hungry her breakfast due to lack of feeding tube feeds overnight. She complains of a coating on her tongue. Objective Vitals Vital Signs Date Time Temp Pulse Resp B/P (MAP) Pulse Ox O2 Delivery O2 Flow Rate FiO2 02/08/18 11:52 97.7 95 18 136/65 (88) 96 02/08/18 07:42 98.0 93 18 127/61 (83) 97 02/08/18 05:50 98.0 88 19 122/88 (99) 94 02/08/18 00:00 98.8 98 19 120/80 (93) 93 02/07/18 20:00 97.1 101 18 121/63 (82) 93 02/07/18 16:00 98.7 109 20 139/70 (93) 98 I/O 02/07/18 02/07/18 02/07/18 02/08/18 02/08/18 02/08/18 07:00 15:00 23:00 07:00 15:00 23:00 Intake Total 400 ml 360 ml 400 ml 974 ml Balance 400 ml 360 ml 400 ml 974 ml Intake Oral 400 ml 360 ml 400 ml 500 ml IV Total 474 ml # Voids 6 4 4 6 # Bowel Movements 0 0 0 Objective Remarks GENERAL: Weak elderly female SKIN: Warm and dry. HEAD: Frosted coating over tongue EYES: No scleral icterus. No injection or drainage. NECK: Supple, trachea midline. No JVD or lymphadenopathy. CARDIOVASCULAR: Regular rate and rhythm without murmurs, gallops, or rubs. RESPIRATORY: Breath sounds equal bilaterally. No accessory muscle use. GASTROINTESTINAL: Abdomen soft, non-tender, nondistended. EXTREMITIES: No cyanosis, or edema. NEUROLOGICAL: Awake, alert, and oriented x 3. Non-focal. A/P Problem List: (1) Acute respiratory failure ICD Code: J96.00 - Acute respiratory failure, unspecified whether with hypoxia or hypercapnia (2) Intracranial hemorrhage ICD Code: I62.9 - Nontraumatic intracranial hemorrhage, unspecified Status: Acute (3) Hypertensive emergency ICD Code: I16.1 - Hypertensive emergency Status: Acute (4) Hypothyroidism ICD Code: E03.9 - Hypothyroidism, unspecified Status: Chronic (5) Dystonia ICD Code: G24.9 - Dystonia, unspecified Status: Chronic (6) Leukocytosis ICD Code: D72.829 - Elevated white blood cell count, unspecified Assessment and Plan Hypertensive emergency with intracranial hemorrhage Recent CT shows no evolution of intracranial bleed, some evolution of ischemic damage (expected) Blood pressure well managed currently Continue clonidine as needed Continue PT, OT, speech Oral thrush Begin nystatin swish and swallow Food and nutrition Patient was having dysphagia recently and had Dobbhoff tube placed to maintain calorie intake Top of tube was removed, patient tolerating p.o. meals Lumbar spondylosis Continue tramadol as needed Continue PT, OT Insomnia Continue low-dose temazepam h/o Idiopathic nonfamilial dystonia Follow clinically Leukocytosis, hypokalemia, diarrhea All resolved DVT prophylaxis Held due to intracranial bleed SCDs Discharge planning Patient is accepted at [facility]. Awaiting results of calorie count Problem Qualifiers (1) Acute respiratory failure: Qualified Codes: J96.00 - Acute respiratory failure, unspecified whether with hypoxia or hypercapnia (2) Hypothyroidism: Qualified Codes: E03.9 - Hypothyroidism, unspecified (3) Leukocytosis: Qualified Codes: D72.829 - Elevated white blood cell count, unspecified Олег Hearn MD February 08, 2018 14:33
[2018-02-08 16:05] VITALS: BP 130/62; PULSE 93; RESP 18; TEMP 98.1; O2SAT 97
[2018-02-08] MEDS: NYSTATIN SUSP 500,000 U/5 ML CUP SWISH-SWAL SCH ×2 (16:47→21:40)
[2018-02-08] MEDS: TEMAZEPAM 7.5 MG CAP PO SCH (23:12)
[2018-02-09] VITALS: BP 124/59; PULSE 93; RESP 18; TEMP 98.3; O2SAT 98
[2018-02-09] MEDS: CHLORHEXIDINE GLUCONATE 2 % 1 PACK (2 CLOTHS) TOP SCH (04:00)
[2018-02-09 05:53] VITALS: BP 132/64; PULSE 93; RESP 18; TEMP 97.9; O2SAT 100
[2018-02-09] MEDS: INSULIN NovoLIN REGULAR SUPPLEMENTAL SCALE SQ SCH ×4 (06:00→16:20)
[2018-02-09] MEDS: CHLORHEXIDINE 0.12% (ORAL KIT) 15 ML CUP MT SCH ×2 (08:00→20:00)
[2018-02-09] MEDS: SODIUM CHLORIDE 0.9% FLUSH 10 ML FLUSH IV FLUSH SCH ×2 (08:29→20:50)
[2018-02-09] MEDS: POTASSIUM CHLORIDE 25 MEQ EFFERVESCENT TAB NG SCH ×2 (08:29→20:50)
[2018-02-09] MEDS: ARTIFICIAL TEARS OPTH SOLN 15 ML BTL EACH EYE SCH ×3 (08:30→16:11)
[2018-02-09] MEDS: NYSTATIN SUSP 500,000 U/5 ML CUP SWISH-SWAL SCH ×4 (08:31→20:45)
[2018-02-09] MEDS: PANTOPRAZOLE SODIUM 40 MG VIAL IV PUSH SCH (08:31)
[2018-02-09] MEDS: LOSARTAN 50 MG TAB PO SCH ×2 (08:32→20:47)
[2018-02-09] MEDS: MULTIVITAMIN TAB PO SCH (08:32)
[2018-02-09] MEDS: amLODIPine BESYLATE 5 MG TAB PO SCH (08:32)
[2018-02-09] MEDS: carBAMazepine SUSP 200 MG/10 ML UDC NG SCH ×2 (08:34→20:46)
[2018-02-09 08:55] VITALS: BP 140/70; PULSE 96; RESP 18; TEMP 97.8; O2SAT 93
[2018-02-09] MEDS: NS + KCL 40 MEQ INJ 1,000 ML IV SCH (10:52)
[2018-02-09] MEDS ORDERED: GLYCERIN ADULT 2 GM SUPP RECTAL ONE (11:30)
[2018-02-09 11:38] VITALS: BP 130/66; PULSE 92; RESP 18; TEMP 98.3; O2SAT 97
[2018-02-09 15:36] VITALS: BP 139/69; PULSE 92; RESP 18; TEMP 97.6; O2SAT 95
--- NOTE | 2018-02-09 16:19 | HHI.PR ---
Subjective Remarks Patient states she is tired of the food and tired of pured eggs. She requests a suppository for constipation. She requests an increase in her sleeping pill. Objective Vitals Vital Signs Date Time Temp Pulse Resp B/P (MAP) Pulse Ox O2 Delivery O2 Flow Rate FiO2 02/09/18 15:36 97.6 92 18 139/69 (92) 95 02/09/18 11:38 98.3 92 18 130/66 (87) 97 02/09/18 08:55 97.8 96 18 140/70 (93) 93 02/09/18 05:53 97.9 93 18 132/64 (86) 100 02/09/18 00:00 98.3 93 18 124/59 (80) 98 I/O 02/08/18 02/08/18 02/08/18 02/09/18 02/09/18 02/09/18 07:00 15:00 23:00 07:00 15:00 23:00 Intake Total 974 ml Balance 974 ml Intake Oral 500 ml IV Total 474 ml # Voids 6 2 # Bowel Movements 0 1 Objective Remarks GENERAL: Weak elderly female SKIN: Warm and dry. HEAD: Frosted coating over tongue EYES: No scleral icterus. No injection or drainage. NECK: Supple, trachea midline. No JVD or lymphadenopathy. CARDIOVASCULAR: Regular rate and rhythm without murmurs, gallops, or rubs. RESPIRATORY: Breath sounds equal bilaterally. No accessory muscle use. GASTROINTESTINAL: Abdomen soft, non-tender, nondistended. EXTREMITIES: No cyanosis, or edema. NEUROLOGICAL: Awake, alert, and oriented x 3. Non-focal. A/P Problem List: (1) Acute respiratory failure ICD Code: J96.00 - Acute respiratory failure, unspecified whether with hypoxia or hypercapnia (2) Intracranial hemorrhage ICD Code: I62.9 - Nontraumatic intracranial hemorrhage, unspecified Status: Acute (3) Hypertensive emergency ICD Code: I16.1 - Hypertensive emergency Status: Acute (4) Hypothyroidism ICD Code: E03.9 - Hypothyroidism, unspecified Status: Chronic (5) Dystonia ICD Code: G24.9 - Dystonia, unspecified Status: Chronic (6) Leukocytosis ICD Code: D72.829 - Elevated white blood cell count, unspecified Assessment and Plan Hypertensive emergency with intracranial hemorrhage Recent CT shows no evolution of intracranial bleed, some evolution of ischemic damage (expected) Blood pressure well managed currently Continue clonidine as needed Continue PT, OT, speech Oral thrush Continue nystatin swish and swallow Overall slightly improved Food and nutrition Patient was having dysphagia recently and had Dobbhoff tube placed to maintain calorie intake Top of tube was removed, patient tolerating p.o. meals Constipation Glycerin suppository Insomnia Restoril increased from 7.5 mg to 15 mg nightly Lumbar spondylosis Continue tramadol as needed Continue PT, OT Insomnia Continue low-dose temazepam h/o Idiopathic nonfamilial dystonia Follow clinically Leukocytosis, hypokalemia, diarrhea All resolved DVT prophylaxis Held due to intracranial bleed SCDs Discharge planning Patient is accepted at [facility]. Awaiting results of calorie count Problem Qualifiers (1) Acute respiratory failure: Qualified Codes: J96.00 - Acute respiratory failure, unspecified whether with hypoxia or hypercapnia (2) Hypothyroidism: Qualified Codes: E03.9 - Hypothyroidism, unspecified (3) Leukocytosis: Qualified Codes: D72.829 - Elevated white blood cell count, unspecified Олег Hearn MD February 09, 2018 16:19
[2018-02-09 21:08] VITALS: BP 124/61; PULSE 96; RESP 18; TEMP 97.2; O2SAT 97
[2018-02-09] MEDS: TEMAZEPAM 15 MG CAP PO PRN (22:16)
[2018-02-10 01:03] VITALS: BP 140/66; PULSE 94; RESP 18; TEMP 98.9; O2SAT 95
[2018-02-10] MEDS: CHLORHEXIDINE GLUCONATE 2 % 1 PACK (2 CLOTHS) TOP SCH (04:00)
[2018-02-10 05:05] VITALS: BP 134/74; PULSE 91; RESP 20; TEMP 98.1; O2SAT 94
[2018-02-10] MEDS: INSULIN NovoLIN REGULAR SUPPLEMENTAL SCALE SQ SCH ×3 (06:00→11:31)
[2018-02-10] MEDS: CHLORHEXIDINE 0.12% (ORAL KIT) 15 ML CUP MT SCH ×2 (06:50→20:00)
[2018-02-10] MEDS: POTASSIUM CHLORIDE 25 MEQ EFFERVESCENT TAB NG SCH ×2 (07:53→21:00)
[2018-02-10] MEDS: ARTIFICIAL TEARS OPTH SOLN 15 ML BTL EACH EYE SCH ×3 (07:53→15:25)
[2018-02-10] MEDS: SODIUM CHLORIDE 0.9% FLUSH 10 ML FLUSH IV FLUSH SCH ×2 (07:53→21:00)
[2018-02-10] MEDS: amLODIPine BESYLATE 5 MG TAB PO SCH (07:54)
[2018-02-10] MEDS: MULTIVITAMIN TAB PO SCH (07:54)
[2018-02-10] MEDS: NYSTATIN SUSP 500,000 U/5 ML CUP SWISH-SWAL SCH ×4 (07:54→21:26)
[2018-02-10] MEDS: carBAMazepine SUSP 200 MG/10 ML UDC NG SCH ×2 (07:54→21:00)
[2018-02-10] MEDS: PANTOPRAZOLE SODIUM 40 MG VIAL IV PUSH SCH (07:54)
[2018-02-10] MEDS: LOSARTAN 50 MG TAB PO SCH ×2 (07:54→21:26)
[2018-02-10 08:00] VITALS: BP 159/73; PULSE 89; RESP 18; TEMP 97.4; O2SAT 94
[2018-02-10] MEDS: NS + KCL 40 MEQ INJ 1,000 ML IV SCH (11:18)
[2018-02-10 12:00] VITALS: BP 128/60; PULSE 88; RESP 18; TEMP 97.5; O2SAT 96
--- NOTE | 2018-02-10 12:33 | HHI.PR ---
Subjective Remarks 77-year-old female who is awaiting discharge to rehab depending on how she eats. She ate approximately 80% of her breakfast tray this morning. She wants more food options and is tired of pure eggs Objective Vitals Vital Signs Date Time Temp Pulse Resp B/P (MAP) Pulse Ox O2 Delivery O2 Flow Rate FiO2 02/10/18 08:00 97.4 89 18 159/73 (101) 94 02/10/18 05:05 98.1 91 20 134/74 (94) 94 02/10/18 01:03 98.9 94 18 140/66 (90) 95 02/09/18 21:08 97.2 96 18 124/61 (82) 97 02/09/18 15:36 97.6 92 18 139/69 (92) 95 I/O 02/09/18 02/09/18 02/09/18 02/10/18 02/10/18 02/10/18 07:00 15:00 23:00 07:00 15:00 23:00 Output Total 400 ml Balance -400 ml Output Urine Total 400 ml # Voids 2 1 1 # Bowel Movements 1 Objective Remarks GENERAL: Weak elderly female SKIN: Warm and dry. HEAD: Frosted coating over tongue EYES: No scleral icterus. No injection or drainage. NECK: Supple, trachea midline. No JVD or lymphadenopathy. CARDIOVASCULAR: Regular rate and rhythm without murmurs, gallops, or rubs. RESPIRATORY: Breath sounds equal bilaterally. No accessory muscle use. GASTROINTESTINAL: Abdomen soft, non-tender, nondistended. EXTREMITIES: No cyanosis, or edema. NEUROLOGICAL: Awake, alert, and oriented x 3. Non-focal. A/P Problem List: (1) Acute respiratory failure ICD Code: J96.00 - Acute respiratory failure, unspecified whether with hypoxia or hypercapnia (2) Intracranial hemorrhage ICD Code: I62.9 - Nontraumatic intracranial hemorrhage, unspecified Status: Acute (3) Hypertensive emergency ICD Code: I16.1 - Hypertensive emergency Status: Acute (4) Hypothyroidism ICD Code: E03.9 - Hypothyroidism, unspecified Status: Chronic (5) Dystonia ICD Code: G24.9 - Dystonia, unspecified Status: Chronic (6) Leukocytosis ICD Code: D72.829 - Elevated white blood cell count, unspecified Assessment and Plan Hypertensive emergency with intracranial hemorrhage Recent CT shows no evolution of intracranial bleed, some evolution of ischemic damage (expected) Blood pressure well managed currently Continue clonidine as needed Continue PT, OT, speech Oral thrush Continue nystatin swish and swallow Near to baseline Restless leg syndrome Patient complains of constant clicking throughout the night She says she has taken melatonin for this in the past Melatonin is ordered for as needed use Requip ordered for scheduled use Food and nutrition Patient was having dysphagia recently and had Dobbhoff tube placed to maintain calorie intake Top of tube was removed, patient tolerating p.o. meals Diet is limited to pured due to swallow eval demonstrating dysfunction Extra yogurt and protein shakes will be provided at bedside IV fluids were removed and she is encouraged to take extra p.o. fluids If she tolerates adequate meals throughout today she may be appropriate for discharge tomorrow Insomnia Patient states new dose of Restoril helped her sleep well last night Continue Restoril 15 mg nightly Lumbar spondylosis Continue tramadol as needed Continue PT, OT Insomnia Continue low-dose temazepam h/o Idiopathic nonfamilial dystonia Follow clinically Leukocytosis, hypokalemia, diarrhea All resolved DVT prophylaxis Held due to intracranial bleed SCDs Discharge planning If patient tolerates adequate meals she may discharge to [facility] tomorrow Problem Qualifiers (1) Acute respiratory failure: Qualified Codes: J96.00 - Acute respiratory failure, unspecified whether with hypoxia or hypercapnia (2) Hypothyroidism: Qualified Codes: E03.9 - Hypothyroidism, unspecified (3) Leukocytosis: Qualified Codes: D72.829 - Elevated white blood cell count, unspecified Олег Hearn MD February 10, 2018 12:33
[2018-02-10 16:00] VITALS: BP 146/67; PULSE 90; RESP 18; TEMP 97.2; O2SAT 98
[2018-02-10] MEDS: LOPERAMIDE HCL SOLN 2 MG/10 ML UDC NG PRN (17:37)
[2018-02-10 20:17] VITALS: BP 144/65; PULSE 92; RESP 18; TEMP 97.9; O2SAT 99
[2018-02-10] MEDS ORDERED: MELATONIN 5 MG TAB PO PRN (21:00)
[2018-02-10] MEDS: TEMAZEPAM 15 MG CAP PO PRN (23:29)
[2018-02-11 00:31] VITALS: BP 93/54; PULSE 88; RESP 18; TEMP 97.7; O2SAT 97
[2018-02-11 00:46] VITALS: BP 107/53; PULSE 97
[2018-02-11] MEDS: CHLORHEXIDINE GLUCONATE 2 % 1 PACK (2 CLOTHS) TOP SCH ×2 (04:00→22:37)
[2018-02-11 04:27] VITALS: BP 126/58; PULSE 93; RESP 18; TEMP 98.1; O2SAT 98
[2018-02-11 08:00] VITALS: BP 125/60; PULSE 87; RESP 18; TEMP 98; O2SAT 95
[2018-02-11] MEDS: CHLORHEXIDINE 0.12% (ORAL KIT) 15 ML CUP MT SCH ×2 (08:00→20:00)
[2018-02-11] MEDS: SODIUM CHLORIDE 0.9% FLUSH 10 ML FLUSH IV FLUSH SCH ×2 (08:32→21:00)
[2018-02-11] MEDS: amLODIPine BESYLATE 5 MG TAB PO SCH (08:32)
[2018-02-11] MEDS: MULTIVITAMIN TAB PO SCH (08:32)
[2018-02-11] MEDS: LOSARTAN 50 MG TAB PO SCH ×2 (08:32→22:36)
[2018-02-11] MEDS: PANTOPRAZOLE SODIUM 40 MG VIAL IV PUSH SCH (08:33)
[2018-02-11] MEDS: NYSTATIN SUSP 500,000 U/5 ML CUP SWISH-SWAL SCH ×4 (08:33→22:37)
[2018-02-11] MEDS: POTASSIUM CHLORIDE 25 MEQ EFFERVESCENT TAB NG SCH ×2 (08:33→22:35)
[2018-02-11] MEDS: carBAMazepine SUSP 200 MG/10 ML UDC NG SCH ×2 (08:38→21:00)
[2018-02-11] MEDS: ARTIFICIAL TEARS OPTH SOLN 15 ML BTL EACH EYE SCH ×3 (08:41→17:20)
[2018-02-11] MEDS: NS + KCL 40 MEQ INJ 1,000 ML IV SCH (11:07)
[2018-02-11 12:00] VITALS: BP 133/63; PULSE 85; RESP 18; TEMP 97.6; O2SAT 98
[2018-02-11] MEDS: LOPERAMIDE HCL SOLN 2 MG/10 ML UDC NG PRN (12:54)
[2018-02-11] MEDS ORDERED: LOPERAMIDE HCL 2 MG CAP PO PRN (15:30)
--- NOTE | 2018-02-11 15:49 | HHI.PR ---
Subjective Remarks Patient was unable to eat adequate calories yesterday. She ate 80% of her breakfast, 50% of her lunch, no dinner. She states she is tired of pure eggs. Objective Vitals Vital Signs Date Time Temp Pulse Resp B/P (MAP) Pulse Ox O2 Delivery O2 Flow Rate FiO2 02/11/18 12:00 97.6 85 18 133/63 (86) 98 02/11/18 08:00 98.0 87 18 125/60 (81) 95 02/11/18 04:27 98.1 93 18 126/58 (80) 98 02/11/18 00:46 97 107/53 (71) 02/11/18 00:31 97.7 88 18 93/54 (67) 97 02/10/18 20:17 97.9 92 18 144/65 (91) 99 02/10/18 16:00 97.2 90 18 146/67 (93) 98 I/O 02/10/18 02/10/18 02/10/18 02/11/18 02/11/18 02/11/18 07:00 15:00 23:00 07:00 15:00 23:00 Output Total 400 ml Balance -400 ml Output Urine Total 400 ml # Voids 1 2 Objective Remarks GENERAL: Weak elderly female SKIN: Warm and dry. HEAD: Frosted coating over tongue EYES: No scleral icterus. No injection or drainage. NECK: Supple, trachea midline. No JVD or lymphadenopathy. CARDIOVASCULAR: Regular rate and rhythm without murmurs, gallops, or rubs. RESPIRATORY: Breath sounds equal bilaterally. No accessory muscle use. GASTROINTESTINAL: Abdomen soft, non-tender, nondistended. EXTREMITIES: No cyanosis, or edema. NEUROLOGICAL: Awake, alert, and oriented x 3. Non-focal. A/P Problem List: (1) Acute respiratory failure ICD Code: J96.00 - Acute respiratory failure, unspecified whether with hypoxia or hypercapnia (2) Intracranial hemorrhage ICD Code: I62.9 - Nontraumatic intracranial hemorrhage, unspecified Status: Acute (3) Hypertensive emergency ICD Code: I16.1 - Hypertensive emergency Status: Acute (4) Hypothyroidism ICD Code: E03.9 - Hypothyroidism, unspecified Status: Chronic (5) Dystonia ICD Code: G24.9 - Dystonia, unspecified Status: Chronic (6) Leukocytosis ICD Code: D72.829 - Elevated white blood cell count, unspecified Assessment and Plan Hypertensive emergency with intracranial hemorrhage Recent CT shows no evolution of intracranial bleed, some evolution of ischemic damage (expected) Blood pressure well managed currently Continue clonidine as needed Continue PT, OT, speech Oral thrush Oral mucosa appears to be at baseline Continue nystatin swish and swallow Consider outpatient prescription for as needed use Restless leg syndrome Patient complains of constant clicking throughout the night She says she has taken melatonin for this in the past Melatonin is ordered for as needed use Requip ordered for scheduled use Food and nutrition Patient was having dysphagia recently and had Dobbhoff tube placed to maintain calorie intake Top of tube was removed, patient tolerating p.o. meals Diet is limited to pured due to swallow eval demonstrating dysfunction Extra yogurt and protein shakes will be provided at bedside IV fluids were removed and she is encouraged to take extra p.o. fluids Allowing time for her to demonstrate that she is able to eat an adequate amount of food Insomnia Patient states new dose of Restoril helped her sleep well last night Continue Restoril 15 mg nightly Lumbar spondylosis Continue tramadol as needed Continue PT, OT Insomnia Continue low-dose temazepam h/o Idiopathic nonfamilial dystonia Follow clinically Leukocytosis, hypokalemia, diarrhea All resolved DVT prophylaxis Held due to intracranial bleed SCDs Discharge planning She was unable to eat enough food yesterday. We will follow her intake today and decide tomorrow if she is ready to go based on today's intake. Problem Qualifiers (1) Acute respiratory failure: Qualified Codes: J96.00 - Acute respiratory failure, unspecified whether with hypoxia or hypercapnia (2) Hypothyroidism: Qualified Codes: E03.9 - Hypothyroidism, unspecified (3) Leukocytosis: Qualified Codes: D72.829 - Elevated white blood cell count, unspecified Олег Hearn MD February 11, 2018 15:49
[2018-02-11] MEDS: PANTOPRAZOLE SOD 40 MG DELAYED RELEASE TAB PO SCH (17:19)
[2018-02-11 17:25] LABS: AUTOMATED NEUTROPHIL # 4.2 TH/MM3 (1.8-7.7); BASOPHIL % 0.8 % (0.0-2.0); EOSINOPHIL # 0.2 TH/MM3 (0-0.4); EOSINOPHIL % 3.4 % (0.0-4.0); HEMATOCRIT 38.2 % (35.0-46.0); HEMOGLOBIN 12.8 GM/DL (11.6-15.3); LYMPH % 15.5 % (9.0-44.0); LYMPHOCYTE # 0.9 TH/MM3 (1.0-4.8); MEAN CORPUSCULAR HEMOGLOBIN 32.1 PG (27.0-34.0); MEAN CORPUSCULAR HGB CONC 33.4 % (32.0-36.0); MEAN PLATELET VOLUME 9.1 FL (7.0-11.0); MONOCYTE # 0.4 TH/MM3 (0-0.9); NEUT % 73.3 % (16.0-70.0); PLATELET COUNT 307 TH/MM3 (150-450); RED BLOOD COUNT 3.98 MIL/MM3 (4.00-5.30); RED CELL DISTRIBUTION WIDTH 13.8 % (11.6-17.2); WHITE BLOOD COUNT 5.7 TH/MM3 (4.0-11.0)
[2018-02-11 17:58] LABS: BICARBONATE 25.3 MEQ/L (21.0-32.0); CALCIUM 8.8 MG/DL (8.5-10.1); CREATININE 0.65 MG/DL (0.50-1.00)
[2018-02-11 21:20] VITALS: BP 132/82; PULSE 80; RESP 19; TEMP 97.9; O2SAT 94
[2018-02-11] MEDS: TEMAZEPAM 15 MG CAP PO PRN (22:36)
[2018-02-12] VITALS: BP 128/89; PULSE 76; RESP 18; TEMP 98; O2SAT 94
[2018-02-12] MEDS: CHLORHEXIDINE 0.12% (ORAL KIT) 15 ML CUP MT SCH ×2 (03:28→20:00)
[2018-02-12 04:45] VITALS: BP 130/88; PULSE 88; RESP 19; TEMP 97.9; O2SAT 94
[2018-02-12 08:00] VITALS: BP 124/64; PULSE 89; RESP 18; TEMP 97.3; O2SAT 94
[2018-02-12] MEDS: carBAMazepine SUSP 200 MG/10 ML UDC NG SCH ×2 (09:00→21:00)
[2018-02-12] MEDS: NYSTATIN SUSP 500,000 U/5 ML CUP SWISH-SWAL SCH ×4 (09:00→21:00)
[2018-02-12] MEDS: SODIUM CHLORIDE 0.9% FLUSH 10 ML FLUSH IV FLUSH SCH ×2 (09:00→21:59)
[2018-02-12] MEDS: ARTIFICIAL TEARS OPTH SOLN 15 ML BTL EACH EYE SCH ×3 (09:00→18:00)
[2018-02-12] MEDS: PANTOPRAZOLE SODIUM 40 MG VIAL IV PUSH SCH (09:00)
[2018-02-12] MEDS: MULTIVITAMIN TAB PO SCH (09:16)
[2018-02-12] MEDS: amLODIPine BESYLATE 5 MG TAB PO SCH (09:16)
[2018-02-12] MEDS: PANTOPRAZOLE SOD 40 MG DELAYED RELEASE TAB PO SCH (09:16)
[2018-02-12] MEDS: LOSARTAN 50 MG TAB PO SCH ×2 (09:16→21:55)
[2018-02-12] MEDS: POTASSIUM CHLORIDE 25 MEQ EFFERVESCENT TAB NG SCH ×2 (09:22→21:00)
[2018-02-12] MEDS: NS + KCL 40 MEQ INJ 1,000 ML IV SCH (10:56)
--- NOTE | 2018-02-12 11:55 | HHI.PR ---
Subjective Remarks Patient had approximately 50% of her breakfast yesterday and then 5 yogurts. She had diarrhea overnight. Complains of abdominal cramps. Objective Vitals Vital Signs Date Time Temp Pulse Resp B/P (MAP) Pulse Ox O2 Delivery O2 Flow Rate FiO2 02/12/18 08:00 97.3 89 18 124/64 (84) 94 02/12/18 04:45 97.9 88 19 130/88 (102) 94 02/12/18 00:00 98.0 76 18 128/89 (102) 94 02/11/18 21:20 97.9 80 19 132/82 (99) 94 02/11/18 12:00 97.6 85 18 133/63 (86) 98 I/O 02/11/18 02/11/18 02/11/18 02/12/18 02/12/18 02/12/18 07:00 15:00 23:00 07:00 15:00 23:00 Intake Total 500 ml 400 ml Balance 500 ml 400 ml Intake Oral 500 ml 400 ml # Voids 2 2 4 # Bowel Movements 0 0 Result Diagram: 02/11/18 1640 02/11/18 1640 Objective Remarks GENERAL: Weak elderly female SKIN: Warm and dry. HEAD: Frosted coating over tongue EYES: No scleral icterus. No injection or drainage. NECK: Supple, trachea midline. No JVD or lymphadenopathy. CARDIOVASCULAR: Regular rate and rhythm without murmurs, gallops, or rubs. RESPIRATORY: Breath sounds equal bilaterally. No accessory muscle use. GASTROINTESTINAL: Abdomen soft, non-tender, nondistended. EXTREMITIES: No cyanosis, or edema. NEUROLOGICAL: Awake, alert, and oriented x 3. Non-focal. A/P Problem List: (1) Acute respiratory failure ICD Code: J96.00 - Acute respiratory failure, unspecified whether with hypoxia or hypercapnia (2) Intracranial hemorrhage ICD Code: I62.9 - Nontraumatic intracranial hemorrhage, unspecified Status: Acute (3) Hypertensive emergency ICD Code: I16.1 - Hypertensive emergency Status: Acute (4) Hypothyroidism ICD Code: E03.9 - Hypothyroidism, unspecified Status: Chronic (5) Dystonia ICD Code: G24.9 - Dystonia, unspecified Status: Chronic (6) Leukocytosis ICD Code: D72.829 - Elevated white blood cell count, unspecified Assessment and Plan Hypertensive emergency with intracranial hemorrhage Recent CT shows no evolution of intracranial bleed, some evolution of ischemic damage (expected) Blood pressure well managed currently Continue clonidine as needed Continue PT, OT, speech Food and nutrition Patient was having dysphagia recently and had Dobbhoff tube placed to maintain calorie intake Dobbhoff tube was removed, patient tolerating p.o. meals Patient is refusing pured foods due to picky eating. She absolutely to stains pure eggs which is her main staple on this diet. Consistency change to soft mechanical, she understands risk of choking and will eat carefully, ideally more selection will give her more of an appetite Allowing time for her to demonstrate that she is able to eat an adequate amount of food so that she can qualify for transition to rehab Oral thrush Continue nystatin swish and swallow Consider outpatient prescription for as needed use Restless leg syndrome Patient complains of constant clicking throughout the night Continue melatonin Continue Requip Insomnia Continue Restoril 15 mg nightly Lumbar spondylosis Continue tramadol as needed Continue PT, OT h/o Idiopathic nonfamilial dystonia Follow clinically Leukocytosis, hypokalemia, diarrhea Diarrhea returned last night 1, Imodium provided DVT prophylaxis Held due to intracranial bleed SCDs Discharge planning She was unable to eat adequate amounts of food 2 days Problem Qualifiers (1) Acute respiratory failure: Qualified Codes: J96.00 - Acute respiratory failure, unspecified whether with hypoxia or hypercapnia (2) Hypothyroidism: Qualified Codes: E03.9 - Hypothyroidism, unspecified (3) Leukocytosis: Qualified Codes: D72.829 - Elevated white blood cell count, unspecified Олег Hearn MD February 12, 2018 11:55
[2018-02-12 12:00] VITALS: BP 133/60; PULSE 93; RESP 18; TEMP 97.5; O2SAT 96
[2018-02-12] MEDS: DICYCLOMINE HCL 20 MG TAB PO SCH ×2 (12:31→17:19)
[2018-02-12 16:00] VITALS: BP 117/61; PULSE 83; RESP 18; TEMP 97.7; O2SAT 97
[2018-02-12 20:30] VITALS: BP 129/88; PULSE 80; RESP 19; TEMP 97.7; O2SAT 95
[2018-02-12] MEDS: traMADol HCL 50 MG TAB PEG PRN (21:49)
[2018-02-12] MEDS: TEMAZEPAM 15 MG CAP PO PRN (21:58)
[2018-02-13] VITALS: BP 128/88; PULSE 88; RESP 16; TEMP 98.2; O2SAT 94
[2018-02-13 03:00] VITALS: BP 129/89; PULSE 76; RESP 19; TEMP 97.6; O2SAT 98
[2018-02-13] MEDS: CHLORHEXIDINE GLUCONATE 2 % 1 PACK (2 CLOTHS) TOP SCH (04:00)
[2018-02-13 08:00] VITALS: BP 134/65; PULSE 85; RESP 18; TEMP 97.8; O2SAT 95
[2018-02-13] MEDS: CHLORHEXIDINE 0.12% (ORAL KIT) 15 ML CUP MT SCH (08:00)
[2018-02-13] MEDS: SODIUM CHLORIDE 0.9% FLUSH 10 ML FLUSH IV FLUSH SCH (09:00)
[2018-02-13] MEDS: PANTOPRAZOLE SODIUM 40 MG VIAL IV PUSH SCH (09:00)
[2018-02-13] MEDS: NYSTATIN SUSP 500,000 U/5 ML CUP SWISH-SWAL SCH ×4 (09:00→17:16)
[2018-02-13] MEDS: carBAMazepine SUSP 200 MG/10 ML UDC NG SCH (09:14)
[2018-02-13] MEDS: POTASSIUM CHLORIDE 25 MEQ EFFERVESCENT TAB NG SCH (09:14)
[2018-02-13] MEDS: PANTOPRAZOLE SOD 40 MG DELAYED RELEASE TAB PO SCH (09:14)
[2018-02-13] MEDS: amLODIPine BESYLATE 5 MG TAB PO SCH (09:14)
[2018-02-13] MEDS: DICYCLOMINE HCL 20 MG TAB PO SCH ×3 (09:14→17:19)
[2018-02-13] MEDS: MULTIVITAMIN TAB PO SCH (09:14)
[2018-02-13] MEDS: LOSARTAN 50 MG TAB PO SCH (09:14)
[2018-02-13] MEDS: ARTIFICIAL TEARS OPTH SOLN 15 ML BTL EACH EYE SCH ×3 (09:15→17:17)
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
[2018-02-13] MEDS: NS + KCL 40 MEQ INJ 1,000 ML IV SCH (10:45)
[2018-02-13 12:00] VITALS: BP 132/66; PULSE 86; RESP 21; TEMP 97.5; O2SAT 96
[2018-02-13] MEDS: traMADol HCL 50 MG TAB PEG PRN (12:36)
[2018-02-13] MEDS ORDERED: LOPE2CAP2 PO (14:42)
[2018-02-13] MEDS ORDERED: Nystatin Liq SWISH-SWAL (14:42)
[2018-02-13] MEDS ORDERED: AMLO5 PO (14:42)
[2018-02-13] MEDS ORDERED: Albuterol Neb INH (14:42)
[2018-02-13] MEDS ORDERED: ROPI.5 PO (14:42)
[2018-02-13] MEDS ORDERED: COZA50TA PO (14:42)
[2018-02-13] MEDS ORDERED: THERTAB15 PO (14:42)
[2018-02-13] MEDS ORDERED: DICY20TA10 PO (14:42)
[2018-02-13] MEDS ORDERED: MELA5 PO (14:42)
[2018-02-13] MEDS ORDERED: CLON.1 NG (14:42)
[2018-02-13] MEDS ORDERED: CARB100C CHEW (14:45)
--- NOTE | 2018-02-13 14:49 | HHI.DS ---
Discharge Summary Admission Date Jan 23, 2018 at 19:04 Discharge Date: February 13, 2018 Admitting Diagnosis Intracranial bleed, hypertensive crisis (1) Acute respiratory failure ICD Code: J96.00 - Acute respiratory failure, unspecified whether with hypoxia or hypercapnia Diagnosis: Principal (2) Intracranial hemorrhage ICD Code: I62.9 - Nontraumatic intracranial hemorrhage, unspecified Diagnosis: Principal Status: Acute (3) Hypertensive emergency ICD Code: I16.1 - Hypertensive emergency Diagnosis: Principal Status: Acute (4) Hypothyroidism ICD Code: E03.9 - Hypothyroidism, unspecified Diagnosis: Secondary Status: Chronic (5) Dystonia ICD Code: G24.9 - Dystonia, unspecified Diagnosis: Secondary Status: Chronic (6) Leukocytosis ICD Code: D72.829 - Elevated white blood cell count, unspecified Diagnosis: Secondary Procedures intubation Brief History - From Admission This is a 77-year-old female. Date of admission 01/23/2018. Past medical history includes dystonia status post brain surgery 2, chronic left carotid stenosis since 2004, hypertension, sciatica, hypothyroidism, depression , dyslipidemia, IBS, peripheral neuropathy, gastroesophageal disease, COPD with no history of tobaccoism? chronic pericardial effusion?, Osteoarthritis with chronic respiratory weakness due to dystonia. She presents to [facility] as a stroke alert. She was last seen normal at 5:15 PM. Her son noticed slurred speech. EMS was called. Dysarthria and left-sided weakness was noted as well. She was hypertensive with systolic blood pressure in the 170s. She is complaining of generalized headache. Initially, awake and GCS is 15. Patient was also noticed to have a left-sided facial droop but as per the patient she has had a facial droop in the past. Patient is following commands. Headache is generalized. Patient is not on any blood thinners. But occasionally takes ibuprofen CT brain revealed midline posterior hemorrhage involving the vermis/cerebellar bleed. This involves the subdural, subarachnoid and intra-parenchymal space. CT angiogram of the brain revealed no signs of aneurysm. Chronic left internal carotid occlusion. Patient had decline in mental status/was not protecting her airway due to secretions and was emergently intubated by the ED physician using etomidate and succinylcholine. She is currently hypertensive in spontaneously moving her right upper extremity and lower extremity on the ventilator on 50 mg/ mg/min of propofol. Discussed with Dr. Anderson. Recommended systolic blood pressure between 110-140. No hypertonic saline. No seizure prophylaxis. Repeat brain CT in a.m. CBC/BMP: 02/11/18 1640 02/11/18 1640 Significant Findings Laboratory Tests Test 02/11/18 16:40 Red Blood Count 3.98 MIL/MM3 (4.00-5.30) Neutrophils (%) (Auto) 73.3 % (16.0-70.0) Lymphocytes # (Auto) 0.9 TH/MM3 (1.0-4.8) Random Glucose 108 MG/DL (74-106) PE at Discharge GENERAL: Weak elderly female SKIN: Warm and dry. HEAD: Frosted coating over tongue EYES: No scleral icterus. No injection or drainage. NECK: Supple, trachea midline. No JVD or lymphadenopathy. CARDIOVASCULAR: Regular rate and rhythm without murmurs, gallops, or rubs. RESPIRATORY: Breath sounds equal bilaterally. No accessory muscle use. GASTROINTESTINAL: Abdomen soft, non-tender, nondistended. EXTREMITIES: No cyanosis, or edema. NEUROLOGICAL: Awake, alert, and oriented x 3. Non-focal. Hospital Course 77-year-old female who was admitted on 416 for strokelike symptoms. Workup revealed that she had an intracranial hemorrhage secondary to hypertensive crisis. It became necessary to intubate her and she spent the first part of her hospitalization in the ICU. After is transferring from the ICU she came to [facility] where she initially had an Dobbhoff tube for supplemental feedings. She failed a calorie count initially. It was decided that her Dobbhoff tube should be pulled. Her intake was poor due to limitation of her menu on a pur ed diet. Yesterday I decided to allow her to take a soft mechanical diet. This expanded her menu options greatly and she is now eating adequate amounts of food. Her only lingering complaint is diarrhea, this is chronic, however I am sending a culture for C. difficile PCR to be on the safe side. She is currently stable for discharge and should do well with rehab. Pt Condition on Discharge: Fair Discharge Disposition: Discharge to SNF Discharge Time: <= 30 minutes Discharge Instructions DIET: Follow Instructions for: As Tolerated, No Restrictions Speech Therapy-Diet Recommends: Mechanical Soft Additional Diet Instructions: Pt unable to tolerate puree, poor intake, now doing well with soft mechanical diet, intake adequate Activities you can perform: Weight Bearing as Олег Yousif MD February 13, 2018 14:49
[2018-02-13 16:00] VITALS: BP 130/69; PULSE 87; RESP 21; TEMP 97.9; O2SAT 96
== END 2018-02-13 17:52 | DRG 64 ==
LOC: NEPE 18:22 → NEDA 19:04 → N03B 22:37 → N05A 01-28 17:28
PROVIDERS: ADMIT Family Medicine; ATTEND Family Medicine
PROC: 0BH17EZ Insertion of Endotracheal Airway into Trachea, Via Natural or Artificial Opening (ICD-10-PCS; principal; 2018-01-23)
PROC: 5A1945Z Respiratory Ventilation, 24-96 Consecutive Hours (ICD-10-PCS; 2018-01-23)
DX: I61.4 Nontraumatic intracerebral hemorrhage in cerebellum (principal); J96.00 Acute respiratory failure, unspecified whether with hypoxia or hypercapnia; R47.01 Aphasia; I50.9 Heart failure, unspecified; I11.0 Hypertensive heart disease with heart failure; B37.0 Candidal stomatitis; G24.2 Idiopathic nonfamilial dystonia; I16.1 Hypertensive emergency; G62.9 Polyneuropathy, unspecified; J44.9 Chronic obstructive pulmonary disease, unspecified; R47.1 Dysarthria and anarthria; E78.5 Hyperlipidemia, unspecified; K21.9 Gastro-esophageal reflux disease without esophagitis; M15.9 Polyosteoarthritis, unspecified; K57.90 Diverticulosis of intestine, part unspecified, without perforation or abscess without bleeding; E03.9 Hypothyroidism, unspecified; Z96.643 Presence of artificial hip joint, bilateral; Z96.611 Presence of right artificial shoulder joint; D72.829 Elevated white blood cell count, unspecified; I65.22 Occlusion and stenosis of left carotid artery; M54.30 Sciatica, unspecified side; F32.9 Major depressive disorder, single episode, unspecified; K58.0 Irritable bowel syndrome with diarrhea; M81.0 Age-related osteoporosis without current pathological fracture; R13.13 Dysphagia, pharyngeal phase; G40.909 Epilepsy, unspecified, not intractable, without status epilepticus; E87.6 Hypokalemia; F51.04 Psychophysiologic insomnia; G25.81 Restless legs syndrome; M47.816 Spondylosis without myelopathy or radiculopathy, lumbar region; R13.10 Dysphagia, unspecified; K44.9 Diaphragmatic hernia without obstruction or gangrene; M51.9 Unspecified thoracic, thoracolumbar and lumbosacral intervertebral disc disorder; M54.5 Low back pain; R00.0 Tachycardia, unspecified; Z82.3 Family history of stroke; Z86.19 Personal history of other infectious and parasitic diseases
CPT/HCPCS: 31500; 36600; 70450; 70496; 70498; 71045; 74018; 74230; 76937; 80048; 80053; 80061; 80307; 81001; 82550; 82805; 82948; 83605; 83735; 84100; 84443; 84484; 84702; 85025; 85384; 85610; 85730; 86850; 86900; 86901; 87077; 87086; 87186; 87641; 93005; 93306; 94002; 94003; 94640; 94664; C9113; J2250; J2405; J3010; J3480; J7030; J7050; J7613; Q9967